=== PATIENT | male | born 1945 | race Caucasian/White ===

== ENCOUNTER → 2017-05-05 12:41 | Outpatient (POV) | payer MEDICARE, SELFPAY | PROVIDERS: Family Provider Family Medicine; PCP Family Medicine; Visit Provider Dermatology | DX: Z00.00 Encounter for general adult medical examination without abnormal findings (principal) ==

== ENCOUNTER 2019-09-01 09:48 | Observation (INO) | payer MEDICARE, SELFPAY ==
[2019-09-01 10:00] VITALS: BP 167/80; PULSE 63; RESP 18; TEMP 37.1; O2SAT 96; BMI 31.5
--- NOTE | 2019-09-01 10:06 | CT_ITS ---
PROCEDURE: CT ABDOMEN PELVIS WO CON CLINICAL INDICATION: RLQ PAIN Right lower quadrant pain COMPARISON: No exams were available for comparison TECHNIQUE: Axial images obtained with sagittal and coronal reformats. All CT scans at the facility use one or more dose reduction, viz: automated exposure control, ma/kV adjustment per patient size (including targeted exams where dose is matched to indication, i.e. head), or iterative reconstruction technique. FINDINGS: LOWER THORAX: No acute finding. Coronary artery calcifications are present ABDOMEN & PELVIS: The liver, spleen, gallbladder, adrenal glands, and pancreas have an unremarkable unenhanced appearance. There is mild right hydronephrosis and proximal hydroureter secondary to a 4 mm stone in the proximal to mid 3rd of the right ureter. The stone is at the L4 level. There is mild stranding of the right perinephric renal fat. In addition, there is a 3 mm stone in the mid polar region of the right kidney and a 3 mm stone in the upper pole of the left kidney with bilateral renal cysts noted. No evidence of appendicitis, intestinal obstruction, free air, or diverticulitis. There are few scattered colonic diverticula. There is a tiny umbilical hernia which contains fat. There is mild thickening of the nondistended urinary bladder. There are bilateral hydroceles present of the scrotum with some minimal calcification along the inferior aspect of the right testicle nonspecific. No acute bony findings. IMPRESSION: 1. 4 mm mid to proximal right ureteral stone with mild right hydronephrosis with bilateral nephrolithiasis and mild stranding of the right perinephric renal fat 2. No evidence of appendicitis. 3. Small bilateral hydroceles 4. Other nonacute findings as described above. Dictated by: Demetris Perez MD 09/01/2019 11:10 Electronically signed by Demetris Perez MD in [place] 09/01/2019 11:10
--- NOTE | 2019-09-01 10:07 | HMH.EDABDPAI ---
ED Disposition Clinical Impression: Abdominal pain, Pancreatitis, Calculus of kidney Disposition: Admitted as Observation Condition on Discharge: Good Instructions: DI for Acute Abdomen Referrals: Gavin Charles MD [Primary Care Provider] - - Critical Care Critical Care Time: No Attestation: On 09/01/19, the high probability of a clinically significant, sudden or life threatening deterioration of the following system(s) required my full and direct attention, intervention and personal management. The time I documented below is in addition to time spent performing reported procedures but includes the following listed in this critical care notation. Medical Decision Making - Medical Records Medical records reviewed: Yes: I reviewed the patient's medical records. - Toi Inquiry Pt receiving controlled substance: No Vital Signs: 09/01/19 10:00 Temperature 98.7 F Temperature Source Oral Pulse Rate [Right Radial] 63 Respiratory Rate 18 Blood Pressure [Right Arm] 167/80 H Blood Pressure Mean [Right Arm] 109 Blood Pressure Source [Right Arm] Automatic Cuff Blood Pressure Position [Right Arm] Sitting 02 Sat by Pulse Oximetry 96 Oxygen Delivery Method Room Air - Lab Data Lab results reviewed: Yes: I reviewed the patient's lab results. Lab Results 09/01/19 10:00: WBC 8.0, RBC 4.76, Hgb 13.8 L, Hct 42.2, MCV 88.7, MCH 29.0, MCHC 32.7, RDW 14.5, Plt Count 301, MPV 8.8, Neut % (Auto) 68.6, Lymph % (Auto) 20.9, [place] % (Auto) 4.9, Eos % (Auto) 5.0, Baso % (Auto) 0.5, Neut # (Auto) 5.5, Lymph # (Auto) 1.7, [place] # (Auto) 0.4, Eos # (Auto) 0.4, Baso # (Auto) 0.0 09/01/19 10:00: Sodium 140, Potassium 4.2, Chloride 103, Carbon Dioxide 25, Anion Gap 16.2 H, BUN 25 H, Creatinine 1.50 H, Estimated Creat Clear 61, Estimated GFR 46 L, Est GFR ( Amer) 55 L, Glucose 216 H, Calcium 9.7, Total Bilirubin 0.5, AST 26, ALT 28, Alkaline Phosphatase 44, Total Protein 8.2, Albumin 4.5, Globulin 3.7 H, Albumin/Globulin Ratio 1.2, Amylase 128 H, Lipase 2569 H 09/01/19 10:07: Urine Color Yellow, Urine Appearance Clear, Urine pH 6.0, Ur Specific [place] 1.025, Urine Protein 2+, Urine Glucose (UA) Negative, Urine Ketones Negative, Urine Blood 2+, Urine Nitrate Negative, Urine Bilirubin Negative, Urine Urobilinogen 0.2, Ur Leukocyte Esterase Negative, Urine RBC 10-20, Urine WBC Occasional, Ur Squamous Epith Cells 3-5, Urine Bacteria Trace Result diagrams: 09/01/19 10:00 09/01/19 10:00 Orders (Tests/Meds): ED MEDICATIONS Generic Name Dose Route Start Last Admin Trade Name Freq PRN Reason Stop Dose Admin Sodium Chloride 1,000 mls @ 999 mls/hr 09/01/19 10:54 09/01/19 11:00 Sod Chlor 0.9% 1000ml Bag IV 09/01/19 11:54 999 mls/hr .Q1H1M ONE Administration Discontinued Medications Generic Name Dose Route Start Last Admin Trade Name Freq PRN Reason Stop Dose Admin Ketorolac Tromethamine 30 mg 09/01/19 10:06 09/01/19 10:08 Toradol 30mg/Ml Vial IV 09/01/19 10:07 30 mg ONCE ONE Administration Ondansetron HCl 4 mg 09/01/19 10:06 09/01/19 10:08 Zofran 4mg/2ml Vial IV 09/01/19 10:07 4 mg ONCE ONE Administration - CT Data CT Scan: Abdomen, Pelvis Time Received: 11:19 Preliminary Findings: Abnormal (1. 4 mm mid to proximal right ureteral stone with mild right hydronephrosis with bilateral nephrolithiasis and mild stranding of the right perinephric renal fat ) Medical Decision Narrative: Spoke to Dr. Starr of admission for this patient for acute pancreatitis and calculus of right kidney 4 mm stone in the UVJ. Abdominal Pain HPI - General Chief Complaint: Abdominal Pain Stated Complaint: Abdominal Pain,nausea Time Seen by Provider: 09/01/19 10:08 Mode of Arrival: Ambulatory Limitations: No Limitations Description of Symptoms (Recalled from ER Triage Doc. by RN): PT C/O RLQ PAIN THAT BEGAN THIS MORNING W/ PAIN INDUCED NAUSEA. PT ADVISES THAT HE THOUGHT IT WAS D/T THE NEED TO HAVE A BM. PT STA
[2019-09-01 10:13] LABS: Microscopic, Urine URINE MICROSCOPIC (MICROSCOPIC)
[2019-09-01 10:17] LABS: Basophils % 0.5 % (0.1-2.0); Eosinophils # 0.4 K/mm3 (0.0-0.4); Hematocrit 42.2 % (42.0-52.0); Hemoglobin 13.8 g/dL (14.1-18.0); Lymphocytes # 1.7 K/mm3 (0.7-4.5); Lymphocytes % 20.9 % (10-50); Mean Corpuscular HGB Conc 32.7 g/dL (31.8-35.4); Mean Corpuscular Volume 88.7 fl (80-94); Mean Platelet Volume 8.8 fl (7.4-10.4); Monocytes # 0.4 K/mm3 (0.1-1.0); Monocytes % 4.9 % (1.7-9.3); Neutrophils # 5.5 K/mm3 (1.8-7.8); Neutrophils % 68.6 % (37.0-80.0); Platelet Count 301 K/mm3 (142-424); Red Blood Count 4.76 M/mm3 (4.60-6.20); Red Cell Distribution Width 14.5 % (11.5-17.5)
[2019-09-01 10:18] LABS: Chloride 103 mmol/L (98-107)
[2019-09-01 10:19] LABS: Potassium 4.2 mmoL/L (3.5-5.1); Sodium 140 mmol/L (136-145)
[2019-09-01 10:21] LABS: Alanine Aminotransferase 28 U/L (12-78); Alkaline Phosphatase 44 U/L (38-126); Amylase 128 U/L (30-110); Anion Gap 16.2 mEq/L (5-15); Aspartate Amino Transferase 26 U/L (17-59); Bilirubin,Total 0.5 mg/dl (0.2-1.3); Blood Urea Nitrogen 25 mg/dl (9-20); Carbon Dioxide 25 mmol/L (22.0-30.0); Creatinine Clearance Estimated 61 mL/min (50-200); Estimated Glomerular Filt Rate 46 ml/min (>60); GFR (African American) 55 ML/MIN (>60)
[2019-09-01 10:22] LABS: Albumin Level 4.5 g/dl (3.5-5.0); Albumin/Globulin Ratio 1.2 (1.1-1.8); Calcium 9.7 mg/dl (8.4-10.2); Globulin 3.7 g/dL (1.3-3.2); Glucose 216 mg/dl (74-100); Total Protein,Serum 8.2 g/dl (6.3-8.2)
[2019-09-01 10:26] LABS: Appearance,Urine CLEAR (Clear); Bilirubin,Urine Negative (Negative); Blood, Urine 2+ (Negative); Color,Urine YELLOW (Yellow); Glucose,Urine (UA) Negative (Negative); Ketones,Urine Negative (Negative); Leukocyte Esterase,Urine Negative (Negative); Nitrate,Urine Negative (Negative); Protein,Urine 2+ (Negative); Specific Gravity, Urine 1.025 (1.005-1.030); Urobilinogen,Urine 0.2 EU/dl (0.2)
--- NOTE | 2019-09-01 10:31 | PC.NURSE ---
PT HAS RETURNED FROM RAD AT THIS TIME.
[2019-09-01 10:40] LABS: Lipase 2569 U/L (23-300)
--- NOTE | 2019-09-01 10:53 | PC.NURSE ---
PAGING DR CABRERA AT THIS TIME. 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
[2019-09-01 10:57] LABS: Bacteria,Urine Trace /lpf; WBC,Urine Occasional #/hpf (0-3)
--- NOTE | 2019-09-01 11:22 | PC.NURSE ---
SPEAKING WITH DR CABRERA AT THIS TIME.
--- NOTE | 2019-09-01 11:30 | PC.NURSE ---
CALLED CHARGE NURSE FOR BED ASSIGNMENT. PATIENT WILL BE ADMITTED TO ROOM 209. ER STAFF NOTIFIED
[2019-09-01 11:47] VITALS: BMI 27.6
--- NOTE | 2019-09-01 11:52 | PC.NURSE ---
Per Maggy Garner RN orders received from Dr. Goodwin for FSBS ACHS w/ low intensity sliding scale. Orders read back and verified.
[2019-09-01 12:00] VITALS: BP 170/90; PULSE 83; RESP 20; TEMP 36.7; O2SAT 98
[2019-09-01 12:18] VITALS: BP 154/85; PULSE 80; RESP 20; TEMP 36.8; O2SAT 98
--- NOTE | 2019-09-01 12:56 | HMH.HP ---
*Admission Date: 09/01/19 *Chief complaint: Abdominal pain *History of present illness: Mr. Weber is a 73-year-old white male who developed sudden onset of right lower quadrant pain earlier this morning. He initially thought it was related to constipation but after using a suppository and having a satisfactory bowel movement, the pain persisted and gradually worsened until he presented to the emergency room. He had no complaints of nausea, vomiting, or fever. He was worked up in the emergency room and found to have a normal white count. Metabolic profile was fairly unremarkable except for some chronic renal insufficiency. His amylase was mildly elevated at 128 but the lipase was significantly elevated at 2500. Urinalysis showed microscopic hematuria. He was initially felt to have pancreatitis but CT scan of the abdomen was carried out with findings of a 4 mm right distal ureteral stone with mild hydronephrosis. This finding is most consistent with his presentation. The pancreas appeared unremarkable on the CT scan. He does have a past history of kidney stones all of which he has passed spontaneously. [facility] History Medical History: Reports:: Diabetes Mellitus Type 2, Hyperlipidemia, Hypertension, Kidney Stones, Renal Insufficiency Denies:: Atherosclerotic Heart Disease, Congestive Heart Failure, Chronic Obstructive Pulmonary Disease (COPD), Diabetes Mellitus Type 1, Gall Bladder Disease *Have you ever received a pneumonia vaccine?: Yes *Have you received a flu vaccine this season?: Yes Other Medical History: Reports: Hypothyroidism, Other (Hyperuricemia, hyperlipidemia, BPH) Other Surgeries: Yes: Other (Dental implants) - *Social History Educational Level: Completed College Smoking Status: Former smoker Alcohol Intake: never *Occupational Status:: retired Housing: house Household Members: spouse *Travel in the last 8 weeks: None Family Hx:: No significant family history Review of Systems - Constitutional Denies body ache(s), Denies chills, Denies night sweats - Eyes Denies change in vision - ENT Denies difficulty swallowing - *Cardiovascular Denies chest pain with activity, Denies shortness of breath, Denies rapid, pounding, or irregular heartbeat - *Respiratory Denies chest congestion, Denies cough, Denies shortness of breath - *Gastrointestinal Reports change in bowel habits, Denies black, tarry stools, Denies nausea - *Genitourinary Reports urinary hesitancy (Takes Flomax), Denies difficulty urinating, Denies painful urination, Denies blood in urine - *Musculoskeletal Denies joint pain, Denies muscle weakness - Integumentary/Breasts Denies yellowing of the skin, Denies unusual bruising - *Neurologic Denies confusion, Denies dizziness - Psychiatric Denies anxiety, Denies depression - Endocrine Denies flushing - Hematologic/Lymphatic Denies easy bruising Meds Home Medications Medication Instructions Recorded Confirmed Type Amlodipine Besylate [Amlodipine 10 mg PO DAILY 09/01/19 09/01/19 History 10mg Tab] Fenofibrate 160 mg PO DAILY 09/01/19 09/01/19 History Levothyroxine Sodium 125 mcg PO DAILY 09/01/19 09/01/19 History [Levothyroxine 125mcg (0.125mg) Tab] Losartan Potassium [Cozaar 100mg 100 mg PO DAILY 09/01/19 09/01/19 History Tablets] Metformin HCl [Metformin 1000mg 1,000 mg PO BID 09/01/19 09/01/19 History Tablets] Tamsulosin HCl 0.4 mg PO BID 09/01/19 09/01/19 History allopurinoL [Allopurinol 100mg 100 mg PO DAILY 09/01/19 09/01/19 History tablet] carvediloL [Carvedilol 25mg Tab] 25 mg PO BID 09/01/19 09/01/19 History hydroCHLOROthiazide [HCTZ 25mg 12.5 mg PO DAILY 09/01/19 09/01/19 History tab] Allergies Allergy/AdvReac Type Severity Reaction Status Date / Time No Known Allergies Allergy Unverified 09/01/19 11:57 Exam Vital signs and Labs for Last 24 Hours: Temp Pulse Resp BP Pulse Ox 98.2 F 80 20 154/85 H 96 08/31
[2019-09-01 13:10] LABS: POC Glucose,Bedside 194 (70-110)
--- NOTE | 2019-09-01 14:03 | P.CONPHA_ITS ---
[facility] Pharm[facility] VTE Monitoring - Patient Demographics Admission date: 09/01/19 Report Date: 09/01/19 Time: 14:03 Allergies/Adverse Reactions: Patient Allergies No Known Allergies Allergy (Unverified 09/01/19 11:57) Height: 1.78 m Weight: 99.79 kg Patient Problems: Current Active Problems Abdominal pain (Acute) Pancreatitis (Acute) Calculus of kidney (Acute) Right lower quadrant abdominal pain (Acute) Right ureteral calculus (Acute) Hypertension (Acute) Hyperlipidemia (Acute) Hypothyroidism (Acute) BPH (benign prostatic hyperplasia) (Acute) Type 2 diabetes mellitus (Acute) - VTE Risk Labs: VTE Related Lab Results Hgb 13.8 g/dL (14.1-18.0) L 09/01/19 10:00 Hct 42.2 % (42.0-52.0) 09/01/19 10:00 Plt Count 301 K/mm3 (142-424) 09/01/19 10:00 BUN 25 mg/dl (9-20) H 09/01/19 10:00 Creatinine 1.50 mg/dl (0.66-1.25) H 09/01/19 10:00 Estimated Creat Clear 61 mL/min (50-200) 09/01/19 10:00 Was VTE Risk Assessment Performed: Yes VTE Risk Level: Very Low Risk - Prophylaxis VTE Prophylaxis Ordered?: Yes Types of VTE Prophylaxis: TEDS Knee High Location of Applied Device: Bilateral Lower Extremeties
[2019-09-01 16:00] VITALS: BP 163/94; PULSE 56; RESP 18; TEMP 36.4; O2SAT 96
[2019-09-01 16:45] LABS: POC Glucose,Bedside 132 (70-110)
--- NOTE | 2019-09-01 19:26 | PC.NURSE ---
Dr. Vargas contacted. Aware of consult.
[2019-09-01 20:00] VITALS: BP 146/86; PULSE 54; RESP 18; TEMP 36.5; O2SAT 95
[2019-09-01 20:36] LABS: POC Glucose,Bedside 99 (70-110)
[2019-09-02 04:00] VITALS: BP 169/93; PULSE 63; RESP 17; TEMP 36.9; O2SAT 97
--- NOTE | 2019-09-02 04:55 | PC.NURSE ---
Addendum entered by Magno Edgar RN 09/02/19 07:14: No stone passed this shift. Original Note: Pt slept in long intervals this shift. Pt did have c/o moderate abdominal pain and was medicated per BARBARA w/ relief. Carvedilol held per MD orders for HR <60. No c/o dizziness, N/V/D, or SOA. Pt is tolerating diet restriction of ice chips w/o issues. Refused TEDS. Urine continues to be strained.
[2019-09-02 05:11] VITALS: BMI 30.3
--- NOTE | 2019-09-02 05:42 | PC.NURSE ---
pt weight this am is 212.1lb on bed scale #3202, all extra pillows and blankets were removed, nurse at bedside while reweighing pt. previous shift recorded weight of 192.3lb on bed scale 3208. RN aware of weight change.
[2019-09-02 05:48] LABS: POC Glucose,Bedside 130 (70-110)
[2019-09-02 07:23] LABS: Basophils % 0.5 % (0.1-2.0); Eosinophils # 0.4 K/mm3 (0.0-0.4); Eosinophils % 3.9 % (0.1-12.0); Hematocrit 35.7 % (42.0-52.0); Lymphocytes # 1.6 K/mm3 (0.7-4.5); Lymphocytes % 17.9 % (10-50); Mean Corpuscular HGB Conc 33.5 g/dL (31.8-35.4); Mean Corpuscular Hemoglobin 29.6 pg (27.0-31.2); Mean Corpuscular Volume 88.3 fl (80-94); Mean Platelet Volume 8.9 fl (7.4-10.4); Monocytes # 0.5 K/mm3 (0.1-1.0); Monocytes % 5.6 % (1.7-9.3); Neutrophils # 6.4 K/mm3 (1.8-7.8); Neutrophils % 72.1 % (37.0-80.0); Platelet Count 247 K/mm3 (142-424); Red Blood Count 4.05 M/mm3 (4.60-6.20); Red Cell Distribution Width 14.6 % (11.5-17.5); White Blood Count 8.9 K/mm3 (4.8-10.8)
[2019-09-02 07:31] LABS: Alanine Aminotransferase 20 U/L (12-78); Albumin Level 3.8 g/dl (3.5-5.0); Albumin/Globulin Ratio 1.2 (1.1-1.8); Alkaline Phosphatase 40 U/L (38-126); Amylase 61 U/L (30-110); Anion Gap 10.9 mEq/L (5-15); Aspartate Amino Transferase 29 U/L (17-59); Bilirubin,Total 0.4 mg/dl (0.2-1.3); Blood Urea Nitrogen 21 mg/dl (9-20); Calcium 8.8 mg/dl (8.4-10.2); Carbon Dioxide 27 mmol/L (22.0-30.0); Chloride 104 mmol/L (98-107); Chol/HDL Ratio 4.4 (1-3.5); Cholesterol 144 mg/dl (140-200); Creatinine Clearance Estimated 63 mL/min (50-200); Estimated Glomerular Filt Rate 50 ml/min (>60); GFR (African American) 60 ML/MIN (>60); Globulin 3.1 g/dL (1.3-3.2); Glucose 144 mg/dl (74-100); HDL Cholesterol 33 mg/dl (40-60); Lipase 328 U/L (23-300); Potassium 3.9 mmoL/L (3.5-5.1); Sodium 138 mmol/L (136-145); Total Protein,Serum 6.9 g/dl (6.3-8.2); Triglycerides 210 mg/dl (30-150); VLDL Cholesterol 42 mg/dL (0-40)
[2019-09-02 07:42] LABS: Direct LDL Cholesterol 87.55 mg/dL (100-129)
[2019-09-02 08:00] VITALS: BP 156/72; PULSE 56; RESP 17; TEMP 36.7; O2SAT 96
--- NOTE | 2019-09-02 09:09 | HMH.ACPN2 ---
Internal Medicine - PN: Wilmer *Date: 09/02/19 *Time: 09:09 Interval history: He has required a couple of doses of pain medicine since yesterday but rested fairly well last night. He has not passed any stones. Overall his pain is improved. He denies nausea and feels a little hungry. Exam Vital signs and Labs for Last 24 Hours: Temp Pulse Resp BP Pulse Ox 98.1 F 56 L 17 156/72 H 96 09/02/19 08:00 09/02/19 08:00 09/02/19 08:00 09/02/19 08:00 09/02/19 08:00 Laboratory Results - last 24 hr 09/01/19 10:00: WBC 8.0, RBC 4.76, Hgb 13.8 L, Hct 42.2, MCV 88.7, MCH 29.0, MCHC 32.7, RDW 14.5, Plt Count 301, MPV 8.8, Neut % (Auto) 68.6, Lymph % (Auto) 20.9, Saline % (Auto) 4.9, Eos % (Auto) 5.0, Baso % (Auto) 0.5, Neut # (Auto) 5.5, Lymph # (Auto) 1.7, Saline # (Auto) 0.4, Eos # (Auto) 0.4, Baso # (Auto) 0.0 09/01/19 10:00: Sodium 140, Potassium 4.2, Chloride 103, Carbon Dioxide 25, Anion Gap 16.2 H, BUN 25 H, Creatinine 1.50 H, Estimated Creat Clear 61, Estimated GFR 46 L, Est GFR ( Amer) 55 L, Glucose 216 H, Calcium 9.7, Total Bilirubin 0.5, AST 26, ALT 28, Alkaline Phosphatase 44, Total Protein 8.2, Albumin 4.5, Globulin 3.7 H, Albumin/Globulin Ratio 1.2, Amylase 128 H, Lipase 2569 H 09/01/19 10:07: Urine Color Yellow, Urine Appearance Clear, Urine pH 6.0, Ur Specific [place] 1.025, Urine Protein 2+, Urine Glucose (UA) Negative, Urine Ketones Negative, Urine Blood 2+, Urine Nitrate Negative, Urine Bilirubin Negative, Urine Urobilinogen 0.2, Ur Leukocyte Esterase Negative, Urine RBC 10-20, Urine WBC Occasional, Ur Squamous Epith Cells 3-5, Urine Bacteria Trace 09/01/19 13:03: POC Glucose 194 H 09/01/19 16:37: POC Glucose 132 H 09/01/19 20:18: POC Glucose 99 09/02/19 05:40: POC Glucose 130 H 09/02/19 06:45: WBC 8.9, RBC 4.05 L, Hgb 12.0 L D, Hct 35.7 L, MCV 88.3, MCH 29.6, MCHC 33.5, RDW 14.6, Plt Count 247, MPV 8.9, Neut % (Auto) 72.1, Lymph % (Auto) 17.9, [place] % (Auto) 5.6, Eos % (Auto) 3.9, Baso % (Auto) 0.5, Neut # (Auto) 6.4, Lymph # (Auto) 1.6, Saline # (Auto) 0.5, Eos # (Auto) 0.4, Baso # (Auto) 0.0 09/02/19 06:45: Sodium 138, Potassium 3.9, Chloride 104, Carbon Dioxide 27, Anion Gap 10.9, BUN 21 H, Creatinine 1.40 H, Estimated Creat Clear 63, Estimated GFR 50 L, Est GFR ( Amer) 60, Glucose 144 H D, Calcium 8.8, Total Bilirubin 0.4, AST 29, ALT 20 D, Alkaline Phosphatase 40, Total Protein 6.9, Albumin 3.8 D, Globulin 3.1, Albumin/Globulin Ratio 1.2, Triglycerides 210 H, Cholesterol 144, LDL Cholesterol Direct 87.55 L, VLDL Cholesterol 42 H, HDL Cholesterol 33 L, Cholesterol/HDL Ratio 4.4 H, Amylase 61 D, Lipase 328 H I & O for Last 24 hours: Intake & Output 08/30/19 08/31/19 09/01/19 09/02/19 11:59 11:59 11:59 11:59 Intake Total 3861 / 3861 Output Total 500 / 500 Balance 3361 / 3361 Weight 192 lb 6 oz 212 lb 1 oz Narrative: Sitting up in bed alert and in no distress. Color is normal. Lungs are clear. Heart is regular. Abdomen is soft and nondistended with only minimal right lower quadrant tenderness. No CVA tenderness. Assessment and Plan (1) Right lower quadrant abdominal pain Current visit: Yes Status: Acute Category: Medical Code(s): R10.31 - Right lower quadrant pain (2) Right ureteral calculus Current visit: Yes Status: Acute Category: Medical Code(s): N20.1 - Calculus of ureter (3) Pancreatitis Current visit: Yes Status: Acute Category: Medical Code(s): K85.90 - Acute pancreatitis without necrosis or infection, unspecified (4) Hypertension Current visit: Yes Status: Acute Category: Medical Code(s): I10 - Essential (primary) hypertension (5) Hyperlipidemia Current visit: Yes Status: Acute Category: Medical Code(s): E78.5 - Hyperlipidemia, unspecified (6) Hypothyroidism Current visit: Yes Status: Acute Category: Medical Code(s): E03.9 - Hypothyroidism, unspecified (7) BPH (benign prostatic hyperplasia) Current visit: Yes Sta
[2019-09-02 11:23] LABS: POC Glucose,Bedside 158 (70-110)
[2019-09-02 16:00] VITALS: BP 158/87; PULSE 58; RESP 16; TEMP 36.6; O2SAT 96
[2019-09-02 16:23] LABS: POC Glucose,Bedside 164 (70-110)
--- NOTE | 2019-09-02 16:31 | PC.NURSE ---
PT IS RESTING IN BED. NO COMPLAINTS OF DISCOMFORT. ALERT AND ORIENTED X4. PT HAS TOLERATED FULL LIQUID DIET. NS INFUSING @125MLS/HR. AMBULATED AROUND THE ROOM. VSS. BETA VEGA HELD THIS SHIFT ( HR ONLY 56 ). CONTINUING TO STRAIN URINE. LUNG SOUNDS CLEAR. BOWEL SOUNDS NORMAL. PT STATES HIS LAST BOWEL MOVEMENT WAS YESTERDAY MORNING. SHOWER AND LINEN CHANGE THIS SHIFT. WILL CONTINUE TO MONITOR.
[2019-09-02 20:00] VITALS: BP 177/90; PULSE 51; RESP 16; TEMP 36.8; O2SAT 97
[2019-09-02 21:38] LABS: POC Glucose,Bedside 110 (70-110)
[2019-09-03 04:00] VITALS: BP 171/93; PULSE 53; RESP 16; TEMP 36.7; O2SAT 97
--- NOTE | 2019-09-03 05:07 | PC.NURSE ---
No acute changes noted. Pt has rested well this shift. C/O some abdominal discomfort at beginning of shift. No additional complaints noted. VSS. Medication administered per jun. Pt is NPO for AM US. Call light within reach. Will continue to monitor.
[2019-09-03 05:50] VITALS: BMI 23.3
[2019-09-03 06:27] LABS: Chloride 109 mmol/L (98-107); Potassium 3.6 mmoL/L (3.5-5.1); Sodium 139 mmol/L (136-145)
[2019-09-03 06:30] LABS: Anion Gap 7.6 mEq/L (5-15); Carbon Dioxide 26 mmol/L (22.0-30.0); Lipase 68 U/L (23-300)
[2019-09-03 06:31] LABS: Calcium 8.6 mg/dl (8.4-10.2); Glucose 142 mg/dl (74-100)
[2019-09-03 06:35] LABS: Blood Urea Nitrogen 13 mg/dl (9-20); Creatinine Clearance Estimated 52 mL/min (50-200); Estimated Glomerular Filt Rate 54 ml/min (>60); GFR (African American) 65 ML/MIN (>60)
[2019-09-03 07:57] LABS: POC Glucose,Bedside 135 (70-110)
[2019-09-03 08:00] VITALS: BP 176/80; PULSE 59; RESP 20; TEMP 36.7; O2SAT 95
--- NOTE | 2019-09-03 08:00 | US_ITS ---
PROCEDURE: US GALLBLADDER CLINICAL INDICATION: pancreatitis Pain, history of pancreatitis COMPARISON: CT ABDOMEN PELVIS WO CON from 09/01/2019 FINDINGS: Pancreas: Pancreas is not well delineated due to overlying bowel gas. Liver: There is generalized increase in echogenicity of the liver consistent with hepatic steatosis.. There is appropriate direction of blood flow within a and mildly prominent portal vein measuring up to 16 mm.. Right kidney: Unremarkable appearing. No hydronephrosis. Gallbladder: No stones are evident. There is no gallbladder wall thickening. Common duct is normal in diameter. IMPRESSION: 1. Unremarkable gallbladder ultrasound. 2. Fatty liver. Mildly prominent portal vein. Dictated by: Demetris Perez MD 09/03/2019 11:50 Electronically signed by Demetris Perez MD in [place] 09/03/2019 11:50
[2019-09-03 08:10] VITALS: PULSE 59; O2SAT 95
--- NOTE | 2019-09-03 09:01 | HMH.ACPN2 ---
Internal Medicine - PN: Subj *Date: 09/03/19 *Time: 09:01 Interval history: Patient has no pain today, awaiting RUQ U/S. Exam Vital signs and Labs for Last 24 Hours: Temp Pulse Resp BP Pulse Ox 98.0 F 59 L 20 176/80 H 95 09/03/19 08:00 09/03/19 08:10 09/03/19 08:00 09/03/19 08:00 09/03/19 08:10 Laboratory Results - last 24 hr 09/02/19 11:07: POC Glucose 158 H 09/02/19 16:10: POC Glucose 164 H 09/02/19 21:12: POC Glucose 110 09/03/19 05:40: Sodium 139, Potassium 3.6, Chloride 109 H, Carbon Dioxide 26, Anion Gap 7.6, BUN 13 D, Creatinine 1.30 H, Estimated Creat Clear 52, Estimated GFR 54 L, Est GFR ( Amer) 65, Glucose 142 H, Calcium 8.6, Lipase 68 09/03/19 06:09: POC Glucose 135 H I & O for Last 24 hours: Intake & Output 08/31/19 09/01/19 09/02/19 09/03/19 23:59 23:59 23:59 23:59 Intake Total 2175 / 2175 3942 / 3942 0 / 0 Output Total 500 / 500 150 / 150 Balance 1675 / 1675 3942 / 3792 -150 / -150 Weight 192 lb 6 oz 212 lb 1 oz 163 lb 3.014 oz - Constitutional no acute distress - *Routine HEENT Exam Head: Present: normocephalic Eye: Present: EOMI ENT: Present: mucous membranes moist - *Routine Neck Exam Present: supple. Absent: lymphadenopathy - *Routine Respiratory Exam Present: CTA bilaterally - *Routine Cardiovascular Exam Present: RRR - *Routine Abdominal Exam Present: soft, normoactive bowel sounds. Absent: tenderness - *Routine Extremities Exam Absent: cyanosis, clubbing, edema - *Routine Skin Exam Present: warm. Absent: rash - *Routine Neurological Exam Present: alert, oriented X3 Assessment and Plan (1) Right lower quadrant abdominal pain Current visit: Yes Status: Acute Category: Medical Code(s): R10.31 - Right lower quadrant pain (2) Right ureteral calculus Current visit: Yes Status: Acute Category: Medical Code(s): N20.1 - Calculus of ureter (3) Pancreatitis Current visit: Yes Status: Acute Category: Medical Code(s): K85.90 - Acute pancreatitis without necrosis or infection, unspecified (4) Hypertension Current visit: Yes Status: Acute Category: Medical Code(s): I10 - Essential (primary) hypertension (5) Hyperlipidemia Current visit: Yes Status: Acute Category: Medical Code(s): E78.5 - Hyperlipidemia, unspecified (6) Hypothyroidism Current visit: Yes Status: Acute Category: Medical Code(s): E03.9 - Hypothyroidism, unspecified (7) BPH (benign prostatic hyperplasia) Current visit: Yes Status: Acute Category: Medical Code(s): N40.0 - Benign prostatic hyperplasia without lower urinary tract symptoms (8) Type 2 diabetes mellitus Current visit: Yes Status: Acute Category: Medical Code(s): E11.9 - Type 2 diabetes mellitus without complications - Assessment and plan all Dx Assessment and Plan for all problems:: Patient has improved, saline lock IVF today, check RUQ U/S.
--- NOTE | 2019-09-03 11:22 | PC.NURSE ---
1122 asked for clarification from on diet order for pt. also stated during am rounds that pt is to be saline locked following completion of bag that was infusing during rounds. Dr Charles was also notified (via nurse in office) that Dr Vargas consulted on pt and states pt is ok for d/c. he will follow up with pt on tuesday. states for pt to continue to strain urine and push fluids. no surgery necessary. awaiting call back with new orders
--- NOTE | 2019-09-03 11:43 | PC.NURSE ---
returned call at this time. pt to have low fat low cholesterol diet
--- NOTE | 2019-09-03 12:19 | HMH.CONS ---
*Admission Date: 09/01/19 *Reason for consult:: Right proximal ureteral stone *History of present illness: 73-year-old white male admitted Saturday morning with Groin pain. CT scan revealed a 4 mm right proximal ureteral stone with some moderate hydronephrosis. White count was normal at 8000 in creatinine was 1.5. His amylase was elevated at 128 and his lipase was very elevated at 2569. There is also concern that he may have some pancreatitis. Abdominal ultrasound was performed this morning and is pending. Patient denies any significant renal colic or groin pain since his admission. He appears very comfortable in his room this morning. CT scan and labs were reviewed. [facility] History Medical History: Reports:: Diabetes Mellitus Type 2, Hyperlipidemia, Hypertension, Kidney Stones, Renal Insufficiency Denies:: Atherosclerotic Heart Disease, Congestive Heart Failure, Chronic Obstructive Pulmonary Disease (COPD), Diabetes Mellitus Type 1, Gall Bladder Disease *Have you ever received a pneumonia vaccine?: Yes *Have you received a flu vaccine this season?: Yes Other Medical History: Reports: Hypothyroidism, Other (Hyperuricemia, hyperlipidemia, BPH) Other Surgeries: Yes: Other (Dental implants) - *Social History Educational Level: Completed College Smoking Status: Former smoker Alcohol Intake: never *Occupational Status:: retired Housing: house Household Members: spouse *Travel in the last 8 weeks: None Family Hx:: No significant family history Review of Systems - *Neurologic Denies confusion, Denies dizziness Meds Home Medications Medication Instructions Recorded Confirmed Type Amlodipine Besylate [Amlodipine 10 mg PO DAILY 09/01/19 09/01/19 History 10mg Tab] Aspirin 81 mg PO DAILY 09/01/19 09/01/19 History Atorvastatin Calcium [Atorvastatin 40 mg PO HS 09/01/19 09/01/19 History 40mg Tab] Fenofibrate 160 mg PO DAILY 09/01/19 09/01/19 History Levothyroxine Sodium 125 mcg PO DAILY 09/01/19 09/01/19 History [Levothyroxine 125mcg (0.125mg) Tab] Losartan Potassium [Cozaar 100mg 100 mg PO DAILY 09/01/19 09/01/19 History Tablets] Metformin HCl [Metformin 1000mg 1,000 mg PO BID 09/01/19 09/01/19 History Tablets] Tamsulosin HCl 0.8 mg PO DAILY 09/01/19 09/01/19 History allopurinoL [Allopurinol 100mg 200 mg PO DAILY 09/01/19 09/01/19 History tablet] carvediloL [Carvedilol 25mg Tab] 25 mg PO BID 09/01/19 09/01/19 History hydroCHLOROthiazide [HCTZ 25mg 12.5 mg PO DAILY 09/01/19 09/01/19 History tab] Allergies Allergy/AdvReac Type Severity Reaction Status Date / Time No Known Allergies Allergy Unverified 09/01/19 11:57 Exam Vital signs and Labs for Last 24 Hours: Temp Pulse Resp BP Pulse Ox 98.0 F 59 L 20 176/80 H 95 09/03/19 08:00 09/03/19 08:10 09/03/19 08:00 09/03/19 08:00 09/03/19 08:10 Laboratory Results - last 24 hr 09/02/19 16:10: POC Glucose 164 H 09/02/19 21:12: POC Glucose 110 09/03/19 05:40: Sodium 139, Potassium 3.6, Chloride 109 H, Carbon Dioxide 26, Anion Gap 7.6, BUN 13 D, Creatinine 1.30 H, Estimated Creat Clear 52, Estimated GFR 54 L, Est GFR ( Amer) 65, Glucose 142 H, Calcium 8.6, Lipase 68 09/03/19 06:09: POC Glucose 135 H I & O for Last 24 hours: Intake & Output 08/31/19 09/01/19 09/02/19 09/03/19 23:59 23:59 23:59 23:59 Intake Total 2175 / 2175 3942 / 3942 0 / 0 Output Total 500 / 500 150 / 150 Balance 1675 / 1675 3942 / 3792 -150 / -150 Weight 87.26 kg 96.19 kg 74.021 kg Narrative: Well-nourished white male in no apparent distress Pupils equal round reactive to light Head is normocephalic Neck is symmetric Normal respiratory effort Abdomen normal to visual inspection Alert and oriented x3 Patient able to stand and bear weight without difficulty. Internal Medicine - CN: Reslt - Labs CBC & Chem 7: 09/02/19 06:45 09/03/19 05:40 Labs: BMP 09/03/19 05:40 Sodium 139 Potassium 3.6 Chlor
[2019-09-03 14:06] VITALS: BMI 23.3
[2019-09-03 14:47] LABS: POC Glucose,Bedside 138 (70-110)
--- NOTE | 2019-09-03 15:27 | PC.NURSE ---
pt home meds were locked in drawer. pharmacy technology instructor Melia gave meds to pt prior to nurse doing dc. pt has meds at this time
--- NOTE | 2019-09-03 16:09 | HMH.PHAINT ---
DISCHARGE COUNSELING COMPLETED.
--- NOTE | 2019-09-04 22:32 | HMH.DCSUM ---
General - General Admission date:: 09/01/19 Discharge date: 09/03/19 HPI HPI: Mr. Weber is a 73-year-old white male who developed sudden onset of right lower quadrant pain earlier this morning. He initially thought it was related to constipation but after using a suppository and having a satisfactory bowel movement, the pain persisted and gradually worsened until he presented to the emergency room. He had no complaints of nausea, vomiting, or fever. He was worked up in the emergency room and found to have a normal white count. Metabolic profile was fairly unremarkable except for some chronic renal insufficiency. His amylase was mildly elevated at 128 but the lipase was significantly elevated at 2500. Urinalysis showed microscopic hematuria. He was initially felt to have pancreatitis but CT scan of the abdomen was carried out with findings of a 4 mm right distal ureteral stone with mild hydronephrosis. This finding was most consistent with his presentation. The pancreas appeared unremarkable on the CT scan. He does have a past history of kidney stones all of which he has passed spontaneously. Hospital Course Hospital Course: The patient was admitted for IV fluids and pain management. There was an incidental finding of pancreatitis, although the pancreas appeared normal on CT scan. The patient did not have a history of hyperlipidemia or gallbladder disease. He did not drink alcohol. He did take hydrochlorothiazide which has been implicated as a cause of pancreatitis, therefore this was held. He was kept n.p.o. except for his maintenance medication. His diabetes was managed with sliding scale insulin. His Flomax dose was increased to twice daily and urology was consulted. His pain improved but he did not pass the stone. His amylase markedly improved and his diet was advanced. He had a lipid profile checked and it was satisfactory. A gallbladder ultrasound was ordered. It showed fatty liver but was otherwise unremarkable. His pain resolved. He was seen in consultation by Dr. Vargas who encouraged him to drink plenty of fluids and continue to strain his urine. He felt the patient could be discharged and follow-up with him on an outpatient basis with a KUB. The patient was discharged home and will follow up with both Dr. Charles and Dr. Vargas. Objective Vital signs: Temp Pulse Resp BP Pulse Ox 98.0 F 59 L 20 176/80 H 95 09/03/19 08:00 09/03/19 08:10 09/03/19 08:00 09/03/19 08:00 09/03/19 08:10 Narrative: He is sitting up in bed alert and oriented. He is more comfortable after receiving pain medication in the emergency room. Color is normal. HEENT shows the cranium to be atraumatic and normocephalic. Sclera conjunctive are clear. Nares patent. Oropharynx is unremarkable. Neck is supple with no masses or thyromegaly. Lungs are clear to auscultation. Heart is regular with no murmurs or ectopy. Abdomen is soft and nondistended with mild right lower quadrant tenderness. No rebound or guarding. Extremities show no edema. DS: Diagnosis - Discharge Diagnosis (1) Right lower quadrant abdominal pain Status: Acute (2) Right ureteral calculus Status: Acute (3) Pancreatitis Status: Acute (4) Hypertension Status: Acute (5) Hyperlipidemia Status: Acute (6) Hypothyroidism Status: Acute (7) BPH (benign prostatic hyperplasia) Status: Acute (8) Type 2 diabetes mellitus Status: Acute Discharge Plan - Patient Discharge Instructions ACTIVITY: Continue current activity DIET: continue same diet Patient Instructions: Eating a Diet Low in Saturated Fat, Trans Fat, and Cholesterol, Acute Pancreatitis, Kidney Stones -- Adult, Fat-Restricted Diet - Follow up Plan Follow up with: Gavin Charles MD [Primary Care Provider] - 09/07/19 9:30 am Kenan Vargas MD [Staff Physician] - 09/07/19 10:30 am (please arrive 15 minutes early for kub(x-ray) prior to appointment
== END 2019-09-03 15:31 | disposition home or self-care (01) ==
LOC: ER 11:24 → 2ND 12:43
PROVIDERS: Admitting Provider Family Medicine; Emergency Provider Family Medicine; PCP Family Medicine; Visit Provider Family Medicine
DX: R10.31 Right lower quadrant pain (principal); N20.1 Calculus of ureter; K85.80 Other acute pancreatitis without necrosis or infection; E11.9 Type 2 diabetes mellitus without complications; Z79.84 Long term (current) use of oral hypoglycemic drugs; Z79.899 Other long term (current) drug therapy; I10 Essential (primary) hypertension; E78.5 Hyperlipidemia, unspecified; E03.9 Hypothyroidism, unspecified; R31.29 Other microscopic hematuria; N40.0 Benign prostatic hyperplasia without lower urinary tract symptoms; Z87.891 Personal history of nicotine dependence
CPT/HCPCS: 36415; 74176; 76705; 80048; 80053; 80061; 81001; 82150; 82962; 83690; 85025; 96365; 96375; 99284; G0378; J2405

== ENCOUNTER 2019-09-05 04:49 | Emergency (ER) | payer MEDICARE, SELFPAY ==
[2019-09-05 04:59] LABS: Microscopic, Urine URINE MICROSCOPIC (MICROSCOPIC)
[2019-09-05 05:00] VITALS: BP 152/99; PULSE 57; RESP 16; TEMP 36.6; O2SAT 99; BMI 30.4
[2019-09-05 05:02] LABS: Appearance,Urine CLEAR (Clear); Bilirubin,Urine Negative (Negative); Blood, Urine 1+ (Negative); Color,Urine YELLOW (Yellow); Glucose,Urine (UA) Negative (Negative); Ketones,Urine Negative (Negative); Leukocyte Esterase,Urine Negative (Negative); Nitrate,Urine Negative (Negative); PH,Urine 6.5 (5.0-8.5); Protein,Urine 2+ (Negative); Urobilinogen,Urine 0.2 EU/dl (0.2)
--- NOTE | 2019-09-05 05:07 | CT_ITS ---
PROCEDURE: CT ABDOMEN PELVIS WO CON CLINICAL INDICATION: flank pain Right flank pain COMPARISON: CT ABDOMEN PELVIS WO CON from 09/01/2019 TECHNIQUE: Axial images obtained with sagittal and coronal reformats. All CT scans at the facility use one or more dose reduction, viz: automated exposure control, ma/kV adjustment per patient size (including targeted exams where dose is matched to indication, i.e. head), or iterative reconstruction technique. FINDINGS: LOWER THORAX: There are coronary artery calcifications and there is mild thickening of the pericardium. There is mild thickening of the distal esophagus is well. ABDOMEN & PELVIS: The liver, gallbladder, spleen, adrenal glands, and pancreas have an unremarkable unenhanced appearance. There is persistent right hydronephrosis and proximal hydroureter secondary to a 5 mm stone which has moved to the distal 1/3 of the right ureter. The stone is now at the pelvic inlet at the S2 level. Previously this stone was at the L4 level. The stone has moved approximately 9-10 cm distally compared to the previous exam. The hydronephrosis and hydroureter on the right may be slightly worse. There is persistent stranding of the right perinephric renal fat which is slightly worse. There is a 1.9 cm hypodensity in the lower pole of the right kidney which could be due to a renal cyst. There is a nonobstructing 3 mm stone in the upper pole of the left kidney with possible small left renal cyst. No evidence of appendicitis. No intestinal obstruction or free air. No pelvic mass or abnormal fluid collection. The bowel gas pattern is nonspecific. There are degenerative changes in the lumbar spine and hips. IMPRESSION: 1. Persistent right ureteral calculus measuring approximately 5 mm which is now in the region of the pelvic inlet and has moved distally approximately 9-10 cm compared to the previous exam with persistent right hydroureteronephrosis which may be slightly worse and persistent stranding of the right perinephric renal fat which may be slightly worse. 2. Other nonacute findings including left nephrolithiasis, bilateral renal cysts, and coronary artery calcifications. There is mild thickening of the esophagus distally which could be due to soft guidance and there is mild thickening of the pericardium which could be due to small effusion. Dictated by: Demetris Perez MD 09/05/2019 06:47 Electronically signed by Demetris Perez MD in [place] 09/05/2019 06:47
[2019-09-05 05:15] LABS: Basophils # 0.1 K/mm3 (0-0.2); Basophils % 0.5 % (0.1-2.0); Eosinophils # 0.4 K/mm3 (0.0-0.4); Eosinophils % 3.5 % (0.1-12.0); Hematocrit 38.3 % (42.0-52.0); Hemoglobin 12.8 g/dL (14.1-18.0); Lymphocytes # 1.3 K/mm3 (0.7-4.5); Lymphocytes % 10.7 % (10-50); Mean Corpuscular HGB Conc 33.5 g/dL (31.8-35.4); Mean Corpuscular Hemoglobin 29.7 pg (27.0-31.2); Mean Corpuscular Volume 88.6 fl (80-94); Mean Platelet Volume 8.7 fl (7.4-10.4); Monocytes # 0.5 K/mm3 (0.1-1.0); Monocytes % 4.4 % (1.7-9.3); Neutrophils # 9.7 K/mm3 (1.8-7.8); Neutrophils % 80.9 % (37.0-80.0); Platelet Count 271 K/mm3 (142-424); Red Blood Count 4.33 M/mm3 (4.60-6.20); Red Cell Distribution Width 14.7 % (11.5-17.5)
[2019-09-05 05:23] LABS: Bacteria,Urine Trace /lpf; WBC,Urine Occasional #/hpf (0-3)
[2019-09-05 05:29] LABS: Alanine Aminotransferase 27 U/L (12-78); Albumin Level 4.6 g/dl (3.5-5.0); Albumin/Globulin Ratio 1.4 (1.1-1.8); Alkaline Phosphatase 46 U/L (38-126); Anion Gap 10.6 mEq/L (5-15); Aspartate Amino Transferase 31 U/L (17-59); Bilirubin,Total 0.3 mg/dl (0.2-1.3); Blood Urea Nitrogen 25 mg/dl (9-20); Calcium 9.4 mg/dl (8.4-10.2); Carbon Dioxide 24 mmol/L (22.0-30.0); Chloride 105 mmol/L (98-107); Creatinine Clearance Estimated 44 mL/min (50-200); Estimated Glomerular Filt Rate 33 ml/min (>60); GFR (African American) 40 ML/MIN (>60); Globulin 3.3 g/dL (1.3-3.2); Glucose 180 mg/dl (74-100); Potassium 3.6 mmoL/L (3.5-5.1); Sodium 136 mmol/L (136-145); Total Protein,Serum 7.9 g/dl (6.3-8.2)
[2019-09-05 06:20] VITALS: BP 149/96; PULSE 61; RESP 16; O2SAT 98
--- NOTE | 2019-09-05 07:13 | HMH.EDGENADL ---
ED Disposition Clinical Impression: Renal colic on right side, Renal insufficiency Disposition: Home, Self-Care Condition on Discharge: Good Instructions: DI for Kidney Stones Additional Instructions: fluids and keep appt with urology Prescriptions: Hydrocod/Acet 5/325 mg [[place] 5/325mg tablet] 1 tab PO Q6HP PRN #8 tab PRN Reason: Moderate To Severe Pain Prescription Printed Referrals: Gavin Charles MD [Primary Care Provider] - Kenan Vargas MD [Staff Physician] - - Critical Care Critical Care Time: No Attestation: On 09/05/19, the high probability of a clinically significant, sudden or life threatening deterioration of the following system(s) required my full and direct attention, intervention and personal management. The time I documented below is in addition to time spent performing reported procedures but includes the following listed in this critical care notation. Medical Decision Making - Medical Records Medical records reviewed: Yes: I reviewed the patient's medical records. - Toi Inquiry Pt receiving controlled substance: No Vital Signs: 09/05/19 05:00 09/05/19 06:20 Temperature 97.8 F Temperature Source Oral Pulse Rate [Right] 57 L 61 Respiratory Rate 16 16 Blood Pressure [Right Arm] 152/99 H 149/96 H Blood Pressure Mean [Right Arm] 116 113 Blood Pressure Source [Right Arm] Automatic Cuff Blood Pressure Position [Right Arm] Sitting Sitting 02 Sat by Pulse Oximetry 99 98 Oxygen Delivery Method Room Air Room Air - Lab Data Lab results reviewed: Yes: I reviewed the patient's lab results. Lab Results 09/05/19 04:55: Urine Color Yellow, Urine Appearance Clear, Urine pH 6.5, Ur Specific [place] 1.020, Urine Protein 2+, Urine Glucose (UA) Negative, Urine Ketones Negative, Urine Blood 1+, Urine Nitrate Negative, Urine Bilirubin Negative, Urine Urobilinogen 0.2, Ur Leukocyte Esterase Negative, Urine RBC 3-5, Urine WBC Occasional, Urine Bacteria Trace 09/05/19 05:08: WBC 12.0 H D, RBC 4.33 L, Hgb 12.8 L, Hct 38.3 L, MCV 88.6, MCH 29.7, MCHC 33.5, RDW 14.7, Plt Count 271, MPV 8.7, Neut % (Auto) 80.9 H, Lymph % (Auto) 10.7, [place] % (Auto) 4.4, Eos % (Auto) 3.5, Baso % (Auto) 0.5, Neut # (Auto) 9.7 H, Lymph # (Auto) 1.3, Shannon # (Auto) 0.5, Eos # (Auto) 0.4, Baso # (Auto) 0.1 09/05/19 05:08: Sodium 136, Potassium 3.6, Chloride 105, Carbon Dioxide 24, Anion Gap 10.6, BUN 25 H D, Creatinine 2.00 H D, Estimated Creat Clear 44, Estimated GFR 33 L, Est GFR ( Amer) 40 L D, Glucose 180 H, Calcium 9.4, Total Bilirubin 0.3, AST 31, ALT 27 D, Alkaline Phosphatase 46, Total Protein 7.9, Albumin 4.6, Globulin 3.3 H, Albumin/Globulin Ratio 1.4 Result diagrams: 09/05/19 05:08 09/05/19 05:08 Orders (Tests/Meds): ED MEDICATIONS Generic Name Dose Route Start Last Admin Trade Name Freq PRN Reason Stop Dose Admin Sodium Chloride 1,000 mls @ 999 mls/hr 09/05/19 05:15 09/05/19 05:29 Sod Chlor 0.9% 1000ml Bag IV 09/05/19 06:15 999 mls/hr .Q1H1M CHERYL Administration Discontinued Medications Generic Name Dose Route Start Last Admin Trade Name Freq PRN Reason Stop Dose Admin Ketorolac Tromethamine 30 mg 09/05/19 05:07 09/05/19 05:29 Toradol 30mg/Ml Vial IV 09/05/19 05:08 30 mg ONCE ONE Administration Ondansetron HCl 4 mg 09/05/19 05:07 09/05/19 05:29 Zofran 4mg/2ml Vial IV 09/05/19 05:08 4 mg ONCE ONE Administration - CT Data CT Scan: Abdomen, Pelvis Time Received: 07:[address] Reviewed: Yes: I have viewed the radiologist's interpretation Preliminary Findings: Abnormal (renal stone) - Physician Consults Physician Consulted: dwight Reason -: Pt condition - Reevaluation(s) Time: 07:31 Reevaluation #1: improved Medical Decision Narrative: rt flank pain with hx of kidney stone General Adult HPI - General Chief complaint: PAIN Stated complaint: Possible Kidney Stone Time Seen by Provider: 09/05/19 05:30 Mode of Arrival: Ambulatory
[2019-09-05 07:44] VITALS: BP 162/93; PULSE 63; RESP 16; TEMP 36.6; O2SAT 97
== END 2019-09-05 07:46 | disposition home or self-care (01) ==
PROVIDERS: Emergency Provider Emergency Medicine; PCP Family Medicine
DX: N23 Unspecified renal colic (principal); N28.9 Disorder of kidney and ureter, unspecified; E03.9 Hypothyroidism, unspecified; E11.9 Type 2 diabetes mellitus without complications; E78.5 Hyperlipidemia, unspecified; I10 Essential (primary) hypertension; Z87.891 Personal history of nicotine dependence; Z79.899 Other long term (current) drug therapy; Z87.442 Personal history of urinary calculi
CPT/HCPCS: 74176; 80053; 81001; 85025; 96365; 96367; 96375; 99283; J2405

== ENCOUNTER 2019-09-07 12:24 | Day surgery (SDC) | payer MEDICARE, SELFPAY ==
[2019-09-06 12:17] VITALS: BMI 30.4
[2019-09-07] VITALS (12 sets, daily range): BP systolic 139–184; BP diastolic 68–96; PULSE 47–60; RESP 16–18; TEMP 36.1–43; O2SAT 93–97
[2019-09-07 14:25] LABS: POC Glucose,Bedside 125 (70-110)
--- NOTE | 2019-09-07 15:03 | HMH.ANESCL ---
[facility] Anesthesia Checklist - Patient Identification Patient Identification: Arm Band, Verbal (Name & ) - Structural Data Admitted From: Home Planned Operative Procedure/s: cystoscopy, right ureteroscopy, holmium laser Consent for Planned Operative Procedure(s) Verified: Yes Verified Documents: Surgical Consent, History and Physical - NPO Status Verified Time NPO: 20:00 - Chart Verification Results Verified: CBC, BMP - Additional verifications Fingerstick Blood Glucose: 125 Anesthesia Reactions: No Hx Blood Transfusions: No Blood Transfusion Reaction: No - Airway Assessment C-Spine Mobility Assessed: Yes TMJ Mobility Assessed: Yes Dentition: Poor Dentition (missing teeth) - Neurological Assessment Level of Consciousness: Awake, Alert, Appropriate, Follows Commands Hx Seizures: No Numbness or tingling in extremities: No - Anesthesia Plan Anesthesia Risk discussed: Yes Anesthesia Plan: Verified ASA Class: III Anesthesia Type: General (LMA) [facility] History I have reviewed the patient's past medical history: Yes Medical History: Reports:: BPH, Diabetes Mellitus Type 2, Hyperlipidemia, Hypertension, Kidney Stones, Renal Insufficiency Denies:: Atherosclerotic Heart Disease, Cancer, Congestive Heart Failure, Chronic Obstructive Pulmonary Disease (COPD), Diabetes Mellitus Type 1, Gall Bladder Disease, Internal Pacemaker, MRSA, Seizures *Have you ever received a pneumonia vaccine?: Yes *Have you received a flu vaccine this season?: Yes Other Medical History: Reports: Hypothyroidism, Other. Denies: Blood Transfusion Reaction Comment:: Gout Anesthesia experience/problems:: none Other Surgeries: Yes: Other. No: Pacemaker Amputation: No Fractures: No Comment: TURP - *Social History Educational Level: Completed College Smoking Status: Former smoker Alcohol Intake: current Alcohol Intake Frequency:: a few times a month Substance Use Type: denies use *Occupational Status:: retired Housing: house Household Members: spouse *Travel in the last 8 weeks: None Family Hx:: No significant family history
--- NOTE | 2019-09-07 15:45 | FL_ITS ---
PROCEDURE: FL URETHROCYSTOGRAM RETRO CLINICAL INDICATION: RT STONE EXTRACTION COMPARISON: No exams were available for comparison FINDINGS: Fluoroscopy time: 58 seconds Right ureteral stent is present. The distal aspect is curled in the region of the urinary bladder. IMPRESSION: Right ureteral stent placement under fluoro Dictated by: Demetris Perez MD 09/07/2019 17:38 Electronically signed by Demetris Perez MD in [place] 09/07/2019 17:38
--- NOTE | 2019-09-07 16:23 | HMH.ANESI ---
[facility] Anesthesia Record Part I Intake, IV Amount: 1,000 Estimated blood loss (mL): 0 Urine output (mL): 0 Blood Pressure: 139/68 SaO2: 93 Pulse Rate: 48 Respiratory Rate: 16 Temperature: 98.2 F Patient is:: Drowsy, Stable Stable to PACU at:: 16:15
[2019-09-07 16:32] LABS: POC Glucose,Bedside 108 (70-110)
--- NOTE | 2019-09-07 16:40 | HMH.OPNOTE ---
Date of procedure: 09/07/19 Pre-op Diagnosis:: 5 mm right ureteral stone Post-op Diagnosis:: 5 mm right ureteral stone, right ureteral stenosis, pendulous urethral stricture Procedure performed:: Right ureteroscopy, dilation of the right ureter, laser lithotripsy of ureteral stone, stone extraction, right ureteral stent placement, dilation of pendulous urethral stricture. Surgeon:: Kenan Vargas MD NUCLEAR MEDICINE TECH:: Quincy Melendez Anesthesia: GETA Estimated blood loss (mL): 5 Clinical Note:: 73-year-old white male with 5 mm right ureteral stone is because of persistent pain. His creatinine is now elevated and he wishes to proceed with stone extraction. Operative findings:: Patient with a appetite pendulous urethral stricture as well as right ureteral narrowing and dilation of the ureter caused impaction of the ureteral stone against the ureteral wall. Operative note:: Patient taken to the operating room after informed consent was obtained. He was placed on the operating table in the supine position. General anesthesia administered preoperative antibiotics given and sequential compression devices were placed. He was then placed into the dorsal lithotomy position and prepped and draped in the standard surgical fashion. A 21 [place] cystoscope then passed into the urethra but there was a a tight stricture noted in the pendulous urethra. A guidewire was passed through the stricture and we then dilated the stricture with the ureteral navigator sheath as we could not locate any urethral dilators. We then replaced the cystoscope and I was then able to navigate the scope by the stricture and into the bladder. Bladder was examined in a systematic fashion. There is no evidence of mucosal abnormalities stones diverticula or trabeculation. The ureteral orifices in their normal anatomic position. A guidewire was passed into the right ureteral orifice and it passed by the stone without difficulty. I then removed the cystoscope and passed our semirigid ureteroscope into the bladder and into the right ureter but about 2 cm above the ureteral orifice there was a narrow area that I could not navigate. I removed the ureteroscope and repassed the navigator ureteral sheath over the guidewire and into the right ureter. Then passed the ureteroscope through the sheath but the sheath was longer than the ureteroscope so the ureteroscope was removed and the ureteral sheath was removed and the ureteroscope then repassed into the right ureter and up to the level of the stone. The stone was noted to be impacted against the right lateral wall. I tempted to free it up from its position with a stone basket but it was stuck in there pretty good. I usedthe laser fiber and broke it up a bit to see if it would free it up and the 200 nm laser fiber was passed through the scope and the visible stone was fragmented. This resulted in pushing the stone deeper and so went ahead and broke up the stone in completion and the stone basket was used to remove it from the ureteral defect. All stone was removed. The pieces of stone were passed off for analysis. The ureteroscope removed and the cystoscope was replaced and a #6 x 26 [place] stent was passed over the guidewire and under fluoroscopy the guidewire and string removed. A good curl was noted proximally and distally. The cystoscope then removed and there was noted to be a little bleeding per urethra so I decided to place a Gautam catheter to tamponade the bleeding. A 16 [place] Gautam catheter passed without difficulty and anchored. Patient tolerated procedure well without complication. Condition: stable Disposition: PACU Specimens:: Ureteral stone Complications:: None
--- NOTE | 2019-09-07 17:00 | PC.NURSE ---
1629-fsbs checked with results of 108 1642-detailed report called to ROBBIE Waite 1645-pt transported to post op via stretcher with paola rails up and left in care of ROBBIE Waite with bed locked in lowest position, vss, pt stable
--- NOTE | 2019-09-07 17:41 | HMH.ANESII ---
[facility] Anesthesia Record Part II Discharge Time: 16:45 Destination: Surgical Day Care (OP Surgery) PACU nurse assessment reviewed?: Yes Patient Condition:: Good Anesthesia Complications:: None Swallowing reflex intact?: Yes Cyanosis?: No Blood Pressure: 155/75 Pulse Rate: 47 Temperature: 97.7 F Mental Status: Alert & Oriented Pain level:: 0 Nausea and/or vomitting:: None Intake, IV Amount: 0
[2019-09-21 17:26] LABS: Specimen Type URETER
[2019-09-21 17:27] LABS: Composition SEE BELOW:
[2019-09-21 17:28] LABS: Photo TO FOLLOW
== END 2019-09-07 17:31 | disposition home or self-care (01) ==
LOC: OR 12:26
PROVIDERS: PCP Family Medicine; Visit Provider Urology
PROC: (CPT 52352; principal; 2019-09-07 14:00)
DX: N20.1 Calculus of ureter (principal); Z79.84 Long term (current) use of oral hypoglycemic drugs; I10 Essential (primary) hypertension; E03.9 Hypothyroidism, unspecified; N35.919 Unspecified urethral stricture, male, unspecified site; Z87.442 Personal history of urinary calculi; E11.9 Type 2 diabetes mellitus without complications
CPT/HCPCS: 52356; 74450; 82370; 82962; 96374; C2617; J2405

== ENCOUNTER → 2019-09-13 10:14 | Outpatient (CLI) | payer MEDICARE, SELFPAY ==
--- NOTE | 2019-09-13 10:25 | XR_ITS ---
PROCEDURE: XR KUB CLINICAL INDICATION: ureteral stone COMPARISON: CT ABDOMEN PELVIS WO CON from 09/05/2019 FINDINGS: There is a right ureteral stent in place. No obvious ureteral calculus. IMPRESSION: Right ureteral stent present in good position. Dictated by: Demetris Perez MD 09/13/2019 11:28 Electronically signed by Demetris Perez MD in [place] 09/13/2019 11:28
== END ==
PROVIDERS: PCP Family Medicine; Visit Provider Urology
DX: N20.1 Calculus of ureter (principal)
CPT/HCPCS: 74018

== ENCOUNTER → 2019-09-18 10:00 | Outpatient (CLI) | payer MEDICARE, SELFPAY ==
[2019-09-19 16:10] LABS: Covid-19 Nasal PCR Sendout Lex NOT DETECTED
== END ==
PROVIDERS: Visit Provider Urology
DX: Z03.818 Encounter for observation for suspected exposure to other biological agents ruled out (principal); N20.0 Calculus of kidney
CPT/HCPCS: U0004

== ENCOUNTER 2019-09-20 08:43 | Day surgery (SDC) | payer MEDICARE, SELFPAY ==
--- NOTE | 2019-09-17 09:00 | SUR.PREOP ---
09/17/2019 @ 0900--PHONE CALL MADE TO PATIENT. PATIENT UNDERSTANDS THAT LAB WORK AND COVID TESTING NEEDS TO BE COMPLETED @ 945 ON 09/18/2019. PATIENT UNDERSTANDS IF LAB WORK AND COVID-19 TESTS ARE NOT COMPLETED BY 12PM ON THAT DATE, THE SURGERY SCHEDULED WILL BE CANCELLED AND RESCHEDULED FOR ANOTHER TIME.
[2019-09-19 08:40] VITALS: BMI 30.1
[2019-09-20 08:59] VITALS: BP 173/73; PULSE 60; RESP 16; TEMP 36.6; O2SAT 98
[2019-09-20 09:15] LABS: POC Glucose,Bedside 221 (70-110)
[2019-09-20 10:30] VITALS: BP 173/73; PULSE 60; RESP 16; TEMP 36.6; O2SAT 98
--- NOTE | 2019-09-20 12:46 | HMH.OPNOTE ---
Date of procedure: 09/20/19 Pre-op Diagnosis:: Patient with right ureteral stent status post recent stone extraction. Post-op Diagnosis:: Same Procedure performed:: Flexible cystoscopy with stent removal Surgeon:: Kenan Vargas MD Anesthesia: local Estimated blood loss (mL): 0 Clinical Note:: 73-year-old white male status post recent right ureteroscopy and stent placement presents for stent removal. Operative findings:: Previous urethral stricture resolved. Stent removed without complication. Operative note:: Patient taken to the treatment room after informed consent was obtained. On the stretcher he was prepped and draped in the standard surgical fashion and 2% lidocaine placed into the urethra and clamped for 5 minutes. The flexible cystoscope introduced into the urethral meatus and passed into the bladder without difficulty. The previously noted tight urethral stricture was wide open. Stent was noted from the right ureteral orifice. Flexible graspers passed through the scope and the stent grasped without difficulty. Stent then removed and patient tolerated procedure well. He is to return on an as-needed basis. Condition: stable Disposition: same day Specimens:: Right ureteral stent Complications:: None
== END 2019-09-20 10:40 | disposition home or self-care (01) ==
LOC: OUTP 08:45
PROVIDERS: PCP Family Medicine; Visit Provider Urology
PROC: (CPT 52310; principal; 2019-09-20 09:45)
DX: N20.0 Calculus of kidney (principal); E11.9 Type 2 diabetes mellitus without complications; E78.5 Hyperlipidemia, unspecified; N28.9 Disorder of kidney and ureter, unspecified; N40.0 Benign prostatic hyperplasia without lower urinary tract symptoms; E03.9 Hypothyroidism, unspecified; I10 Essential (primary) hypertension; Z79.82 Long term (current) use of aspirin; Z79.84 Long term (current) use of oral hypoglycemic drugs; Z79.899 Other long term (current) drug therapy
CPT/HCPCS: 52310; 82962

== ENCOUNTER → 2019-10-29 11:23 | Outpatient (CLI) | payer MEDICARE, SELFPAY ==
[2019-10-29 12:57] LABS: Blood Urea Nitrogen 24 mg/dl (9-20); Estimated Glomerular Filt Rate 46 ml/min (>60); GFR (African American) 55 ML/MIN (>60)
== END ==
PROVIDERS: Visit Provider Family Medicine
DX: Z01.818 Encounter for other preprocedural examination (principal)
CPT/HCPCS: 36415; 82565; 84520

== ENCOUNTER → 2019-11-02 09:25 | Outpatient (CLI) | payer MEDICARE, SELFPAY ==
--- NOTE | 2019-11-02 09:31 | CT_ITS ---
PROCEDURE: CT ABDOMEN PELVIS W CON CLINICAL INDICATION: RECURRENT PANCEATITIS Abdominal discomfort COMPARISON: CT ABDOMEN PELVIS WO CON from 09/05/2019 TECHNIQUE: IV Contrast: 75ML OPTIRAY 350 Oral Contrast 450ml Redicat Axial images obtained with sagittal and coronal reformats. All CT scans at the facility use one or more dose reduction, viz: automated exposure control, ma/kV adjustment per patient size (including targeted exams where dose is matched to indication, i.e. head), or iterative reconstruction technique. FINDINGS: LOWER THORAX: No acute finding ABDOMEN & PELVIS: Mild nonspecific thickening of the distal esophagus is noted. The liver, gallbladder, spleen, adrenal glands, pancreas, have an unremarkable appearance. Nonobstructing 4 mm stone is present in the upper pole of the left kidney. There are right renal cyst. There is an isodense nodule along the lower pole of the left kidney which is indeterminate possibly due to a cyst. Renal ultrasound may confirm cystic nature of these nodules.. No evidence of pancreatitis. No peripancreatic fluid collections are evident. There is mild nonspecific stranding of the perinephric fat on the right The no evidence of appendicitis. No intestinal obstruction or free air. Scattered colonic diverticula without diverticulitis. There are small bilateral inguinal hernias containing fat. There are degenerative changes of the spine and hips IMPRESSION: 1. No acute finding. No evidence of pancreatitis. 2. Left nephrolithiasis. 3. Bilateral renal cysts with indeterminate hypodensity lower pole left kidney. Renal ultrasound may confirm cystic or solid nature Dictated by: Demetris Perez MD 11/03/2019 10:11 Electronically signed by Demetris Perez MD in [place] 11/03/2019 10:11
== END ==
PROVIDERS: PCP Family Medicine; Visit Provider Family Medicine
DX: K85.90 Acute pancreatitis without necrosis or infection, unspecified (principal)
CPT/HCPCS: 74177; Q9967

== ENCOUNTER → 2019-12-04 10:49 | Outpatient (CLI) | payer MEDICARE, SELFPAY ==
--- NOTE | 2019-12-04 10:52 | US_ITS ---
PROCEDURE: US KIDNEY CLINICAL INDICATION: RENAL CYST Hypertension. COMPARISON: CT CT ABDOMEN PELVIS W CON from 11/02/2019 FINDINGS: The right kidney is 11 x 6 x 6 cm. There is a 2.3 cm cyst along the lower pole of the right kidney. There is some mild cortical thinning on the right. The left kidney is 12 x 6 cm. There is a 2 cm cyst along the lower pole and a 12 mm cyst in the mid to lower pole region. No hydronephrosis. There is an additional 1.4 cm and 1.1 cm cyst in the mid lower aspect of the left kidney. Mild cortical thinning noted IMPRESSION: No hydronephrosis. Bilateral renal cysts. Dictated b Demetris Perez MD 12/04/2019 16:37 Demetris Perez MD in [place] 12/04/2019 16:37
== END ==
PROVIDERS: PCP Family Medicine; Visit Provider Family Medicine
DX: N28.1 Cyst of kidney, acquired (principal)
CPT/HCPCS: 76770

== ENCOUNTER → 2019-12-20 08:55 | Outpatient (CLI) | payer MEDICARE, SELFPAY ==
[2019-12-20 10:03] LABS: Coronavirus 19 IgG Antibody Negative (Negative); Coronavirus 19 IgM Antibody Negative (Negative)
== END ==
PROVIDERS: Visit Provider Internal Medicine Gastroenterology
DX: Z03.818 Encounter for observation for suspected exposure to other biological agents ruled out (principal)
CPT/HCPCS: 36415; 86328

== ENCOUNTER 2019-12-21 07:25 | Day surgery (SDC) | payer MEDICARE, SELFPAY ==
[2019-12-17 11:48] VITALS: BMI 30.4
[2019-12-21] VITALS (7 sets, daily range): BP systolic 96–166; BP diastolic 53–92; PULSE 44–63; RESP 16–18; TEMP 36.1–36.4; O2SAT 95–98
[2019-12-21 07:57] LABS: POC Glucose,Bedside 199 (70-110)
--- NOTE | 2019-12-21 08:38 | HMH.PROC ---
[facility] Procedure Note Procedure Note:: Colonoscopy Procedure Report: Colonoscopy with cold snare polypectomy Endoscopist: Ayan Bennett II, MD Referring physician: Gavin Charles MD Date of Procedure: December 21, 2019 Equipment: Olympus 180 variable stiffness pediatric colonoscope Sedation: MAC sedation Indication: Mr. Weber is a 74-year-old gentleman who is here for screening colonoscopy. His last colonoscopy in 1992 was normal. He has had some intermittent bowel irregularity with occasional constipation and occasional bowel frequency. The caliber of his stools is variable and sometimes he has the feeling of incomplete bowel evacuation. He reports no abdominal pain, weight loss, rectal bleeding or family history of colon cancer. He did have some right lower quadrant abdominal pain fairly recently and had a CAT scan in August showing kidney stones/ureteral stone. His CAT scan on November 02, 2019 did show some colonic diverticulosis but no pancreatitis. His amylase was minimally elevated at that time and he had normal liver chemistries. An ultrasound of the abdomen was unremarkable except for a fatty liver. Procedure: Prior to the procedure, a history and physical exam was performed, and patient's medications and allergies were reviewed. The risks, benefits and alternatives of the sedation and procedure were discussed with the patient. All questions were answered and informed consent was obtained. The patient was brought to the procedure room. Patient identification and proposed procedure were verified by the physician and the nurse. The patient was placed in a left lateral decubitus position and the scope was passed under direct vision. Throughout the procedure, the patient's blood pressure, pulse, and oxygen saturations were monitored continuously. The colonoscopy was accomplished without difficulty. The patient tolerated the procedure well. Findings: On digital rectal examination there was normal rectal tone. There were no external hemorrhoids. The colonoscope was introduced through the anal canal to the rectum and advanced to the cecum. The ileocecal valve and appendiceal orifice were identified. The scope was advanced a short distance into the ileum which appeared grossly normal. The scope was then withdrawn into the colon. There were 6 colon polyps (ascending x2 (4 and 4 mm), transverse x1 (2 mm) and ascending x3 (3, 5 and 8 mm)) which were all removed via cold snare polypectomy. There were a few scattered diverticuli throughout the descending and sigmoid colon (LEFT colon). The rectum itself was normal. Upon retroflexion within the rectum there were grade 1-2 internal hemorrhoids. There was also angiodysplasias/telangiectasias in the distal rectum consistent with radiation proctitis. The preparation was excellent throughout with Yoder Preparation Score of 9. The cecal time was 12 minutes. Impression: 1. Colonic polyps x6 2. Left-sided diverticulosis 3. Mild radiation proctitis 4. Grade 1-2 internal hemorrhoids Plan: I will follow up the polyp pathology and recommend repeat colonoscopy again in 3-5 years based upon the polyp histology. I would encourage bulk fiber supplementation on a long-term daily maintenance basis.
--- NOTE | 2019-12-21 08:41 | P.PN_ITS ---
[facility] Anesthesia Checklist - Patient Identification Patient Identification: Arm Band - Structural Data Admitted From: Home Planned Operative Procedure/s: colonoscopy Consent for Planned Operative Procedure(s) Verified: Yes Verified Documents: Surgical Consent, History and Physical - NPO Status Verified Time NPO: 00:00 - Additional verifications Anesthesia Reactions: No Hx Blood Transfusions: No Blood Transfusion Reaction: No - Airway Assessment C-Spine Mobility Assessed: Yes (mp2) TMJ Mobility Assessed: Yes Dentition: Good Dentition - Neurological Assessment Level of Consciousness: Awake, Alert - Anesthesia Plan Anesthesia Risk discussed: Yes Anesthesia Plan: Verified ASA Class: III Anesthesia Type: MAC [facility] History I have reviewed the patient's past medical history: Yes Medical History: Reports:: BPH, Diabetes Mellitus Type 2, Hyperlipidemia, Hypertension, Kidney Stones, Renal Insufficiency Denies:: Atherosclerotic Heart Disease, Cancer, Congestive Heart Failure, Chronic Obstructive Pulmonary Disease (COPD), Diabetes Mellitus Type 1, Gall Bladder Disease, Internal Pacemaker, MRSA, Seizures *Have you ever received a pneumonia vaccine?: Yes *Have you received a flu vaccine this season?: Yes Other Medical History: Reports: Hypothyroidism, Other. Denies: Blood Transfusion Reaction Anesthesia experience/problems:: nac Other Surgeries: Yes: Other. No: Pacemaker Amputation: No Fractures: No - *Social History Last grade of school completed: Advanced degree Smoking Status: Never smoker Alcohol Intake: never Alcohol Intake Frequency:: holidays/special occasions only Substance Use Type: denies use *Occupational Status:: retired Housing: house Household Members: spouse *Travel in the last 8 weeks: None Family Hx:: Unable to obtain
== END 2019-12-21 10:07 | disposition home or self-care (01) ==
LOC: OUTP 07:26
PROVIDERS: PCP Family Medicine; Visit Provider Internal Medicine Gastroenterology
PROC: 0DJD8ZZ Inspection of Lower Intestinal Tract, Via Natural or Artificial Opening Endoscopic (ICD-10-PCS; CPT 45378; principal; 2019-12-21 09:00)
DX: Z12.11 Encounter for screening for malignant neoplasm of colon (principal); K63.5 Polyp of colon; K57.30 Diverticulosis of large intestine without perforation or abscess without bleeding; K64.0 First degree hemorrhoids; K62.7 Radiation proctitis; E11.9 Type 2 diabetes mellitus without complications; E78.5 Hyperlipidemia, unspecified; I10 Essential (primary) hypertension; N28.9 Disorder of kidney and ureter, unspecified; Z87.442 Personal history of urinary calculi; E03.9 Hypothyroidism, unspecified; Z79.899 Other long term (current) drug therapy
CPT/HCPCS: 45385; 82962; 88305

== ENCOUNTER → 2020-08-26 14:19 | Outpatient (POV) | payer MEDICARE, SELFPAY | PROVIDERS: Visit Provider Dermatology | DX: Z00.00 Encounter for general adult medical examination without abnormal findings (principal) ==

== ENCOUNTER 2021-10-28 09:47 | Emergency (ER) | payer MEDICARE, SELFPAY ==
[2021-10-28 09:50] VITALS: BP 165/97; PULSE 87; RESP 18; TEMP 36.3; O2SAT 98; BMI 28.9
--- NOTE | 2021-10-28 10:09 | HMH.EDUTC ---
[facility] Disposition Clinical Impression: Rash Disposition: Home, Self-Care Condition on Discharge: Good Instructions: DI for Rash, Prednisone Additional Instructions: Continue using prescribed cream as you was directed Take steriod as prescribed Return if needed Follow up with Dermatology as scheduled Straight to ER if any life threatening symptoms Prescriptions: predniSONE [Prednisone 20mg Tab] 20 mg PO BID 5 Days #10 tab Transmission Status: Pending to [id number] Referrals: Gavin Charles MD [Primary Care Provider] - As needed Time of Disposition: 10:25 Medical Decision Making - Toi Inquiry Pt receiving controlled substance: No Toi was queried for this patient: No Vital Signs: 10/28/21 09:50 Temperature 97.4 F L Temperature Source Temporal Artery Scan Pulse Rate [Left Brachial] 87 Respiratory Rate 18 Blood Pressure [Left Arm] 165/97 H Blood Pressure Mean [Left Arm] 119 Blood Pressure Source [Left Arm] Automatic Cuff Blood Pressure Position [Left Arm] Sitting 02 Sat by Pulse Oximetry 98 Oxygen Delivery Method Room Air Medical Decision Narrative: Patient states that he has taken prednisone in the past without complications or reactions [facility] HPI - General Stated complaint: rash Time Seen by Provider: 10/28/21 10:09 Mode of Arrival: Ambulatory Source of Information: Patient Limitations: No Limitations Description of Symptoms (Recalled from Triage Doc. by RN): PATIENT C/O RASH TO BILATERAL LEGS AND GROIN AREA X 1 WEEK HEENT Symptoms (Recalled from RN notes): No Resp Symptoms (Recalled from RN notes): No Skin Symptoms (Recalled from RN notes): Yes MS Symptoms (Recalled from RN notes): No Functional Status (Recalled from RN notes): WNL - History of Present Illness Provider Complaint: Patient state that he has had a rash in the past that they thought was fungal and his PCP give him some cream and oral steriods and it helped to clear it up States that he had a refill of the cream left and he got it filled 2 days ago but isnt helping much so he wanted to come in and get the steriods because they helped more with the itching than the cream States that he feels like it is starting to spread again - Related Data Home Medications Medication Instructions Recorded Confirmed Amlodipine Besylate [Amlodipine 10 mg PO DAILY 09/01/19 12/21/19 10mg Tab] Aspirin 81 mg PO DAILY 09/01/19 12/21/19 Atorvastatin Calcium [Lipitor 40mg 40 mg PO HS 09/01/19 12/21/19 Tab] Fenofibrate 160 mg PO DAILY 09/01/19 12/21/19 Levothyroxine Sodium 125 mcg PO DAILY 09/01/19 12/21/19 [Levothyroxine 125mcg (0.125mg) Tab] Losartan Potassium [Cozaar 100mg 100 mg PO DAILY 09/01/19 12/21/19 Tablets] Metformin HCl [Metformin 1000mg 1,000 mg PO BID 09/01/19 12/21/19 Tablets] Tamsulosin HCl 0.8 mg PO DAILY 09/01/19 12/21/19 allopurinoL [Allopurinol 100mg 200 mg PO DAILY 09/01/19 12/21/19 tablet] carvediloL [Carvedilol 25mg Tab] 25 mg PO BID 09/01/19 12/21/19 hydroCHLOROthiazide [HCTZ 25mg 12.5 mg PO DAILY 09/01/19 12/21/19 tab] Previous Rx's Medication Instructions Recorded predniSONE [Prednisone 20mg 20 mg PO BID 5 Days #10 tab 10/28/21 Tab] Allergies Allergy/AdvReac Type Severity Reaction Status Date / Time No Known Allergies Allergy Verified 12/21/19 07:44 - Worker's Comp Is this a Worker's Comp case?: No [facility] History - Hepatitis A Screen Attestation statement:: This patient has been screened for Hepatitis A risk factors. I have reviewed the patient's past medical history: Yes Medical History: Reports:: BPH, Diabetes Mellitus Type 2, Hyperlipidemia, Hypertension, Kidney Stones, Renal Insufficiency Denies:: Atherosclerotic Heart Disease, Cancer, Congestive Heart Failure, Chronic Obstructive Pulmonary Disease (COPD), Diabetes Mellitus Type 1, Gall Bladder Disease, Internal Pacemaker, MRSA, Seizures Other Medical History: Reports: Hypoth
[2021-10-28 10:27] VITALS: BP 165/97; PULSE 87; RESP 18; TEMP 36.3; O2SAT 98
== END 2021-10-28 10:30 | disposition home or self-care (01) ==
PROVIDERS: Emergency Provider Nurse Practitioner; PCP Family Medicine
DX: R21 Rash and other nonspecific skin eruption (principal)
CPT/HCPCS: 99212; G0463

== ENCOUNTER → 2021-11-03 08:15 | Outpatient (POV) | payer MEDICARE, SELFPAY | PROVIDERS: Visit Provider Dermatology | DX: Z00.00 Encounter for general adult medical examination without abnormal findings (principal) ==

== ENCOUNTER → 2021-12-24 10:24 | Outpatient (CLI) | payer MEDICARE, SELFPAY ==
--- NOTE | 2021-12-24 10:32 | ECG_ITS ---
APPROVED REPORT Exam: Resting ECG HR:93 bpm ECG Measurements Heart Rate 93 AXES QRSd 101 QRS 8 QT 343 T 128 QTc 394 Conclusion ATRIAL FIBRILLATION LOW QRS VOLTAGE IN PRECORDIAL LEADS with poor r wave progression - old finding ABNORMAL RHYTHM ECG UNCONFIRMED REPORT Electronically signed by : Aguila Cook MD 12/26/2021 08:08:40
== END ==
PROVIDERS: PCP Family Medicine; Visit Provider Family Medicine
DX: I49.9 Cardiac arrhythmia, unspecified (principal)
CPT/HCPCS: 93005

== ENCOUNTER 2021-12-26 19:28 | Emergency (ER) | payer MEDICARE, SELFPAY ==
[2021-12-26 19:43] VITALS: BP 0/0; PULSE 0; RESP 0; TEMP -17.7; TEMP 0
== END 2021-12-26 19:43 | disposition left against medical advice (07) ==
LOC: UTC 19:33
PROVIDERS: Emergency Provider Physician Assistant; PCP Family Medicine
DX: Z53.21 Procedure and treatment not carried out due to patient leaving prior to being seen by health care provider (principal)

== ENCOUNTER → 2022-01-12 11:31 | Outpatient (CLI) | payer MEDICARE, SELFPAY ==
--- NOTE | 2022-01-12 11:31 | NM_ITS ---
APPROVED REPORT Exam: Nuclear Stress Test Indication: Palpitations, Afib, HTN, DM, High cholesterol Patient Location: Outpatient Stress Tech: Cassandra Cao AL Tech:Elizabeth Norris, ARRT, RT (R)(N) Ht: 5 ft 10 in Wt: 190 lbs HR: 54 bpm BP: 126/79 mmHg BSA: 2.04 m2 TID: 1.17 BMI: 27.2 History: Palpitations, Afib, HTN, DM, High cholesterol Procedure: Patient received a 0.4 mg of intravenous Lexiscan, resting heart rate 54 bpm, resting blood pressure 126/79 mmHg, with Lexiscan maximum heart rate achived was 80 bpm which is Less than 85 % of the maximum predicted heart rate and blood pressure was 126/79 mmHg. With Lexiscan, patient denied any complaint of chest pain. Electrocardiogram Resting electrocardiogram shows A. fib, with Lexiscan there is less than 1.[address] segment depression noted from the baseline EKG. The EKG portion of the Lexiscan is nondiagnostic. Cardiac Stress and Resting SPECT Images: Cardiac Stress and Resting SPECT images were obtained using technetium 99m Myoview 31.9 mCi stress and 10.88 mCi at rest. Gated SPECT for analysis of segmental wall motion and calculation of the ejection fraction also done. Prone images were also obtained. Cardiac stress and rest SPECT may show uniform myocardial activity without segmental perfusion abnormality, computer derived ejection fraction is 55% with no regional wall motion abnormality, right ventricle is normal size and contractility. Conclusion: 1. The EKG portion of the Lexiscan is nondiagnostic. 2. No scintigraphic evidence of reversible ischemia seen, computer derived ejection fraction is 55% with no regional wall motion abnormality, right ventricle is normal size and contractility. 3. Normal Lexiscan Myoview study. Electronically signed by : Taurus Frausto MD 01/13/2022 05:55:59
--- NOTE | 2022-01-12 13:09 | HMH.ITSHM ---
Current Home Medications as stated by this patient Bay Weber or retail representative. []TAMSULOSIN RIVAROXABAN METFORMIN LOSARTAN LEVOTHYROXINE DILTIAZEM DAPAGLIFLOZIN VITAMIN D3 CARVEDILOL ATORVASTATIN ALLOPURINOL
--- NOTE | 2022-01-12 13:25 | CA_ITS ---
APPROVED REPORT EXAM: Comprehensive 2D, Doppler, and color-flow Echocardiogram Buyer Assistant: Whitney Oconnell RT(R) Ht: 5 ft 10 in Wt: 190lbs BSA: 2.04 BP: 141/97 mmHg Indications: new AFIB, CP, HTN, hyperlipidemia, ABN EKG 2D Dimensions LVOT 1.77 cm (M/F) 1.5-2.5 LVEF (Denson's) 50.30 % LV Volume 73.60 mL LA Volume 77.60 mL LA Volume Index 38.00 mL/m2 (M/F) 16-34 M-Mode Dimensions RVDd 2.07 cm (0.9-2.6) LA Diam 4.05 cm (1.9-4.0) LVDd 3.89 cm (3.5-5.7) Ao Diam 3.02 cm (2.0-3.7) LVDs 2.16 cm (3.5-5.7) IVSd 1.10 cm (0.6-1.1) PWd 1.18 cm (0.6-1.1) EF (Teich) 76.30% FS 44.50% EDV (Teich) 65.50 mL ESV (Teich) 15.50 mL Tricuspid Valve TR P. Velocity 262.00 cm/s RAP Estimate 10.00 mmHg RVSP 37.50 mmHg Left Ventricle Left atrium is mildly enlarged, left ventricle is normal size mild concentric left ventricular hypertrophy, estimated ejection fraction 55% with no regional wall motion abnormality, diastolic parameters are inconclusive. Right Ventricle Right atrium and right ventricle are normal size and contractility. Aortic Valve Aortic valve is minimally thickened and fibrosed there is no aortic stenosis or aortic insufficiency. Mitral Valve Mitral valve grossly normal, there is trace mitral regurgitation. Tricuspid Valve Tricuspid valve is grossly normal, there is trace tricuspid regurgitation, tricuspid regurgitation jet velocity is inadequate for calculation of the right ventricular systolic pressure. Pulmonic Valve Pulmonic valve is poorly visualized. Great Vessels Aortic root is normal size. Inferior vena cava is poorly visualized. Pericardium No significant pericardial effusion. Conclusion 1. Mildly enlarged left atrium, normal left ventricular size, mild concentric left ventricular hypertrophy, estimated ejection fraction 55% with no regional wall motion abnormality, diastolic parameters are inconclusive. 2. Trace mitral and tricuspid regurgitation. 3. No significant pericardial effusion. 4. Inferior vena cava is poorly visualized. Electronically signed by : Taurus Frausto MD 01/13/2022 05:28:08
--- NOTE | 2022-01-12 13:31 | CA_ITS ---
APPROVED REPORT Exam: Pharmacologic Technologist: Cassandra Mcpherson, Ht: 5 ft 10 in Wt: 194 lbs BSA: 2.06 m2 HR: 54 bpm BP: 126/79 mmHg Medical History Medications: Levothyroxine,,,,, Metformin,,,,, Vitamin D3,,,,, Losartan,,,,, Allopurinol,,,,, Atorvastatin,,,,, Carvedilol,,,,, Farxiga,,,,, XaRELTO,,,,, TAMSULOSIN,,,,, FeNOfibrate,,,,, DilTiazem,,,,, Stress Test Details Test: LEXISCAN Reason for pharmacologic stress test: physical limitation. HR Resting HR: 54 bpm Max Heart Rate (APMHR): 143.539391 bpm Max HR Achieved: 80 bpm Target HR (85% APMHR): 121.285238 bpm % of APMHR: 55.94 Recovery HR: 58 bpm BP Resting BP: 126/79 mmHg Max BP: 126/79 mmHg Recovery BP: 106.0/63.0 mmHg ECG Resting ECG: Afib with slow vent. response, poor R wave progression, low voltage QRS Clinical Exercise duration: 04:03 min Highest Stage Achieved: Exercise capacity: 1.0 METs Stress ECG Conclusion Symptoms: mild SOA, stomach discomfort. Malaise, mildly lightheaded. No CP. Arrhythmias/Ectopy: Afib throughout. ST-T Changes: No significant changes. Conclusion: Mild hypotension, otherwise unremarkable Lexiscan stress. Myoview images reported separately. Test Summary REST . . . . . . . Resting REST 03:31 . . 54 . 126/ 79 . . Stage 1 01:00 . . 76 . . . . Stage 2 01:00 . . 65 . 111/ 71 . . Stage 3 01:00 . . 63 . 105/ 68 . . Stage 4 01:00 . . 57 . 101/ 60 . . Stage 4 01:03 . . 48 . 101/ 60 . Stop exercise at 04:03 RECOVERY 01:00 . . 47 . 103/ 63 . . RECOVERY 02:00 . . 59 . 97/ 65 . . RECOVERY 03:00 . . 59 . 97/ 65 . . RECOVERY 04:00 . . 57 . 106/ 60 . . RECOVERY 05:00 . . 53 . 102/ 56 . . RECOVERY 06:00 . . 63 . 102/ 56 . . RECOVERY 07:00 . . 60 . 108/ 61 . . RECOVERY 08:00 . . 59 . 108/ 61 . . RECOVERY 09:00 . . 64 . 117/ 58 . . RECOVERY 10:00 . . 57 . 117/ 58 . . RECOVERY 11:00 . . 49 . 106/ 59 . . RECOVERY 12:00 . . 63 . 106/ 63 . . RECOVERY 12:35 . . 53 . 106/ 63 . . Electronically signed by : Taurus Frausto MD 01/13/2022 05:53:23
== END ==
PROVIDERS: PCP Family Medicine; Visit Provider Nurse Practitioner Family
DX: E78.5 Hyperlipidemia, unspecified (principal); I10 Essential (primary) hypertension; I48.91 Unspecified atrial fibrillation; N28.9 Disorder of kidney and ureter, unspecified; R07.9 Chest pain, unspecified
CPT/HCPCS: 78452; 93017; 93306; A9502; J2785

== ENCOUNTER → 2022-06-22 12:38 | Outpatient (CLI) | payer MEDICARE, SELFPAY ==
[2022-06-22 13:18] LABS: Basophils # 0.1 K/mm3 (0-0.2); Eosinophils # 0.3 K/mm3 (0.0-0.4); Eosinophils % 3.4 % (0.1-12.0); Hematocrit 41.2 % (42.0-52.0); Hemoglobin 13.3 g/dL (14.1-18.0); Lymphocytes # 1.5 K/mm3 (0.7-4.5); Lymphocytes % 14.5 % (10-50); Mean Corpuscular HGB Conc 32.3 g/dL (31.8-35.4); Mean Corpuscular Hemoglobin 28.9 pg (27.0-31.2); Mean Corpuscular Volume 89.2 fl (80-94); Mean Platelet Volume 8.8 fl (7.4-10.4); Monocytes # 0.6 K/mm3 (0.1-1.0); Monocytes % 5.9 % (1.7-9.3); Neutrophils # 7.6 K/mm3 (1.8-7.8); Neutrophils % 75.2 % (37.0-80.0); Platelet Count 329 K/mm3 (142-424); Red Blood Count 4.62 M/mm3 (4.60-6.20); Red Cell Distribution Width 15.7 % (11.5-17.5); White Blood Count 10.1 K/mm3 (4.8-10.8)
[2022-06-22 13:56] LABS: Chloride 107 mmol/L (98-107); Potassium 4.6 mmoL/L (3.5-5.1); Sodium 140 mmol/L (136-145)
[2022-06-22 13:59] LABS: Anion Gap 10.6 mEq/L (5-15); Blood Urea Nitrogen 38 mg/dl (9-20); Calcium 9.2 mg/dl (8.4-10.2); Carbon Dioxide 27 mmol/L (22.0-30.0); Estimated Glomerular Filt Rate 31 ml/min (>60); GFR (African American) 37 ML/MIN (>60); Glucose 94 mg/dl (74-100)
== END ==
PROVIDERS: PCP Family Medicine; Visit Provider Internal Medicine
DX: E78.5 Hyperlipidemia, unspecified (principal); I10 Essential (primary) hypertension; I48.91 Unspecified atrial fibrillation; R42 Dizziness and giddiness; R53.83 Other fatigue; R94.31 Abnormal electrocardiogram [ECG] [EKG]; Z87.891 Personal history of nicotine dependence
CPT/HCPCS: 36415; 80048; 85025

== ENCOUNTER → 2022-06-23 07:36 | Outpatient (CLI) | payer MEDICARE, SELFPAY ==
--- NOTE | 2022-06-23 07:37 | CA_ITS ---
FINAL REPORT TECHNIQUE: Grayscale, color Doppler and duplex Doppler ultrasound of the kidneys, aorta and renal arteries was performed. Multiple velocities were measured. CLINICAL HISTORY: HTN,DM,HX KIDNEY STONES,HLD FINDINGS: Aorta velocity: 65.8 cm/sec Right kidney: 11.7 cm. There is a 2 cm right renal cyst. There is no evidence of hydronephrosis. Right intrarenal RI: 0.55 Right renal artery velocity: 98 cm/sec. Right RAR (Renal artery-Aortic Ratio): 1.5 Left Kidney: 12.2 cm. There are 2 left renal cysts, each measuring 2.1 cm. There is no evidence of hydronephrosis. Left intrarenal RI: 0.62 Left renal artery velocity: 90 cm/sec. Left RAR (Renal Artery-Aortic Ratio): 1.4 IMPRESSION: No evidence of significant renal artery stenosis. Bilateral renal cysts. CT angiogram or postcontrast MR angiogram would be more sensitive for evaluation of possible renal artery stenosis. Reviewed, Interpreted and Dictated by Bay Enamorado III, MD Transcribed by Elizabeth Cabrera Authenticated and [facility]
== END ==
PROVIDERS: PCP Family Medicine; Visit Provider Internal Medicine
DX: E78.5 Hyperlipidemia, unspecified (principal); I10 Essential (primary) hypertension; I48.91 Unspecified atrial fibrillation; R94.31 Abnormal electrocardiogram [ECG] [EKG]; Z87.891 Personal history of nicotine dependence
CPT/HCPCS: 93976

== ENCOUNTER → 2022-07-06 09:03 | Outpatient (CLI) | payer MEDICARE, SELFPAY ==
[2022-07-06 10:06] LABS: Chloride 107 mmol/L (98-107); Sodium 140 mmol/L (136-145)
[2022-07-06 10:07] LABS: Potassium 4.7 mmoL/L (3.5-5.1)
[2022-07-06 10:09] LABS: Anion Gap 10.7 mEq/L (5-15); Blood Urea Nitrogen 33 mg/dl (9-20); Carbon Dioxide 27 mmol/L (22.0-30.0); Estimated Glomerular Filt Rate 39 ml/min (>60); GFR (African American) 48 ML/MIN (>60)
[2022-07-06 10:10] LABS: Calcium 8.6 mg/dl (8.4-10.2); Glucose 131 mg/dl (74-100)
== END ==
PROVIDERS: PCP Family Medicine; Visit Provider Internal Medicine
DX: E78.5 Hyperlipidemia, unspecified (principal); I10 Essential (primary) hypertension; I48.91 Unspecified atrial fibrillation; R53.83 Other fatigue; R94.31 Abnormal electrocardiogram [ECG] [EKG]; Z87.891 Personal history of nicotine dependence
CPT/HCPCS: 36415; 80048

== ENCOUNTER 2022-07-10 02:43 | Observation (INO) | payer MEDICARE, SELFPAY ==
[2022-07-10] VITALS (17 sets, daily range): BP systolic 117–177; BP diastolic 65–108; PULSE 70–110; RESP 16–19; TEMP 36.7–37.2; O2SAT 95–98; BMI 29.5
--- NOTE | 2022-07-10 03:10 | CT_ITS ---
PROCEDURE INFORMATION: Exam: CT Head Without Contrast Exam date and time: 07/10/2022 3:27 AM Age: 76 years old Clinical indication: Other: Confusion TECHNIQUE: Imaging protocol: Computed tomography of the head without contrast. Radiation optimization: All CT scans at this facility use at least one of these dose optimization techniques: automated exposure control; mA and/or kV adjustment per patient size (includes targeted exams where dose is matched to clinical indication); or iterative reconstruction. REPORTING DATA: Count of CT and Cardiac NM exams in prior 12 months: This patient has received [address] and 0 known cardiac nuclear medicine studies in the 12 months prior to the current study. COMPARISON: No relevant prior studies available. FINDINGS: Brain: Moderate atrophy. No intracranial hemorrhage. No mass. Few scattered foci of decreased attenuation within periventricular/subcortical white matter. No definite edema. Cerebral ventricles: No hydrocephalus. Paranasal sinuses: Scattered minimal mucosal thickening. Few retention cysts. Mastoid air cells: No significant effusion. Orbital cavities: Unremarkable as visualized. Bones/joints: No acute fracture. Soft tissues: Unremarkable. Vasculature: Mild atherosclerotic disease of intracranial arteries. IMPRESSION: Probable chronic microvascular ischemic changes. If symptoms persist, consider MRI.
--- NOTE | 2022-07-10 03:10 | CT_ITS ---
PROCEDURE INFORMATION: Exam: CT Abdomen And Pelvis Without Contrast Exam date and time: 07/10/2022 3:30 AM Age: 76 years old Clinical indication: Abdominal pain; Additional info: Confusion, abd pain, bloating TECHNIQUE: Imaging protocol: Computed tomography of the abdomen and pelvis without contrast. Radiation optimization: All CT scans at this facility use at least one of these dose optimization techniques: automated exposure control; mA and/or kV adjustment per patient size (includes targeted exams where dose is matched to clinical indication); or iterative reconstruction. REPORTING DATA: Count of CT and Cardiac NM exams in prior 12 months: This patient has received [address] and 0 known cardiac nuclear medicine studies in the 12 months prior to the current study. COMPARISON: CT ABDOMEN PELVIS W CON 11/02/2019 9:49 AM FINDINGS: Lungs: Bibasilar bronchial wall thickening. Pleural spaces: Trace bilateral pleural effusions. Heart: Normal heart size. Mild pericardial thickening. Liver: Normal configuration. Homogeneous parenchyma. Gallbladder and bile ducts: Calcified gallstones are noted. Equivocal gallbladder wall thickening. No biliary tree dilation. Pancreas: Normal. No ductal dilation. Spleen: Normal. No splenomegaly. Adrenal glands: Normal configuration. Kidneys and ureters: No evidence of renal obstruction. Intrarenal stones are noted bilaterally. Stomach and bowel: Unremarkable. No obstruction. No mural thickening. Appendix: Normal appendix is confirmed. Intraperitoneal space: No free air. No significant fluid collection. Vasculature: Mild arterial calcification. No portal venous gas. Lymph nodes: No enlarged lymph nodes. Urinary bladder: Unremarkable as visualized. Reproductive: Physiologic appearance for age. Bones/joints: No fracture or destructive lesion. Soft tissues: Unremarkable. IMPRESSION: Gallstones are noted. Equivocal gallbladder wall thickening. Ultrasound may be helpful for further evaluation. Otherwise, no acute abnormality in the abdomen or pelvis. There are intrarenal stones noted but no evidence of renal obstruction.
--- NOTE | 2022-07-10 03:12 | XR_ITS ---
PROCEDURE INFORMATION: Exam: XR Chest Exam date and time: 07/10/2022 3:13 AM Age: 76 years old Clinical indication: Shortness of breath; Additional info: SOB TECHNIQUE: Imaging protocol: Radiologic exam of the chest. Views: 2 views. COMPARISON: CT ABDOMEN PELVIS W CON 11/02/2019 9:49 AM FINDINGS: Lungs: Hyperinflated lungs. Reticular opacities are noted throughout both lungs. Pleural spaces: Trace bilateral pleural effusions. Mild pleural thickening. Heart/Mediastinum: Prominent left atrium with borderline cardiac enlargement. Bones/joints: Age appropriate. IMPRESSION: Exam demonstrates features of mild early heart failure superimposed upon hyperinflated lungs.
--- NOTE | 2022-07-10 03:14 | HMH.EDGENADL ---
Discharge Plan Disposition Patient Disposition: Admitted as Observation Condition: Fair Clinical Impressions Clinical Impression: Acute cholecystitis, Bilateral pleural effusion, Hypertensive urgency, Chronic atrial fibrillation, Mild congestive heart failure Discharge ED Provider: Ifrah Ovalles Adult HPI General Chief complaint: Abdominal Pain Stated complaint: Stomach pain with nausea Time Seen by Provider: 07/10/22 03:01 Mode of Arrival: Ambulatory Source of Information: Patient Limitations: No Limitations Description of Symptoms (Recalled from ER Triage Doc. by RN): pt arrives via private vehicle. C/o abdominal fullness. States its been going on for 4 days. Says he can feel something gurgling in his stomach. Reports that he has been having bowel movements daily but now they seem smaller than normal. Also complains of chills for the last two days History of Present Illness HPI narrative: Patient is 76yo white male who is here for multiple complaints. Patient's said that he has been having his abdominal bloating constipation last bowel bowel movement 2 days ago. His belly feels crampy and easy and he is nauseated. He is also been having some confusion sleeping a lot but no slurred speech, focal weakness. Patient said he is also had some chills tonight but it was not cold in the house. He has no urinary symptoms no rashes anywhere. He feels like his his heart is out of rhythm again he has a history of paroxysmal atrial fib. But he is not having chest pain he is short of breath and is anxious. He has no upper respiratory symptoms. His stated that he has had some of the symptoms for the past couple of days and before however since he said he was not feeling good at 3:00 in the morning he was not really feeling good and when he asked to come to the hospital. Onset (ago): day(s) Location: chest and abdomen Radiation: non-radiation Severity scale (1-10): 4 Quality: sharp Consistency: constant Relieving factors: none Exacerbating factors: none Associated symptoms: confusion, fever/chills, loss of appetite, malaise, nausea/vomiting, shortness of breath, weakness and other (Abdominal cramping constipation and last bowel movement 2 days ago.) Treatments prior to arrival: none Related Data Home Medications Medication Instructions Recorded Confirmed allopurinol 100 mg tablet 200 mg PO DAILY gout 09/01/19 07/10/22 atorvastatin 40 mg tablet 40 mg PO HS Cholesterol 05/02/20 03/11/23 fenofibrate 160 mg tablet 160 mg PO DAILY Cholesterol 09/01/19 07/10/22 levothyroxine 125 mcg tablet 125 mcg PO DAILY thyroid 09/01/19 07/10/22 metformin 1,000 mg tablet 1,000 mg PO BID Diabetes 09/01/19 07/10/22 cholecalciferol (vitamin D3) 1,250 1,250 mcg PO WEEKLY Supplement 01/06/22 07/10/22 mcg (50,000 unit) capsule dapagliflozin 10 mg tablet 10 mg PO DAILY Diabetes 01/06/22 07/10/22 (Farxiga) diltiazem HCl 240 mg 240 mg PO DAILY a fib 01/06/22 07/10/22 capsule,extended release 24 hr rivaroxaban 15 mg tablet (Xarelto) 15 mg PO DAILY Blood thinner 01/06/22 07/10/22 tamsulosin 0.4 mg capsule 0.4 mg PO DAILY BPH 01/06/22 07/10/22 irbesartan 300 mg tablet 300 mg PO DAILY High blood pressure 06/22/22 07/10/22 metoprolol tartrate 50 mg tablet 150 mg PO BID heart rate 07/10/22 07/10/22 minoxidil 2.5 mg tablet 5 mg PO DAILY High blood pressure 07/10/22 07/10/22 psyllium 1 packet PO TID constipation 07/10/22 07/10/22 Allergies Allergy/AdvReac Type Severity Reaction Status Date / Time No Known Allergies Allergy Verified 07/07/22 13:08 [facility] Disclaimer: The information contained in this section may have been updated after the patient was seen, as this information can be updated by other users. Medical History Abnormal electrocardiogram [ECG] [EKG] Atrial fibrillation Calculus of kidney Dizziness Fatigue Former smoker Hyperlipidemia Hypertension New onset a-fib Pa
[2022-07-10 03:16] LABS: Microscopic, Urine URINE MICROSCOPIC (MICROSCOPIC)
--- NOTE | 2022-07-10 03:16 | ECG_ITS ---
APPROVED REPORT Exam: Resting ECG HR:93 bpm ECG Measurements Heart Rate 93 AXES QRSd 91 QRS -1 QT 341 T 114 QTc 391 Conclusion ATRIAL FIBRILLATION LOW QRS VOLTAGE IN EXTREMITY LEADS [QRS DEFLECTION < 0.5 mV IN LIMB LEADS] ABNORMAL QRS-T ANGLE [QRS-T AXIS DIFFERENCE > 60] ABNORMAL ECG UNCONFIRMED REPORT Electronically signed by : Aguila Cook MD 07/10/2022 08:24:42
[2022-07-10 03:18] LABS: Appearance,Urine CLEAR (Clear); Bilirubin,Urine Negative (Negative); Blood, Urine Negative (Negative); Color,Urine YELLOW (Yellow); Glucose,Urine (UA) 3+ (Negative); Ketones,Urine Negative (Negative); Leukocyte Esterase,Urine Negative (Negative); Nitrate,Urine Negative (Negative); PH,Urine 5.5 (5.0-8.5); Protein,Urine 2+ (Negative); Urobilinogen,Urine 0.2 EU/dl (0.2)
[2022-07-10 03:21] LABS: Basophils # 0.1 K/mm3 (0-0.2); Basophils % 0.4 % (0.1-2.0); Eosinophils # 0.2 K/mm3 (0.0-0.4); Eosinophils % 1.9 % (0.1-12.0); Hematocrit 38.6 % (42.0-52.0); Hemoglobin 12.5 g/dL (14.1-18.0); Lymphocytes # 1.3 K/mm3 (0.7-4.5); Mean Corpuscular HGB Conc 32.3 g/dL (31.8-35.4); Mean Corpuscular Volume 89.9 fl (80-94); Mean Platelet Volume 8.9 fl (7.4-10.4); Monocytes # 0.6 K/mm3 (0.1-1.0); Monocytes % 5.8 % (1.7-9.3); Neutrophils # 8.8 K/mm3 (1.8-7.8); Platelet Count 300 K/mm3 (142-424); Red Blood Count 4.29 M/mm3 (4.60-6.20); Red Cell Distribution Width 15.9 % (11.5-17.5)
[2022-07-10 03:23] LABS: Chloride 108 mmol/L (98-107); Potassium 4.3 mmoL/L (3.5-5.1); Sodium 139 mmol/L (136-145)
[2022-07-10 03:26] LABS: Alanine Aminotransferase 26 U/L (12-78); Alkaline Phosphatase 35 U/L (38-126); Anion Gap 12.3 mEq/L (5-15); Aspartate Amino Transferase 24 U/L (17-59); Bilirubin,Total 0.7 mg/dl (0.2-1.3); Blood Urea Nitrogen 30 mg/dl (9-20); Calcium 8.8 mg/dl (8.4-10.2); Carbon Dioxide 23 mmol/L (22.0-30.0); Creatine Kinase 39 U/L (55-170); Creatinine Clearance Estimated 50 mL/min (50-200); Estimated Glomerular Filt Rate 42 ml/min (>60); GFR (African American) 51 ML/MIN (>60); Glucose 131 mg/dl (74-100); Lipase 158 U/L (23-300)
[2022-07-10 03:27] LABS: Bacteria,Urine Trace /lpf
[2022-07-10 03:27] LABS: Albumin/Globulin Ratio 1.3 (1.1-1.8)
[2022-07-10 03:28] LABS: Activated Partial Thrombo Time 52.8 seconds (22.8-30.6); INR 1.36 (0.9-1.1); Lactic Acid 0.8 mmol/L (0.7-2.1); Prothrombin Time 14.4 seconds (10.1-12.5)
[2022-07-10 03:31] LABS: Ammonia 11 umol/L (9-30)
[2022-07-10 03:36] LABS: CKMB Relative Index 1.5 U/L (0-4.0); Creatine Kinase MB 0.6 ng/ml (0.0-2.03)
[2022-07-10 03:39] LABS: Troponin I 0.01 ng/ml (0.00-0.034)
[2022-07-10 03:46] LABS: Procalcitonin 0.101 ng/mL (0.0-2.0)
--- NOTE | 2022-07-10 04:14 | PC.NURSE ---
paged Dr. Moreno at this time
--- NOTE | 2022-07-10 04:17 | PC.NURSE ---
paged Dr. Lloyd, on-call for Dr. Charles.
--- NOTE | 2022-07-10 04:17 | PC.NURSE ---
HELEN ESPINAL speaking with Dr. Moreno
[2022-07-10 04:38] LABS: NT Pro Brain Natriuretic Pep. 6570 pg/mL (0-450)
--- NOTE | 2022-07-10 04:39 | CT_ITS ---
PROCEDURE INFORMATION: Exam: CT Chest Without Contrast; Diagnostic Exam date and time: 07/10/2022 4:46 AM Age: 76 years old Clinical indication: Abnormal findings; Abnormal radiologic exam of lung or chest; Additional info: Pleural effusion TECHNIQUE: Imaging protocol: Diagnostic computed tomography of the chest without contrast. Radiation optimization: All CT scans at this facility use at least one of these dose optimization techniques: automated exposure control; mA and/or kV adjustment per patient size (includes targeted exams where dose is matched to clinical indication); or iterative reconstruction. REPORTING DATA: Count of CT and Cardiac NM exams in prior 12 months: This patient has received 2 known CTs and 0 known cardiac nuclear medicine studies in the 12 months prior to the current study. COMPARISON: CR XR CHEST 2V 07/10/2022 3:13 AM FINDINGS: Lungs: Unremarkable. No consolidation. No masses. Pleural spaces: Mild bilateral pleural effusions. Heart: There is calcification of the aortic valve annulus. There is calcification of the mitral valve annulus. Small pericardial effusion Coronary arteries: Coronary artery calcifications may indicate coronary artery disease. Lymph nodes: Pathologic node in the post caval/pretracheal region 2.7 x 2 cm. Pathologic node in the preaortic region 17 x 15 mm. Pathologic node adjacent to the ascending aorta 18 x 14 mm . Vasculature: Unremarkable. No aortic aneurysm. Bones/joints: Unremarkable. No acute fracture. Soft tissues: Unremarkable. IMPRESSION: 1. Pathologic node in the post caval/pretracheal region 2.7 x 2 cm. Pathologic node in the preaortic region 17 x 15 mm. Pathologic node adjacent to the ascending aorta 18 x 14 mm . 2. Mild bilateral pleural effusions.
[2022-07-10 05:01] LABS: Coronavirus 19, PCR Not Detected (NotDetected); Influenza A, PCR Not Detected (NotDetected); Influenza B, PCR Not Detected (NotDetected)
--- NOTE | 2022-07-10 05:13 | PC.NURSE ---
at 0505 received phone report Junior RN/ED NURSE. PATIENT BEING ADMITTED WITH CHOLECYSTITIS/ABD CRAMPING-BLOATING. HAS HAD FOR A FEW DAYS BUT GOT WORSE YESTERDAY.
--- NOTE | 2022-07-10 05:29 | PC.NURSE ---
ARRIVED TO THE FLOOR AT 0530 VIA W/C.
[2022-07-10 06:23] LABS: POC Glucose,Bedside 140 (70-110)
--- NOTE | 2022-07-10 08:06 | PC.NURSE ---
i put 2lnc on pt due to him complaining he felt short of air. His oxygen was 97% on RA. he reports feeling more comfortable with it on @ this time
--- NOTE | 2022-07-10 08:08 | EXP.HP ---
History of Present Illness *Admission Date: 07/10/22 *Reason for visit:: abdominal pain *History of present illness: Mr. Weber is a 76 year old patient of [facility] who presented to [facility] ER overnight complaining of abdominal pain.; He was awoken from sleep around 3 am with generalized abdominal pain and was unable to get any relief from the pain. He reported a couple day history of not feeling well. These symptoms consisted of abdominal gurgling , discomfort and some constipation. He had subjective fever overnight, no chills. [facility] Disclaimer: The information contained in this section may have been updated after the patient was seen, as this information can be updated by other users. Medical History (Updated 07/10/22 @ 08:17 by Gavin Charles MD) Atrial fibrillation BPH (benign prostatic hyperplasia) Calculus of kidney Fatigue Former smoker Hyperlipidemia Hypertension Hypothyroidism Normal colonoscopy Pancreatitis Right ureteral calculus Stage 3b chronic kidney disease (CKD) Type 2 diabetes mellitus Surgical History (Updated 07/10/22 @ 08:17 by Gavin Charles MD) S/P ureteral stent placement Family History Heart disease Father Hypertension Mother Social History Smoking Status: Former smoker alcohol intake: never substance use type: denies use current occupational status: retired and other Travel in the last 8 weeks: None adopted: No caregiver/support person: Yes (SPOUSE) foster care: No household members: spouse housing: house lives independently: Yes marital status: education level: college service: Yes fci: No current occupational exposures/hazards: No (RETIRED) caffeine: Yes Review of Systems Constitutional Constitutional: Denies chills and Reports fever(s) Eyes Eyes: Denies blurry vision ENT Ears, Nose, Mouth, and Throat: Denies dysphagia *Cardiovascular Cardiovascular: Denies chest pain *Respiratory Respiratory: Denies cough *Gastrointestinal Gastrointestinal: Denies dysphagia *Genitourinary Genitourinary: Denies difficulty urinating *Musculoskeletal Musculoskeletal: Denies arthralgias Integumentary/Breasts Skin/Breast: Denies rash *Neurologic Neurologic: Denies localized weakness Meds Home Medications and Allergies Home Medications Medication Instructions Recorded Confirmed Type allopurinol 100 mg tablet 200 mg PO DAILY gout 09/01/19 07/10/22 History atorvastatin 40 mg tablet 40 mg PO HS Cholesterol 09/01/19 07/10/22 History fenofibrate 160 mg tablet 160 mg PO DAILY Cholesterol 09/01/19 07/10/22 History levothyroxine 125 mcg tablet 125 mcg PO DAILY thyroid 09/01/19 07/10/22 History metformin 1,000 mg tablet 1,000 mg PO BID Diabetes 09/01/19 07/10/22 History cholecalciferol (vitamin D3) 1,250 1,250 mcg PO WEEKLY Supplement 01/06/22 07/10/22 History mcg (50,000 unit) capsule dapagliflozin 10 mg tablet 10 mg PO DAILY Diabetes 01/06/22 07/10/22 History (Farxiga) diltiazem HCl 240 mg 240 mg PO DAILY a fib 01/06/22 07/10/22 History capsule,extended release 24 hr rivaroxaban 15 mg tablet (Xarelto) 15 mg PO DAILY Blood thinner 01/06/22 07/10/22 History tamsulosin 0.4 mg capsule 0.4 mg PO DAILY BPH 01/06/22 07/10/22 History irbesartan 300 mg tablet 300 mg PO DAILY High blood pressure 06/22/22 07/10/22 History metoprolol tartrate 50 mg tablet 150 mg PO BID heart rate 07/10/22 07/10/22 History minoxidil 2.5 mg tablet 5 mg PO DAILY High blood pressure 07/10/22 07/10/22 History psyllium 1 packet PO TID constipation 07/10/22 07/10/22 History New Prescriptions to Start Prescriptions: Allergies Allergy/AdvReac Type Severity Reaction Status Date / Time No Known Allergies Allergy Verified 07/07/22 13:08 Exam Data for Last 24 hours Vital signs and Labs for Last 24 Hours: Temp Pulse Resp
--- NOTE | 2022-07-10 08:35 | HMH.ITSTN ---
I advised nurse that this does not meet the policy to call in an photo lab technician. I advised if surgeon is called in to operate today and he wants it then if the surgeon orders then I can call them in. Nurse will advised Dewayne the that is the hospital floor dr today and call and advise as needed. CT scan was just done at 3:30am and report is in there are gallstones and wall thickening
--- NOTE | 2022-07-10 09:28 | PC.NURSE ---
pt will not take any po medications until he is evaluated by the surgeon
--- NOTE | 2022-07-10 09:32 | HMH.PHAINT1 ---
Pharmacy Intervention Comments: MEDICATION RECONCILIATION COMPLETED ON PATIENT USING EXTERNAL FILL HISTORY FROM PHARMACY AND LIST FROM CARDIOLOGY OFFICE. -CORA RAMOS, PAWELD
--- NOTE | 2022-07-10 10:03 | EXP.SURG.CON ---
History of Present Illness *Admission Date: 07/10/22 *Reason for visit:: Acute cholecystitis *History of present illness: Patient is a 76-year-old male with history of chronic kidney disease, chronic atrial fibrillation, mild congestive heart failure, hypertension, type 2 diabetes. He is on Xarelto. Patient states that recently he has undergone multiple manipulations of blood pressure medications which he attributes to many of his recent plethora of symptoms. He presented to the emergency department early this morning with a multitude of complaints including weakness, chills, elevated blood pressure, abdominal discomfort, confusion, diminished appetite, nausea. He describes symptoms of abdominal fullness and bloating and the sensation of gurgling in his stomach. He underwent thorough evaluation in the emergency department. Is found to have a mild leukocytosis of 11,000. He had elevated blood pressure at 1 point of 210/70 and was administered hydralazine. Patient had an elevated BNP and a chest x-ray showed findings of vascular congestion and therefore he was ordered IV furosemide. CT scan of the abdomen revealed gallstones without radiographic cholecystitis. He was admitted for inpatient management. Surgical consultation was obtained for acute cholecystitis. [facility] Disclaimer: The information contained in this section may have been updated after the patient was seen, as this information can be updated by other users. Medical History (Updated 07/10/22 @ 10:27 by Bay Gallo MD) Atrial fibrillation BPH (benign prostatic hyperplasia) Calculus of kidney Fatigue Former smoker Hyperlipidemia Hypertension Hypothyroidism Normal colonoscopy Pancreatitis Right ureteral calculus Stage 3b chronic kidney disease (CKD) Type 2 diabetes mellitus Surgical History (Updated 07/10/22 @ 08:17 by Gavin Charles MD) S/P ureteral stent placement Family History Heart disease Father Hypertension Mother Social History Smoking Status: Former smoker alcohol intake: never substance use type: denies use current occupational status: retired and other Travel in the last 8 weeks: None adopted: No caregiver/support person: Yes (SPOUSE) foster care: No household members: spouse housing: house lives independently: Yes marital status: education level: college service: Yes usp: No current occupational exposures/hazards: No (RETIRED) caffeine: Yes Review of Systems Constitutional Constitutional: Reports headache(s) and Reports weakness ENT Ears, Nose, Mouth, and Throat: Reports headache(s) *Neurologic Neurologic: Reports confusion, Denies localized weakness, Reports headache(s) and Reports weakness Psychiatric Psychiatric: Reports confusion Meds Home Medications and Allergies Home Medications Medication Instructions Recorded Confirmed Type allopurinol 100 mg tablet 200 mg PO DAILY gout 09/01/19 07/10/22 History atorvastatin 40 mg tablet 40 mg PO HS Cholesterol 09/01/19 07/10/22 History fenofibrate 160 mg tablet 160 mg PO DAILY Cholesterol 09/01/19 07/10/22 History levothyroxine 125 mcg tablet 125 mcg PO DAILY thyroid 09/01/19 07/10/22 History metformin 1,000 mg tablet 1,000 mg PO BID Diabetes 09/01/19 07/10/22 History cholecalciferol (vitamin D3) 1,250 1,250 mcg PO WEEKLY Supplement 01/06/22 07/10/22 History mcg (50,000 unit) capsule dapagliflozin 10 mg tablet 10 mg PO DAILY Diabetes 01/06/22 07/10/22 History (Farxiga) diltiazem HCl 240 mg 240 mg PO DAILY HEART RATE 01/06/22 07/10/22 History capsule,extended release 24 hr rivaroxaban 15 mg tablet (Xarelto) 15 mg PO QPMWITHMEAL Blood thinner 01/06/22 07/10/22 History tamsulosin 0.4 mg capsule 0.4 mg PO DAILY PROSTATE 01/06/22 07/10/22 History irbesartan 300 mg tablet 300 mg PO DAILY Hypertension 06/22/22
--- NOTE | 2022-07-10 11:59 | PC.NURSE ---
spoke with Surgeon regarding pt diet. Pt can have clear liquids until gallbladder ultrasound which will likely be tuesday.
[2022-07-10 12:03] LABS: POC Glucose,Bedside 111 (70-110)
[2022-07-10 17:32] LABS: POC Glucose,Bedside 102 (70-110)
[2022-07-10 22:27] LABS: POC Glucose,Bedside 104 (70-110)
[2022-07-11] VITALS (8 sets, daily range): BP systolic 131–163; BP diastolic 74–99; PULSE 64–90; RESP 16–18; TEMP 36.6; O2SAT 95–98; BMI 29.6
--- NOTE | 2022-07-11 06:09 | PC.NURSE ---
HAS HAD A QUIET NIGHT. NO C/O PAIN OR SOA. AFIB ON TELE. AT BEDSIDE.
[2022-07-11 06:16] LABS: POC Glucose,Bedside 144 (70-110)
[2022-07-11 06:44] LABS: Basophils % 0.5 % (0.1-2.0); Eosinophils # 0.3 K/mm3 (0.0-0.4); Eosinophils % 3.9 % (0.1-12.0); Hematocrit 36.3 % (42.0-52.0); Hemoglobin 11.8 g/dL (14.1-18.0); Lymphocytes # 1.2 K/mm3 (0.7-4.5); Lymphocytes % 14.1 % (10-50); Mean Corpuscular HGB Conc 32.4 g/dL (31.8-35.4); Mean Corpuscular Hemoglobin 28.8 pg (27.0-31.2); Mean Corpuscular Volume 88.8 fl (80-94); Mean Platelet Volume 8.7 fl (7.4-10.4); Monocytes # 0.5 K/mm3 (0.1-1.0); Monocytes % 5.6 % (1.7-9.3); Neutrophils # 6.2 K/mm3 (1.8-7.8); Neutrophils % 75.9 % (37.0-80.0); Platelet Count 289 K/mm3 (142-424); Red Blood Count 4.09 M/mm3 (4.60-6.20); Red Cell Distribution Width 15.9 % (11.5-17.5); White Blood Count 8.2 K/mm3 (4.8-10.8)
[2022-07-11 06:55] LABS: Alanine Aminotransferase 20 U/L (12-78); Albumin Level 3.3 g/dl (3.5-5.0); Albumin/Globulin Ratio 1.3 (1.1-1.8); Alkaline Phosphatase 31 U/L (38-126); Anion Gap 9.7 mEq/L (5-15); Aspartate Amino Transferase 22 U/L (17-59); Bilirubin,Total 0.8 mg/dl (0.2-1.3); Blood Urea Nitrogen 28 mg/dl (9-20); Carbon Dioxide 26 mmol/L (22.0-30.0); Chloride 105 mmol/L (98-107); Creatinine Clearance Estimated 42 mL/min (50-200); Estimated Glomerular Filt Rate 35 ml/min (>60); GFR (African American) 42 ML/MIN (>60); Globulin 2.6 g/dL (1.3-3.2); Glucose 105 mg/dl (74-100); Potassium 3.7 mmoL/L (3.5-5.1); Sodium 137 mmol/L (136-145); Total Protein,Serum 5.9 g/dl (6.3-8.2)
--- NOTE | 2022-07-11 10:44 | EXP.ACUTE.PN ---
Subjective *Date: 07/11/22 *Time: 10:44 Interval history: Patient feels better today, less abdominal discomfort. Tolerating clear liquid diet. Evidently his RUQ U/S was canceled due to a new hospital policy that states on surgeons may order ultrasounds on nights and weekends. Medical Exam Vital signs and Labs for Last 24 Hours: Vital Signs Temp Pulse Pulse Resp BP Pulse Ox 07/11/22 08:00 78 07/11/22 07:34 97.9 F 85 17 144/86 H 98 07/11/22 04:00 97.9 F 67 16 135/74 98 07/10/22 20:00 97 07/10/22 20:00 88 07/10/22 23:51 98.8 F 75 16 120/75 97 07/10/22 19:54 98.5 F 92 H 18 139/65 96 07/10/22 16:00 70 07/10/22 15:50 98.5 F 78 18 117/79 97 07/10/22 13:30 88 145/83 H 07/10/22 12:00 98.5 F 91 H 18 165/99 H 98 Intake and Output 07/10/22 07/11/22 07/11/22 22:59 07:59 15:59 Intake Total Output Total 0 / 0 Balance 0 / 980 Intake: Intake, Oral Amount Output: Output, Urine Amount 0 / 0 Other: Number of Unmeasured Voids 1 Weight Patient Weight 07/12/22 00:59 Weight 200 lb 1.6 oz Laboratory Results - last 24 hr 07/10/22 11:53: POC Glucose 111 H 07/10/22 17:25: POC Glucose 102 07/10/22 20:54: POC Glucose 104 07/11/22 06:03: POC Glucose 144 H 07/11/22 06:19: WBC 8.2 D, RBC 4.09 L, Hgb 11.8 L, Hct 36.3 L, MCV 88.8, MCH 28.8, MCHC 32.4, RDW 15.9, Plt Count 289, MPV 8.7, Neut % (Auto) 75.9, Lymph % (Auto) 14.1, [place] % (Auto) 5.6, Eos % (Auto) 3.9, Baso % (Auto) 0.5, Neut # (Auto) 6.2, Lymph # (Auto) 1.2, [place] # (Auto) 0.5, Eos # (Auto) 0.3, Baso # (Auto) 0.0 07/11/22 06:19: Sodium 137, Potassium 3.7, Chloride 105, Carbon Dioxide 26, Anion Gap 9.7, BUN 28 H, Creatinine 1.90 H, Estimated Creat Clear 42, Estimated GFR 35 L, Est GFR ( Amer) 42 L, Glucose 105 H, Calcium 8.0 L, Total Bilirubin 0.8, AST 22, ALT 20, Alkaline Phosphatase 31 L, Total Protein 5.9 L, Albumin 3.3 L D, Globulin 2.6, Albumin/Globulin Ratio 1.3 I & O for Labs for Last 24 Hours: Intake & Output 07/08/22 07/09/22 07/10/22 07/12/22 23:59 23:59 23:59 00:59 Intake Total 720 / 960 980 / 980 Output Total 0 / 0 0 / 0 Balance 720 / 960 980 / 980 Weight 199 lb 8 oz 200 lb 1.6 oz Constitutional: Present no acute distress Respiratory: Present normal respiratory effort Cardiac: Present Reg Rate and Rhythm GI: Present tenderness (much less RUQ tenderness today) and normal bowel sounds Extremities: Present normal inspection and full ROM Skin: Present intact; Absent erythema Neuro: Present Grossly Intact and moves all extremities Assessment and Plan *Assessment and plan (1) Abdominal pain: Status: Acute Category: Medical Code(s): R10.9 - Unspecified abdominal pain (2) Cholelithiasis: Status: Acute Category: Medical Code(s): K80.20 - Calculus of gallbladder without cholecystitis without obstruction (3) Hypertensive urgency: Status: Acute Category: Medical Code(s): I16.0 - Hypertensive urgency (4) Chronic atrial fibrillation: Status: Acute Category: Medical Code(s): I48.20 - Chronic atrial fibrillation, unspecified (5) Elevated brain natriuretic peptide (BNP) level: Status: Acute Category: Medical Code(s): R79.89 - Other specified abnormal findings of blood chemistry (6) Hypothyroidism: Status: Acute Category: Medical Code(s): E03.9 - Hypothyroidism, unspecified (7) BPH (benign prostatic hyperplasia): Status: Acute Category: Medical Code(s): N40.0 - Benign prostatic hyperplasia without lower urinary tract symptoms (8) Hypertension: Status: Acute Qualifiers: Hypertension type: unspecified Qualified Code(s): I10 - Essential (primary) hypertension Category: Medical Code(s): I10 - Essential (primary) hypertension (9) Hyperlipidemia: Status: Acute Quali
[2022-07-11 11:52] LABS: POC Glucose,Bedside 100 (70-110)
--- NOTE | 2022-07-11 11:56 | EXP.SURG.PN ---
Subjective Narrative: This is patient's second hospital day. Patient states that he feels better. He is essentially at his baseline. He denies abdominal pain. Exam Data for Last 24 hours Vital signs and Labs for Last 24 Hours: Temp Pulse Resp BP Pulse Ox 97.9 F 66 17 131/87 97 07/11/22 11:03 07/11/22 11:03 07/11/22 11:03 07/11/22 11:03 07/11/22 11:03 Laboratory Results - last 24 hr 07/10/22 11:53: POC Glucose 111 H 07/10/22 17:25: POC Glucose 102 07/10/22 20:54: POC Glucose 104 07/11/22 06:03: POC Glucose 144 H 07/11/22 06:19: WBC 8.2 D, RBC 4.09 L, Hgb 11.8 L, Hct 36.3 L, MCV 88.8, MCH 28.8, MCHC 32.4, RDW 15.9, Plt Count 289, MPV 8.7, Neut % (Auto) 75.9, Lymph % (Auto) 14.1, [place] % (Auto) 5.6, Eos % (Auto) 3.9, Baso % (Auto) 0.5, Neut # (Auto) 6.2, Lymph # (Auto) 1.2, [place] # (Auto) 0.5, Eos # (Auto) 0.3, Baso # (Auto) 0.0 07/11/22 06:19: Sodium 137, Potassium 3.7, Chloride 105, Carbon Dioxide 26, Anion Gap 9.7, BUN 28 H, Creatinine 1.90 H, Estimated Creat Clear 42, Estimated GFR 35 L, Est GFR ( Amer) 42 L, Glucose 105 H, Calcium 8.0 L, Total Bilirubin 0.8, AST 22, ALT 20, Alkaline Phosphatase 31 L, Total Protein 5.9 L, Albumin 3.3 L D, Globulin 2.6, Albumin/Globulin Ratio 1.3 07/11/22 11:40: POC Glucose 100 I & O for Last 24 hours: Intake & Output 07/08/22 07/09/22 07/10/22 07/11/22 11:59 11:59 11:59 12:59 Intake Total 1700 / 1700 Output Total 0 / 0 0 / 0 Balance 0 / 0 1700 / 1700 Weight 199 lb 8 oz 200 lb 1.6 oz *Routine Abdominal Exam Abdominal: Present soft; Absent tenderness Progress Note: A&P Assessment and plan (1) Abdominal pain: Status: Acute (2) Cholelithiasis: Status: Acute Assessment and plan: CT scan imaging reveals uncomplicated gallstones. Currently asymptomatic. Patient has not undergone ultrasound as of yet as it was not deemed emergent. He did have Xarelto yesterday evening as there was no indication for emergent surgery. Patient to undergo gallbladder ultrasound tomorrow morning. (3) Hypertensive urgency: Status: Acute (4) Chronic atrial fibrillation: Status: Acute (5) Elevated brain natriuretic peptide (BNP) level: Status: Acute (6) Hypothyroidism: Status: Acute (7) BPH (benign prostatic hyperplasia): Status: Acute (8) Hypertension: Status: Acute (9) Hyperlipidemia: Status: Acute (10) Type 2 diabetes mellitus: Status: Acute (11) Atrial fibrillation: Status: Acute (12) Stage 3b chronic kidney disease (CKD): Status: Acute
[2022-07-11 17:23] LABS: POC Glucose,Bedside 95 (70-110)
[2022-07-11 21:06] LABS: POC Glucose,Bedside 108 (70-110)
[2022-07-12] VITALS (25 sets, daily range): BP systolic 101–167; BP diastolic 66–107; PULSE 59–89; RESP 11–20; TEMP 36.1–43; O2SAT 93–99; BMI 29.2; BMI 29.0
--- NOTE | 2022-07-12 06:07 | EXP.SURG.PN ---
Subjective Narrative: Patient is without significant complaints. He does describe some occasional periumbilical discomfort. Exam Data for Last 24 hours Vital signs and Labs for Last 24 Hours: Temp Pulse Resp BP Pulse Ox 98.2 F 72 16 139/89 98 07/12/22 04:00 07/12/22 04:00 07/12/22 04:00 07/12/22 04:00 07/12/22 04:00 Laboratory Results - last 24 hr 07/11/22 06:03: POC Glucose 144 H 07/11/22 06:19: WBC 8.2 D, RBC 4.09 L, Hgb 11.8 L, Hct 36.3 L, MCV 88.8, MCH 28.8, MCHC 32.4, RDW 15.9, Plt Count 289, MPV 8.7, Neut % (Auto) 75.9, Lymph % (Auto) 14.1, Burnett % (Auto) 5.6, Eos % (Auto) 3.9, Baso % (Auto) 0.5, Neut # (Auto) 6.2, Lymph # (Auto) 1.2, Burnett # (Auto) 0.5, Eos # (Auto) 0.3, Baso # (Auto) 0.0 07/11/22 06:19: Sodium 137, Potassium 3.7, Chloride 105, Carbon Dioxide 26, Anion Gap 9.7, BUN 28 H, Creatinine 1.90 H, Estimated Creat Clear 42, Estimated GFR 35 L, Est GFR ( Amer) 42 L, Glucose 105 H, Calcium 8.0 L, Total Bilirubin 0.8, AST 22, ALT 20, Alkaline Phosphatase 31 L, Total Protein 5.9 L, Albumin 3.3 L D, Globulin 2.6, Albumin/Globulin Ratio 1.3 07/11/22 11:40: POC Glucose 100 07/11/22 17:11: POC Glucose 95 07/11/22 20:55: POC Glucose 108 I & O for Last 24 hours: Intake & Output 07/09/22 07/10/22 07/11/22 07/12/22 10:59 10:59 11:59 11:59 Intake Total 1360 / 1360 Output Total 0 / 0 Balance 1360 / 1360 Weight 197 lb 6.4 oz Microbiology Reports for the Last 24 Hours: Microbiology 07/10/22 04:45 Blood Blood Culture - Preliminary NO GROWTH AFTER 48 HOURS 07/10/22 04:45 Blood Blood Culture - Preliminary NO GROWTH AFTER 48 HOURS *Routine Abdominal Exam Abdominal: Present soft; Absent tenderness Progress Note: A&P Assessment and plan (1) Abdominal pain: Status: Acute (2) Cholelithiasis: Status: Acute Assessment and plan: Patient undergo ultrasound today to better characterize the nature of the gallstones. Clinically stable regarding potential for cholecystitis. Given his history he obviously will need cardiology input prior to proceeding with surgery. Consultation will be ordered. Possible cholecystectomy later pending ultrasound and cardiology input. (3) Hypertensive urgency: Status: Acute (4) Chronic atrial fibrillation: Status: Acute (5) Elevated brain natriuretic peptide (BNP) level: Status: Acute (6) Hypothyroidism: Status: Acute (7) BPH (benign prostatic hyperplasia): Status: Acute (8) Hypertension: Status: Acute (9) Hyperlipidemia: Status: Acute (10) Type 2 diabetes mellitus: Status: Acute (11) Atrial fibrillation: Status: Acute (12) Stage 3b chronic kidney disease (CKD): Status: Acute
[2022-07-12 07:08] LABS: POC Glucose,Bedside 101 (70-110)
--- NOTE | 2022-07-12 08:51 | EXP.PN ---
Subjective *Date: 07/12/22 *Time: 08:57 Interval history: Patient has taken a full liquid diet without any problems. He did sleep last night. He denies abdominal pain, nausea and vomiting.. He has been up to the bathroom without difficulty. Exam Data for Last 24 hours Vital signs and Labs for Last 24 Hours: Temp Pulse Resp BP Pulse Ox 98.2 F 72 16 139/89 98 07/12/22 04:00 07/12/22 04:00 07/12/22 04:00 07/12/22 04:00 07/12/22 04:00 Laboratory Results - last 24 hr 07/11/22 11:40: POC Glucose 100 07/11/22 17:11: POC Glucose 95 07/11/22 20:55: POC Glucose 108 07/12/22 06:58: POC Glucose 101 I & O for Last 24 hours: Intake & Output 07/09/22 07/10/22 07/11/22 07/12/22 10:59 10:59 11:59 11:59 Intake Total 1360 / 1360 Output Total 0 / 0 Balance 1360 / 1360 Weight 197 lb 6.4 oz Microbiology Reports for the Last 24 Hours: Microbiology 07/10/22 04:45 Blood Blood Culture - Preliminary NO GROWTH AFTER 48 HOURS 07/10/22 04:45 Blood Blood Culture - Preliminary NO GROWTH AFTER 48 HOURS Constitutional Constitutional: no acute distress *Routine Respiratory Exam Respiratory: Present rhonchi (Few scattered rhonchi posteriorly) *Routine Cardiovascular Exam Cardiovascular: Present irregularly irregular (Monitor showing atrial fibrillation with controlled ventricular rate in the 70s) *Routine Abdominal Exam Abdominal: Present soft and normoactive bowel sounds; Absent tenderness or guarding *Routine Extremities Exam Extremities: Absent edema or calf tenderness Assessment and Plan *Assessment and plan (1) Abdominal pain: Status: Acute Category: Medical Code(s): R10.9 - Unspecified abdominal pain (2) Cholelithiasis: Status: Acute Category: Medical Code(s): K80.20 - Calculus of gallbladder without cholecystitis without obstruction (3) Hypertensive urgency: Status: Acute Category: Medical Code(s): I16.0 - Hypertensive urgency (4) Chronic atrial fibrillation: Status: Acute Category: Medical Code(s): I48.20 - Chronic atrial fibrillation, unspecified (5) Elevated brain natriuretic peptide (BNP) level: Status: Acute Category: Medical Code(s): R79.89 - Other specified abnormal findings of blood chemistry (6) Hypothyroidism: Status: Acute Category: Medical Code(s): E03.9 - Hypothyroidism, unspecified (7) BPH (benign prostatic hyperplasia): Status: Acute Category: Medical Code(s): N40.0 - Benign prostatic hyperplasia without lower urinary tract symptoms (8) Hypertension: Status: Acute Qualifiers: Hypertension type: unspecified Qualified Code(s): I10 - Essential (primary) hypertension Category: Medical Code(s): I10 - Essential (primary) hypertension (9) Hyperlipidemia: Status: Acute Qualifiers: Hyperlipidemia type: unspecified Qualified Code(s): E78.5 - Hyperlipidemia, unspecified Category: Medical Code(s): E78.5 - Hyperlipidemia, unspecified (10) Type 2 diabetes mellitus: Status: Acute Qualifiers: Diabetes mellitus complication status: with other specified complication Diabetes mellitus intermediate designer insulin use: unspecified assisted insulin use status Qualified Code(s): E11.69 - Type 2 diabetes mellitus with other specified complication Category: Medical Code(s): E11.9 - Type 2 diabetes mellitus without complications (11) Atrial fibrillation: Status: Acute Category: Medical Code(s): I48.91 - Unspecified atrial fibrillation (12) Stage 3b chronic kidney disease (CKD): Status: Acute Category: Medical Code(s): N18.32 - Chronic kidney disease, stage 3b Plan Should have a right upper quadrant ultrasound today. Seems to have improved. Dr. Charles entry
--- NOTE | 2022-07-12 09:22 | US_ITS ---
FINAL REPORT CLINICAL HISTORY: gallstones and gallbladder wall thickening FINDINGS: Sonographic images of the right upper quadrant were obtained. The pancreas is partially obscured.The liver has an unremarkable appearance. The portal vein is patent with normal directional flow. There is nonspecific gallbladder wall thickening up to 5 mm. There are questionable small gallstones versus polyps. There is no evidence of biliary ductal dilatation.The common duct measures 4mm. The right kidney measures 11.0 cm in length. There are several right renal cysts measuring up to 0.6 cm. IMPRESSION: Nonspecific gallbladder wall thickening with questionable small stones versus polyps. Follow-up ultrasound may be helpful. Right renal cysts. Reviewed, Interpreted and Dictated by Bay Enamorado III, MD Transcribed by Elizabeth Cabrera Authenticated and . [facility]
[2022-07-12 09:47] LABS: Campylobacter Not Detected (NotDetected); Clostridium Difficile A/B, PCR Not Detected (NotDetected); Enteroaggregative E coli Not Detected (NotDetected); Enteropathogenic E coli Not Detected (NotDetected); Enterotoxigenic E coli Not Detected (NotDetected); Plesimonas Shigalloides, PCR Not Detected (NotDetected); Salmonella, PCR Not Detected (NotDetected); Shiga-like toxin E coli Not Detected (NotDetected); Vibrio Cholerae Not Detected (NotDetected); Vibrio, PCR Not Detected (NotDetected); Yersinia Entercolitica, PCR Not Detected (NotDetected)
[2022-07-12 09:48] LABS: Adenovirus F 40/41, stool Not Detected (NotDetected); Astrovirus Not Detected (NotDetected); Cryptosporidium Not Detected (NotDetected); Cyclospora Cayetanesis Not Detected (NotDetected); Entamoeba histolytica Not Detected (NotDetected); Giardia lamblia Not Detected (NotDetected); Norovirus Not Detected (NotDetected); Rotavirus A Not Detected (NotDetected); Sapovirus Not Detected (NotDetected); Shigella Enterovasive E coli Not Detected (NotDetected)
--- NOTE | 2022-07-12 10:35 | EXP.CARD.CON ---
History of Present Illness History of Present Illness Consult date: 07/12/22 Requesting physician: Bay Gallo Consult reason: pre-op evaluation Chief complaint: Pre-op evaluation, HTN, cholecystitis Additional Medical History:: 1. History of paroxysmal atrial fibrillation, rate controlled A. Xarelto therapy 2. Hypertension A. Echocardiogram, 01/12/2022, mild LAE, normal LV size, mild concentric LVH, EF 55% with no regional WMA. Diastolic parameters inconclusive. Trace MR and TR. B. Renal artery duplex, 06/23/2022, no evidence of significant renal artery stenosis. Bilateral renal cysts noted 3. Hyperlipidemia 4. Diabetes mellitus type 2 5. Coronary artery calcification noted on abdominal/pelvis CT, 09/05/2019 A Lexiscan Myoview, 01/13/2022, no ischemia with EF 55%. 6. Bilateral renal cyst with nephrolithiasis, abdominal/pelvis CT, 08/2019 7. Cholelithiasis, abdominal/pelvis CT, 07/10/[address] of the chest, 07/10/2022, pathologic nodes in the posterior caval/pretracheal region (2.7 x 2 cm) in the preaortic region (17 x 15 mm) also noted adjacent to the ascending aorta (18 x 14 mm) 9. Probable chronic microvascular ischemic changes, head CT, 07/10/2022 10. CKD, stage III with creatinine 1.9 and GFR 35, 07/11/2022 History of present illness: 76-year-old white male admitted for abdominal pain with surgical work-up for acute cholecystitis. Currently tolerating liquid diet. Gallbladder ultrasound pending this morning with final decision regarding surgical intervention thereafter Patient has recently had multiple medication changes recently in regards to his blood pressure with improved control. He denies any chest pain, pressure or tightness. Recent stress test in December of last year showed no ischemia with normal EF. Patient is not complaining of any chest pain therefore he would be a low and acceptable risk from a cardiac standpoint to proceed with surgery if needed [facility] Disclaimer: The information contained in this section may have been updated after the patient was seen, as this information can be updated by other users. Medical History (Updated 07/11/22 @ 10:48 by Gavin Charles MD) Atrial fibrillation BPH (benign prostatic hyperplasia) Calculus of kidney Fatigue Former smoker Hyperlipidemia Hypertension Hypothyroidism Normal colonoscopy Pancreatitis Right ureteral calculus Stage 3b chronic kidney disease (CKD) Type 2 diabetes mellitus Surgical History (Updated 07/10/22 @ 08:17 by Gavin Charles MD) S/P ureteral stent placement Family History Heart disease Father Hypertension Mother Social History Smoking Status: Former smoker alcohol intake: never substance use type: denies use current occupational status: retired and other Travel in the last 8 weeks: None adopted: No caregiver/support person: Yes (SPOUSE) foster care: No household members: spouse housing: house lives independently: Yes marital status: education level: college service: Yes snf: No current occupational exposures/hazards: No (RETIRED) caffeine: Yes Review of Systems Review of Systems Review of systems:: pertinent systems reviewed and negative unless documented below Constitutional Constitutional: Reports headache(s) and Reports weakness ENT Ears, Nose, Mouth, and Throat: Reports headache(s) *Cardiovascular Cardiovascular: Denies chest pain and Denies dyspnea *Respiratory Respiratory: Denies dyspnea *Gastrointestinal Gastrointestinal: Reports abdominal pain *Neurologic Neurologic: Reports confusion, Denies localized weakness, Reports headache(s) and Reports weakness Psychiatric Psychiatric: Reports confusion Exam Data for Last 24 hours Vital signs and Labs for Last 24 Hours: Temp Pulse Resp BP Pulse Ox 98.2 F 66 20 149/107 H 98 07/12
--- NOTE | 2022-07-12 11:50 | P.PN_ITS ---
[facility] Disclaimer: The information contained in this section may have been updated after the patient was seen, as this information can be updated by other users. Medical History (Updated 07/11/22 @ 10:48 by Gavin Charles MD) Atrial fibrillation BPH (benign prostatic hyperplasia) Calculus of kidney Fatigue Former smoker Hyperlipidemia Hypertension Hypothyroidism Normal colonoscopy Pancreatitis Right ureteral calculus Stage 3b chronic kidney disease (CKD) Type 2 diabetes mellitus Surgical History (Updated 07/10/22 @ 08:17 by Gavin Charles MD) S/P ureteral stent placement Family History Heart disease Father Hypertension Mother Social History Smoking Status: Former smoker alcohol intake: never substance use type: denies use current occupational status: retired and other Travel in the last 8 weeks: None adopted: No caregiver/support person: Yes (SPOUSE) foster care: No household members: spouse housing: house lives independently: Yes marital status: education level: college service: Yes [employer]: No current occupational exposures/hazards: No (RETIRED) caffeine: Yes [facility] Anesthesia Checklist Patient Identification Patient Identification: Arm Band Structural Data Admitted From: Inpatient Planned Operative Procedure/s: Laparoscopic Cholecystectomy Consent for Planned Operative Procedure(s) Verified: Yes Verified Documents: Surgical Consent, History and Physical and Cardiac Clearance NPO Status Verified Time NPO: 00:00 Additional verifications Anesthesia Reactions: No Hx Blood Transfusions: No Blood Transfusion Reaction: No Airway Assessment C-Spine Mobility Assessed: Yes Dentition: Good Dentition Neurological Assessment Level of Consciousness: Awake and Alert Anesthesia Plan Anesthesia Risk discussed: Yes Anesthesia Plan: Verified ASA Class: III Anesthesia Type: General
--- NOTE | 2022-07-12 13:10 | EXP.OP.NOTE ---
Date of procedure: 07/12/22 Pre-op Diagnosis:: Cholecystitis Post-op Diagnosis:: Same Procedure performed:: Laparoscopic cholecystectomy Surgeon:: Bay Gallo MD ASSOCIATE PROGRAMMER ANALYST:: Leslie Waters Anesthesia: GETA Estimated blood loss (mL): 10 Operative findings:: Mildly thickened gallbladder Operative note:: Consent was obtained patient was taken to the operating room. He was positioned in supine position. General anesthesia was induced via endotracheal tube. Abdomen was prepped and draped in the standard surgical fashion. Subumbilical skin incision was made and while performing abdominal wall lift Veress needle was inserted. CO2 pneumoperitoneum was achieved to 15 mmHg. 11 mm optical trocar was inserted at the umbilicus. He was positioned in reverse Trendelenburg and left side down. A couple of 5 mm trocars were inserted in the right upper abdomen. 10 mm trocar was inserted in the epigastrium. Gallbladder was grasped retracted anteriorly and superiorly over the dome of the liver. There was some mild thickening of the gallbladder. Gallbladder was somewhat collapsed. Infundibulum of the gallbladder was grasped retracted anterior laterally. Blunt dissection was carried out the neck of the gallbladder. Dissection was carried out clearly identifying the cystic duct and cystic artery. With traction on the gallbladder there was some unavoidable spillage of bile from the gallbladder body which was suctioned free immediately. Endoloop was placed on this portion of the gallbladder. The cystic duct and cystic artery were clearly identified and isolated in the critical view of safety. The cystic duct was multiply clipped and sharply divided. Cystic artery was carefully coagulated with DIGNA ultrasonic robotic angella and divided. Gallbladder was dissected free from the liver in a retrograde fashion using DIGNA ultrasonic harmonic angella. Gallbladder was placed within an Endo Catch retrieval device and removed from the peritoneal cavity via the umbilical trocar site. Limited spot use of electrocautery was used on the gallbladder fossa to assure hemostasis. Gallbladder fossa and perihepatic space were irrigated and aspirated until clear. Trocars were removed as CO2 pneumoperitoneum was evacuated. Fascia at the umbilicus was closed with a couple of 0 Vicryl sutures. 0 Vicryl suture was placed in the anterior fascia at the epigastrium. Local anesthetic was infiltrated. Skin incisions were closed with 4-0 Monocryl in a subcuticular fashion. Dermabond and dressings were applied. Condition: stable Disposition: PACU Complications:: None immediately apparent
--- NOTE | 2022-07-12 13:21 | P.PNANES_ITS ---
[facility] Anesthesia Record Part I Anesthesia Record I Intake, IV Amount: 500 Estimated blood loss (mL): 10 Urine output (mL): 0 Blood Pressure: 110/72 SaO2: 93 Pulse Rate: 72 Respiratory Rate: 11 Temperature: 97.8 F Patient is:: Drowsy and Oral/Nasal airway Stable to PACU at:: 13:18
--- NOTE | 2022-07-12 14:15 | P.PNANES_ITS ---
[facility] Anesthesia Record Part II Anesthesia Record Part II Discharge Time: 13:48 Destination: Surgical Day Care (OP Surgery) PACU nurse assessment reviewed?: Yes Patient Condition:: Good Anesthesia Complications:: None Swallowing reflex intact?: Yes Cyanosis?: No Blood Pressure: 120/78 Pulse Rate: 67 Temperature: 97.8 F Mental Status: Alert & Oriented Pain level:: 0 Nausea and/or vomitting:: None Intake, IV Amount: 0
[2022-07-12 14:16] LABS: POC Glucose,Bedside 109 (70-110)
--- NOTE | 2022-07-12 16:10 | PC.NURSE ---
VSS. O2 at 1L via nasal cannula applied per patient request. O2 sats WDL on room air. Education provided regarding O2 supplementation
--- NOTE | 2022-07-12 16:32 | PC.NURSE ---
Pt alert and oriented. Laparoscopic cholecystectomy completed today. Lap sites x 4 with dermabond, telfa and tegaderm. Scant serosanguineous drainage on right lateral dressing. [place] for pain. Tolerating oral intake. SCD's on until xarelto restarted. On 1L O2 per patient request for comfort. Family at bedside throughout day.
[2022-07-12 17:05] LABS: POC Glucose,Bedside 155 (70-110)
[2022-07-13] VITALS: BP 116/69; PULSE 70; PULSE 75; RESP 16; TEMP 36.8; O2SAT 98
[2022-07-13 04:00] VITALS: BP 119/75; PULSE 63; PULSE 70; RESP 16; TEMP 36.7; O2SAT 97; BMI 29.5
--- NOTE | 2022-07-13 07:27 | EXP.SURG.PN ---
Subjective Narrative: Patient states that he feels well. No complaints. Tolerating diet. Exam Data for Last 24 hours Vital signs and Labs for Last 24 Hours: Temp Pulse Resp BP Pulse Ox 98.0 F 63 16 119/75 97 07/13/22 04:00 07/13/22 04:00 07/13/22 04:00 07/13/22 04:00 07/13/22 04:00 Laboratory Results - last 24 hr 07/12/22 09:40: Stl Aeromonas (PCR) Not detected, Stl C. cayetanensis PCR Not detected, Stool Rotavirus (PCR) Not detected, Stl Adenov F 40/41 PCR Not detected, Stool Astrovirus (PCR) Not detected, Stool Campylobacter PCR Not detected, Stl C.difficile Tox PCR Not detected, Stool Cryptosporidium PCR Not detected, Stl E.coli Shiga Tox PCR Not detected, Stool E coli O157 PCR Not detected, Stl Enterotoxigenic E PCR Not detected, Stool EPEC (PCR) Not detected, Stool EAEC (PCR) Not detected, Stl E. histolytica PCR Not detected, Stool Giardia Lamblia PCR Not detected, Stool Salmonella PCR Not detected, Stool Sapovirus (PCR) Not detected, Stl P. shigelloides PCR Not detected, Stl Shigella/EIEC PCR Not detected, St Y.enterocolitica PCR Not detected, Stool Vibrio (PCR) Not detected, Stl Vibrio cholerae PCR Not detected, Stl Norovirus GI/GII PCR Not detected 07/12/22 14:03: POC Glucose 109 07/12/22 16:53: POC Glucose 155 H I & O for Last 24 hours: Intake & Output 07/10/22 07/11/22 07/12/22 07/13/22 10:59 11:59 11:59 11:59 Intake Total 1360 / 1360 1929 1930 Output Total 0 / 0 0 / 0 Balance 1360 / 1360 193 / 193 Weight 198 lb 6 oz 199 lb 4.8 oz Microbiology Reports for the Last 24 Hours: Microbiology 07/10/22 04:45 Blood Blood Culture - Preliminary NO GROWTH AFTER 48 HOURS 07/10/22 04:45 Blood Blood Culture - Preliminary NO GROWTH AFTER 48 HOURS *Routine Abdominal Exam Abdominal: Present soft Comments: Dressings intact. Progress Note: A&P Assessment and plan (1) Cholelithiasis: Status: Acute Assessment and plan: Done well after uneventful cholecystectomy. From surgical standpoint okay for discharge regarding cholecystectomy. May restart Xarelto. May need appropriate followup regarding CT chest findings. (2) Abdominal pain: Status: Acute (3) Stage 3b chronic kidney disease (CKD): Status: Acute (4) Chronic atrial fibrillation: Status: Acute (5) Hypertension: Status: Acute (6) Hyperlipidemia: Status: Acute (7) Type 2 diabetes mellitus: Status: Acute
[2022-07-13 07:33] VITALS: BP 163/88; PULSE 82; RESP 19; TEMP 36.7; O2SAT 97
--- NOTE | 2022-07-13 08:02 | EXP.PN ---
Subjective *Date: 07/13/22 *Time: 08:48 Interval history: Patient states he is doing well this morning. He slept. He loved his breakfast. He has had no nausea or vomiting. He is ambulated to the bathroom without difficulty. He is passing flatus. He states his abdomen is sore. Uneventful cholecystectomy yesterday. #1 postop day Exam Data for Last 24 hours Vital signs and Labs for Last 24 Hours: Temp Pulse Resp BP Pulse Ox 98.1 F 82 19 163/88 H 97 07/13/22 07:33 07/13/22 07:33 07/13/22 07:33 07/13/22 07:33 07/13/22 07:33 Laboratory Results - last 24 hr 07/12/22 09:40: Stl Aeromonas (PCR) Not detected, Stl C. cayetanensis PCR Not detected, Stool Rotavirus (PCR) Not detected, Stl Adenov F 40/41 PCR Not detected, Stool Astrovirus (PCR) Not detected, Stool Campylobacter PCR Not detected, Stl C.difficile Tox PCR Not detected, Stool Cryptosporidium PCR Not detected, Stl E.coli Shiga Tox PCR Not detected, Stool E coli O157 PCR Not detected, Stl Enterotoxigenic E PCR Not detected, Stool EPEC (PCR) Not detected, Stool EAEC (PCR) Not detected, Stl E. histolytica PCR Not detected, Stool Giardia Lamblia PCR Not detected, Stool Salmonella PCR Not detected, Stool Sapovirus (PCR) Not detected, Stl P. shigelloides PCR Not detected, Stl Shigella/EIEC PCR Not detected, St Y.enterocolitica PCR Not detected, Stool Vibrio (PCR) Not detected, Stl Vibrio cholerae PCR Not detected, Stl Norovirus GI/GII PCR Not detected 07/12/22 14:03: POC Glucose 109 07/12/22 16:53: POC Glucose 155 H I & O for Last 24 hours: Intake & Output 07/10/22 07/11/22 07/12/22 07/13/22 10:59 11:59 11:59 11:59 Intake Total 1360 / 1360 1929 Output Total 0 / 0 0 / 0 Balance 1360 / 1360 1929 Weight 198 lb 6 oz 199 lb 4.8 oz Microbiology Reports for the Last 24 Hours: Microbiology 07/10/22 04:45 Blood Blood Culture - Preliminary NO GROWTH AFTER 48 HOURS 07/10/22 04:45 Blood Blood Culture - Preliminary NO GROWTH AFTER 48 HOURS Constitutional Constitutional: no acute distress Comments: Sitting upright in the bed and feels comfortable. *Routine Respiratory Exam Respiratory: Present CTA bilaterally (Anteriorly and posteriorly with good air movement) *Routine Cardiovascular Exam Cardiovascular: Present irregularly irregular Comments: Monitor showing atrial fib *Routine Abdominal Exam Abdominal: Present soft and normoactive bowel sounds Comments: 3 small dressings clean and dry *Routine Extremities Exam Extremities: Absent edema or calf tenderness *Routine Neurological Exam Neurological: Present alert and oriented X3 Assessment and Plan *Assessment and plan (1) Abnormal chest CT: Status: Acute Category: Medical Code(s): R93.89 - Abnormal findings on diagnostic imaging of other specified body structures (2) Cholelithiasis: Status: Acute Category: Medical Code(s): K80.20 - Calculus of gallbladder without cholecystitis without obstruction (3) Abdominal pain: Status: Acute Category: Medical Code(s): R10.9 - Unspecified abdominal pain (4) Stage 3b chronic kidney disease (CKD): Status: Acute Category: Medical Code(s): N18.32 - Chronic kidney disease, stage 3b (5) Chronic atrial fibrillation: Status: Acute Category: Medical Code(s): I48.20 - Chronic atrial fibrillation, unspecified (6) Hypertension: Status: Acute Qualifiers: Hypertension type: unspecified Qualified Code(s): I10 - Essential (primary) hypertension Category: Medical Code(s): I10 - Essential (primary) hypertension (7) Hyperlipidemia: Status: Acute Qualifiers: Hyperlipidemia type: unspecified Qualified Code(s): E78.5 - Hyperlipidemia, unspecified Category: Medical Code(s): E78.5 - Hyperlipidemia, unspecified (8) Type 2 diabetes ramo
--- NOTE | 2022-07-13 09:31 | HMH.PHAINT1 ---
Pharmacy Intervention Comments: Discharge medications discussed with patient. Patient verbalized understanding and had no questions at this time.
--- NOTE | 2022-07-14 14:06 | CARE MANAGER ---
Spoke with patient's spouse, who stated that Mr. Weber is doing well. He has picked up and started medication prescribed at discharge. She was aware of f/u appt.
--- NOTE | 2022-07-18 23:20 | EXP.DC.SUM ---
General Admission date:: 07/10/22 Discharge date: 07/13/22 HPI HPI HPI: Mr. Weber is a 76 year old patient of [facility] who presented to [facility] ER overnight complaining of abdominal pain.;? He was awoken from sleep around 3 am with generalized abdominal pain and was unable to get any relief from the pain.? He reported a couple day history of not feeling well.? These symptoms consisted of abdominal gurgling , discomfort and some constipation.? He had subjective fever overnight, no chills. Hospital Course Hospital Course Hospital Course: The patient was admitted and a right upper quadrant ultrasound was ordered. General surgery was consulted as well. His Xarelto was held and he was given a dose of Lasix. He was seen in consultation by Dr. Gallo. The patient did have gallstones, however Dr. Gallo did not feel the history and findings were consistent with acute cholecystitis and wanted to get an ultrasound first. The patient was started on clear liquids. His right upper quadrant ultrasound was canceled due to a new hospital policy that stated on-call surgeons may order ultrasounds on nights and weekends. His diet was advanced to full liquid. The patient was seen in consultation by cardiology and they felt the patient was a low and acceptable risk to proceed with surgery if recommended. They felt he should resume his Xarelto after surgery within 24 to 48 hours. The patient finally had his ultrasound and this showed nonspecific gallbladder wall thickening with questionable small stones versus polyps. He was taken to the OR by Dr. Gallo on 07/12/2022 and had a laparoscopic cholecystectomy. By 07/13/2022, he was feeling well and was tolerating a diet. Dr. Gallo felt he could be discharged home. His chest CT did show a pathologic node in the post caval/pretracheal region as well as 1 in the preaortic region and one adjacent to the ascending aorta. These abnormalities will be followed up on an outpatient basis. The patient was stable to be discharged home. Exam Data for Last 24 hours Vital signs and Labs for Last 24 Hours: Temp Pulse Resp BP Pulse Ox 98.1 F 82 19 163/88 H 97 07/13/22 07:33 07/13/22 07:33 07/13/22 07:33 07/13/22 07:33 07/13/22 07:33 Narrative: Constitutional Constitutional: no acute distress *Routine HEENT Exam Head: Present normocephalic Eye: Present EOMI and PERRL ENT: Present mucous membranes moist *Routine Neck Exam Neck: Present supple; Absent lymphadenopathy *Routine Respiratory Exam Respiratory: Present CTA bilaterally *Routine Cardiovascular Exam Cardiovascular: Present irregularly irregular *Routine Abdominal Exam Abdominal: Present soft, normoactive bowel sounds and tenderness (RUQ) *Routine Rectal Exam Rectal:: deferred *Routine Genitalia Exam Genitalia:: deferred *Routine Extremities Exam Extremities: Absent cyanosis, clubbing or edema *Routine Skin Exam Skin: Present warm; Absent rash *Routine Neurological Exam Neurological: Present alert and oriented X3 DS: Diagnosis Discharge Diagnosis (1) Abnormal chest CT: Status: Acute (2) Cholelithiasis: Status: Acute (3) Abdominal pain: Status: Acute (4) Stage 3b chronic kidney disease (CKD): Status: Acute (5) Chronic atrial fibrillation: Status: Acute (6) Hypertension: Status: Acute (7) Hyperlipidemia: Status: Acute (8) Type 2 diabetes mellitus: Status: Acute Meds Home Medications and Allergies Home Medications Medication Instructions Recorded Confirmed Type allopurinol 100 mg tablet 200 mg PO DAILY gout 09/01/19 07/10/22 History atorvastatin 40 mg tablet 40 mg PO HS Cholesterol 09/01/19 07/10/22 History fenofibrate 160 mg tablet 160 mg PO DAILY Cholesterol 09/01/19 07/10/22 History levothyroxine 125 mcg tablet 125 mcg PO DAILY thyroid 09/01/19 07/10/22 History metformin 1,000 mg tablet 1,000 mg PO BID Diabetes 09/01/19 07/10/22 History cholecalciferol (vit
== END 2022-07-13 09:49 | disposition home or self-care (01) ==
LOC: ER 04:27 → 2ND 05:29
PROVIDERS: Surgery; Admitting Provider Family Medicine; Emergency Provider Emergency Medicine; PCP Family Medicine; Visit Provider Family Medicine
PROC: 0FT44ZZ Resection of Gallbladder, Percutaneous Endoscopic Approach (ICD-10-PCS; CPT 47562; principal; 2022-07-12 13:00)
DX: K81.0 Acute cholecystitis (principal); I16.0 Hypertensive urgency; I48.20 Chronic atrial fibrillation, unspecified; E03.9 Hypothyroidism, unspecified; N40.0 Benign prostatic hyperplasia without lower urinary tract symptoms; E78.5 Hyperlipidemia, unspecified; N18.32 Chronic kidney disease, stage 3b; E11.22 Type 2 diabetes mellitus with diabetic chronic kidney disease; I13.0 Hypertensive heart and chronic kidney disease with heart failure and stage 1 through stage 4 chronic kidney disease, or unspecified chronic kidney disease; Z87.891 Personal history of nicotine dependence; Z79.84 Long term (current) use of oral hypoglycemic drugs; Z79.01 Long term (current) use of anticoagulants; Z79.899 Other long term (current) drug therapy; Z20.822 Contact with and (suspected) exposure to COVID-19
CPT/HCPCS: 47562; G0378; 36415; 70450; 71046; 71250; 74176; 76705; 80053; 81001; 82140; 82550; 82553; 82962; 83605; 83690; 83880; 84145; 84484; 85025; 85610; 85730; 87040; 87507; 88304; 93005; 99285; C9803; J2405; J2543; U0003; U0005

== ENCOUNTER 2022-07-23 14:05 | Emergency (ER) | payer MEDICARE, SELFPAY ==
[2022-07-23] VITALS (8 sets, daily range): BP systolic 120–178; BP diastolic 86–114; PULSE 64–88; RESP 12–20; TEMP 36.4–36.7; O2SAT 97–99; BMI 31.0
--- NOTE | 2022-07-23 14:17 | HMH.EDGENADL ---
Discharge Plan Disposition Patient Disposition: Home, Self-Care Prescriptions Prescriptions: No Action diltiazem HCl 240 mg capsule,extended release 24hr 240 mg PO DAILY Label Comments: TAKE 1 CAPSULE BY MOUTH ONCE DAILY Farxiga 10 mg tablet 10 mg PO DAILY Label Comments: TAKE 1 TABLET BY MOUTH ONCE DAILY cholecalciferol (vitamin D3) 1,250 mcg (50,000 unit) capsule 1,250 mcg PO WEEKLY Xarelto 15 mg tablet 15 mg PO QPMWITHMEAL Label Comments: TAKE 1 TABLET BY MOUTH IN THE EVENING irbesartan 300 mg tablet 300 mg PO DAILY Label Comments: TAKE 1 TABLET BY MOUTH ONCE DAILY FOR 90 DAYS metoprolol tartrate 50 mg tablet 150 mg PO BID Label Comments: TAKE 3 TABLETS BY MOUTH TWICE DAILY FOR 90 DAYS minoxidil 2.5 mg tablet 5 mg PO DAILY psyllium Packet 1 packet PO TID Rx Instructions: mix into at least 8 oz of water or juice before administering hydrocodone-acetaminophen 5-325 mg Tablet 1 - 2 tab PO Q6H PRN (Reason: Pain) Qty: 21 0RF levothyroxine 125 MCG tablet 125 mcg PO DAILY fenofibrate 160 MG tablet 160 mg PO DAILY allopurinol 100 MG tablet 200 mg PO DAILY metformin 1,000 MG tablet 1,000 mg PO BID atorvastatin 40 MG tablet 40 mg PO HS tamsulosin 0.4 mg capsule 0.4 mg PO DAILY Referrals Follow up/Referrals: Gavin Charles MD [Primary Care Provider] - See instructions Ezra Lyon MD [Staff Physician] - See instructions (Further evaluation for heart failure.) Activity Restrictions/Add. Instructions Additional Instructions/Restrictions: Your chronic shortness of breath with mild lower extremity edema elevated BNP and pleural effusions on your CT scan are highly suggestive of a diagnosis of heart failure. There is no evidence of any pulmonary embolism which is a blood clot on your CT scan today. Given that you are in no distress feel well requiring no oxygen we chose to not put to the hospital currently. I spoke to Dr. Lyon about this prior to your CAT scan results and he was okay with you following up if you are stable next Tuesday. Please call make an appointment at your next available convenience and follow-up with him in clinic to have a more comprehensive evaluation of a probable diagnosis of heart failure. Clinical Impressions Clinical Impression: Dyspnea, Elevated brain natriuretic peptide (BNP) level, Pleural effusion Discharge ED Provider: Ash Pinto General Adult HPI General Chief complaint: Shortness of Breath/Dyspnea Stated complaint: post op 07/12, high BP, soa Time Seen by Provider: 07/23/22 14:17 History of Present Illness HPI narrative: Patient is a 76-year-old male who is 10 days status postcholecystectomy here with dyspnea and hypoxemia. I spoke with Dr. Lyon who in consultation with Dr. Gallo sent the patient to the emergency department to be evaluated for pulmonary embolism. Patient's been dyspneic actually prior to this surgery states he is not much different since the surgery. He has a sleep study that is upcoming they are concerned about sleep apnea. He has been wearing a home pulse oximeter which shows hypoxia during sleep which has gotten down to 81% and other times in the mid 80s but he is normal during the day. He currently has mild symptoms does state that he has been dyspneic but cannot directly attribute this to recent postoperative changes. Denies any significant abdominal pain no fevers or chills. His who is with him does state he has had increasing lower extremity edema no history of heart failure. Related Data Home Medications Medication Instructions Recorded Confirmed allopurinol 100 mg tablet 200 mg PO DAILY gout 09/01/19 07/10/22 atorvastatin 40 mg tablet 40 mg PO HS Cholesterol 09/01/19 07/10/22 fenofibrate 160 mg tablet 160 mg PO DAILY Cholesterol 09/01/19 07/10/22 levothyroxine 125 mcg tablet 125 mcg PO DAILY thyroid 05
--- NOTE | 2022-07-23 14:50 | CT_ITS ---
FINAL REPORT TECHNIQUE: Thin section axial CT images were performed from the lung apices to the upper abdomen after the administration of IV contrast. 3-D and MIP reconstructions performed. This study was performed with techniques to keep radiation doses as low as reasonably achievable (ALARA). Individualized dose reduction techniques using automated exposure control or adjustment of mA and/or kV according to the patient''s size were employed. CLINICAL HISTORY: dyspnea, following surgery COMPARISON: 07/10/2022 FINDINGS: There is no evidence for pulmonary embolism. The thoracic aorta is patent without evidence of dissection. The mediastinal vasculature is adequately opacified. Multiple mediastinal lymph nodes are identified. Right paratracheal lymph node measures up to 2.2 cm. AP window lymph node measures up to 1.7 cm. Subcarinal lymph node measures 2.0 cm. There is trace pericardial effusion. There is a right pleural effusion layering up to 4.5 cm in depth, larger than previous. Small left pleural effusion is identified. There is mild consolidation at the right base. Limited images of the upper abdomen demonstrates a trace amount of ascites. IMPRESSION: No evidence of pulmonary embolism. Moderate mediastinal adenopathy, similar to previous with increased size and moderate right effusion and small left effusion. Reviewed, Interpreted and Dictated by Craig Falk MD Transcribed by Ana Maria Samuel Authenticated and [facility] [place] [place]
[2022-07-23 15:07] LABS: Alanine Aminotransferase 27 U/L (12-78); Albumin Level 4.1 g/dl (3.5-5.0); Albumin/Globulin Ratio 1.5 (1.1-1.8); Alkaline Phosphatase 35 U/L (38-126); Anion Gap 11.9 mEq/L (5-15); Aspartate Amino Transferase 35 U/L (17-59); Bilirubin,Total 0.6 mg/dl (0.2-1.3); Blood Urea Nitrogen 29 mg/dl (9-20); Carbon Dioxide 26 mmol/L (22.0-30.0); Chloride 106 mmol/L (98-107); Creatinine Clearance Estimated 56 mL/min (50-200); Estimated Glomerular Filt Rate 45 ml/min (>60); GFR (African American) 55 ML/MIN (>60); Globulin 2.8 g/dL (1.3-3.2); Glucose 123 mg/dl (74-100); Potassium 3.9 mmoL/L (3.5-5.1); Sodium 140 mmol/L (136-145); Total Protein,Serum 6.9 g/dl (6.3-8.2)
[2022-07-23 15:10] LABS: Basophils # 0.1 K/mm3 (0-0.2); Basophils % 0.6 % (0.1-2.0); Eosinophils # 0.6 K/mm3 (0.0-0.4); Hematocrit 41.1 % (42.0-52.0); Lymphocytes # 1.3 K/mm3 (0.7-4.5); Lymphocytes % 13.7 % (10-50); Mean Corpuscular HGB Conc 31.7 g/dL (31.8-35.4); Mean Corpuscular Hemoglobin 28.4 pg (27.0-31.2); Mean Corpuscular Volume 89.7 fl (80-94); Monocytes # 0.6 K/mm3 (0.1-1.0); Neutrophils # 6.8 K/mm3 (1.8-7.8); Neutrophils % 73.7 % (37.0-80.0); Platelet Count 459 K/mm3 (142-424); Red Blood Count 4.58 M/mm3 (4.60-6.20); Red Cell Distribution Width 16.3 % (11.5-17.5); White Blood Count 9.3 K/mm3 (4.8-10.8)
[2022-07-23 15:16] LABS: NT Pro Brain Natriuretic Pep. 6460 pg/mL (0-450)
[2022-07-23 15:20] LABS: Troponin I < 0.01 ng/ml (0.00-0.034)
--- NOTE | 2022-07-23 17:04 | ECG_ITS ---
APPROVED REPORT Exam: Resting ECG HR:67 bpm ECG Measurements Heart Rate 67 AXES QRSd 103 QRS -7 QT 388 T 86 QTc 403 Conclusion ATRIAL FIBRILLATION LOW QRS VOLTAGE IN EXTREMITY LEADS [QRS DEFLECTION < 0.5 mV IN LIMB LEADS] ABNORMAL RHYTHM ECG UNCONFIRMED REPORT Electronically signed by : Aguila Cook MD 07/24/2022 20:29:33
== END 2022-07-23 17:14 | disposition home or self-care (01) ==
PROVIDERS: Emergency Provider Student in an Organized Health Care Education/Training Program; PCP Family Medicine
DX: R06.02 Shortness of breath (principal); J90 Pleural effusion, not elsewhere classified; R79.89 Other specified abnormal findings of blood chemistry; I10 Essential (primary) hypertension
CPT/HCPCS: G0463; 71275; 80053; 83880; 84484; 85025; 93005; 99285; Q9967

== ENCOUNTER → 2022-07-29 10:26 | Outpatient (CLI) | payer MEDICARE, SELFPAY | PROVIDERS: PCP Family Medicine; Visit Provider Family Medicine | DX: G47.10 Hypersomnia, unspecified (principal); R06.83 Snoring; I10 Essential (primary) hypertension; E66.3 Overweight; Z68.28 Body mass index [BMI] 28.0-28.9, adult; G47.33 Obstructive sleep apnea (adult) (pediatric) | CPT/HCPCS: G0399 ==

== ENCOUNTER → 2022-11-22 12:13 | Outpatient (CLI) | payer MEDICARE, SELFPAY ==
[2022-11-22 13:37] LABS: Anion Gap 10.5 mEq/L (5-15); Blood Urea Nitrogen 32 mg/dl (9-20); Calcium 9.3 mg/dl (8.4-10.2); Carbon Dioxide 29 mmol/L (22.0-30.0); Chloride 105 mmol/L (98-107); Estimated Glomerular Filt Rate 45 ml/min (>60); GFR (African American) 55 ML/MIN (>60); Glucose 241 mg/dl (74-100); Magnesium 1.9 mg/dl (1.6-2.3); Potassium 4.5 mmoL/L (3.5-5.1); Sodium 140 mmol/L (136-145)
== END ==
PROVIDERS: PCP Family Medicine; Visit Provider Nurse Practitioner
DX: I10 Essential (primary) hypertension (principal)
CPT/HCPCS: 36415; 80048; 83735

== ENCOUNTER → 2023-03-29 11:56 | Outpatient (CLI) | payer MEDICARE, SELFPAY ==
[2023-03-29 12:25] LABS: Basophils % 0.2 % (0.1-2.0); Eosinophils # 0.4 K/mm3 (0.0-0.4); Eosinophils % 3.3 % (0.1-12.0); Hematocrit 41.7 % (42.0-52.0); Hemoglobin 13.5 g/dL (14.1-18.0); Lymphocytes # 1.3 K/mm3 (0.7-4.5); Lymphocytes % 11.8 % (10-50); Mean Corpuscular HGB Conc 32.4 g/dL (31.8-35.4); Mean Corpuscular Hemoglobin 31.7 pg (27.0-31.2); Mean Corpuscular Volume 97.7 fl (80-94); Mean Platelet Volume 8.9 fl (7.4-10.4); Monocytes # 0.5 K/mm3 (0.1-1.0); Monocytes % 4.8 % (1.7-9.3); Neutrophils # 8.6 K/mm3 (1.8-7.8); Neutrophils % 79.8 % (37.0-80.0); Platelet Count 219 K/mm3 (142-424); Red Blood Count 4.27 M/mm3 (4.60-6.20); Red Cell Distribution Width 16.5 % (11.5-17.5); White Blood Count 10.8 K/mm3 (4.8-10.8)
[2023-03-29 14:16] LABS: Alanine Aminotransferase 25 U/L (12-78); Albumin Level 4.4 g/dl (3.5-5.0); Alkaline Phosphatase 76 U/L (38-126); Anion Gap 16.5 mEq/L (5-15); Aspartate Amino Transferase 23 U/L (17-59); Bilirubin,Direct 0.2 mg/dl (0.0-0.4); Bilirubin,Indirect 0.4 mg/dL (0.0-0.9); Bilirubin,Total 0.6 mg/dl (0.2-1.3); Bilirubin,Unconjugated 0.4 mg/dL (0.0-1.1); Blood Urea Nitrogen 49 mg/dl (9-20); Calcium 8.9 mg/dl (8.4-10.2); Carbon Dioxide 22 mmol/L (22.0-30.0); Chloride 105 mmol/L (98-107); Cholesterol 113 mg/dl (140-200); Estimated Glomerular Filt Rate 28 ml/min (>60); GFR (African American) 33 ML/MIN (>60); Glucose 177 mg/dl (74-100); HDL Cholesterol 28 mg/dl (40-60); Magnesium 2.1 mg/dl (1.6-2.3); Potassium 5.5 mmoL/L (3.5-5.1); Sodium 138 mmol/L (136-145); Total Protein,Serum 7.4 g/dl (6.3-8.2); Triglycerides 145 mg/dl (30-150); VLDL Cholesterol 29 mg/dL (0-40)
[2023-03-29 14:27] LABS: Direct LDL Cholesterol 60.53 mg/dL (100-129)
[2023-03-29 14:32] LABS: Free T4 (Free Thyroxine) 1.48 ng/dl (0.78-2.19)
[2023-03-29 14:45] LABS: Thyroid Stimulating Hormone 0.67 uIU/mL (0.465-4.68)
== END ==
PROVIDERS: PCP Family Medicine; Visit Provider Internal Medicine
DX: I48.20 Chronic atrial fibrillation, unspecified; I48.91 Unspecified atrial fibrillation; R53.1 Weakness; R53.83 Other fatigue; E11.69 Type 2 diabetes mellitus with other specified complication; Z79.84 Long term (current) use of oral hypoglycemic drugs; Z79.899 Other long term (current) drug therapy
CPT/HCPCS: 36415; 80048; 80061; 80076; 83735; 84439; 84443; 85025

== ENCOUNTER → 2023-04-05 09:23 | Outpatient (CLI) | payer MEDICARE, SELFPAY ==
[2023-04-05 10:57] LABS: Chloride 108 mmol/L (98-107)
[2023-04-05 10:58] LABS: Potassium 5.3 mmoL/L (3.5-5.1); Sodium 139 mmol/L (136-145)
[2023-04-05 11:00] LABS: Blood Urea Nitrogen 30 mg/dl (9-20); Estimated Glomerular Filt Rate 34 ml/min (>60); GFR (African American) 42 ML/MIN (>60)
[2023-04-05 11:01] LABS: Anion Gap 12.3 mEq/L (5-15); Calcium 8.9 mg/dl (8.4-10.2); Carbon Dioxide 24 mmol/L (22.0-30.0); Glucose 170 mg/dl (74-100)
== END ==
PROVIDERS: PCP Family Medicine; Visit Provider Internal Medicine
DX: E86.0 Dehydration (principal)
CPT/HCPCS: 36415; 80048

== ENCOUNTER → 2023-04-07 13:24 | Outpatient (CLI) | payer MEDICARE, SELFPAY ==
--- NOTE | 2023-04-07 13:25 | CA_ITS ---
APPROVED REPORT EXAM: Comprehensive 2D, Doppler, and color-flow Echocardiogram Voltage Tester: Benita Clayton RCS, RVS Ht: 5 ft 9 in Wt: 207lbs BSA: 2.10 BP: 114/78 mmHg Rhythm: Bradycardia Indications: Fatigue, afib, Diastolic dysfunction, Murmurs,HTN, DM, ex-smoker Echo Enhancing Agent Comments: Bradycardia 34-37bpm with pauses 2D Dimensions IVSd 1.16 cm M: 0.6-1.2 LVEF (Visual) 69.50 % PWd 1.40 cm M: 0.6 - 1.2 LA Volume 105.10 mL LVDd 5.68 cm M: 4.2 - 5.9 LA Volume Index 50.008564 mL/m2 (M/F) 16-34 LVDs 3.43 cm M: 2.5 - 4.0 EF AP4 45.20 % Aortic Root 3.09 cm M: 3.1 - 3.7 GL Strain -15.4 % Left Atrium 4.50 cm M: 3.0 - 4.0 RVID Base (AP4) 4.15 cm (M/F) 2.5-4.1 LVOT 1.96 cm (M/F) 1.5-2.5 M-Mode Dimensions RVDd 1.94 cm (0.9-2.6) LVDd 5.68 cm (3.5-5.7) Ao Diam 3.11 cm (2.0-3.7) LVDs 3.74 cm (3.5-5.7) IVSd 1.18 cm (0.6-1.1) PWd 1.14 cm (0.6-1.1) EF (Teich) 68.60% EPSs 0.89 cm FS 39.27% EDV (Teich) 189.70 mL TAPSE 2.04 (<1.7) ESV (Teich) 59.60 mL LV Diastology E Decel Time 173 (160-240 msec) E/A Ratio 6.53 MED E' 7.9 (>= 7 cm/sec) MED A' 2.10 cm/s E'/MED E' Ratio 16.46 (<= 14) LAT E' 9.3 (>= 10 cm/sec) LAT A' 3.10 cm/s E/LAT E' Ratio 13.98 (<= 14) Aortic Valve LVOT Max 95.0 (70-110 cm/s) TAE Index 0.74 cm2/m2 LVOT VTI 22.16 cm AoV Peak Jorge Alberto. 197.0 (50-130 cm/s) AO Mean GR. 7.80 (<5 mmHg) AO VTI 43.2 (18-25 cm) TAE (VTI) 1.55 (2.5-4.5 cm2) Mitral Valve MV E Max Jorge Alberto. 130.0 (40-130 cm/s) MV A Velocity 20.0 (40-130 cm/s) E/A Ratio 6.53 MV Decel. Time 173 (160-240 ms) Tricuspid Valve TR P. Velocity 214.00 cm/s RAP Estimate 10.00 mmHg RVSP 28.30 mmHg Left Ventricle The left ventricle is normal size. The left ventricular systolic function is normal. The left ventricular ejection fraction is within the normal range. There is normal left ventricular wall thickness. There is normal LV segmental wall motion. Diastolic function is indeterminate due to atrial fibrillation. LVEF is 55%. Right Ventricle The right ventricle is normal size. The right ventricular systolic function is normal. Atria The left atrium is moderately dilated. The right atrium is mildly dilated. Aortic Valve The aortic valve is mildly thickened. There is aortic valve sclerosis, but no evidence of stenosis. Mild aortic regurgitation. Mitral Valve The mitral valve leaflets are mildly thickened. No evidence of mitral valve stenosis. Mild mitral regurgitation. Tricuspid Valve The tricuspid valve leaflets are thin and pliable. Mild tricuspid regurgitation. RVSP is 25-30 mmHg. Pulmonic Valve The pulmonary valve is normal in structure. Mild pulmonic regurgitation. Great Vessels The aortic root is normal in size. The ascending aorta is mildly dilated, measuring 3.9 cm in diameter. IVC is normal in size and collapses >50% with inspiration. Pericardium There is no pericardial effusion. Other Information Study Quality: Technically Difficult Conclusion Technically difficult study due to poor acoustic windows. Normal biventricular systolic function. Biatrial dilation. Mild AI, mild MR, mild TR. Mildly dilated ascending aorta 3.9 cm. Of note, the patient is in atrial fibrillation with profound bradycardia (HR=30 bpm) and sinus pauses during the acquisition of the study images. Electronically signed by : Eleanor De León MD 04/07/2023 23:59:50
== END ==
PROVIDERS: PCP Family Medicine; Visit Provider Internal Medicine
DX: E78.5 Hyperlipidemia, unspecified (principal); I10 Essential (primary) hypertension; I48.20 Chronic atrial fibrillation, unspecified; I48.91 Unspecified atrial fibrillation; R06.00 Dyspnea, unspecified; R94.31 Abnormal electrocardiogram [ECG] [EKG]
CPT/HCPCS: 93306

== ENCOUNTER 2023-04-07 15:18 | Observation (INO) | payer MEDICARE, SELFPAY ==
--- NOTE | 2023-04-07 15:24 | EXP.CARD.CON ---
History of Present Illness History of Present Illness Consult date: 04/07/23 Requesting physician: Bienvenido Moreno Chief complaint: Symptomatic bradycardia History of present illness: 77-year-old white male with past medical history of A-fib on Xarelto, hypertension, diastolic dysfunction, hyperlipidemia, diabetes mellitus type 2, obstructive sleep apnea and recent MARCUS presents to office from echo lab with complaints of symptomatic bradycardia. Patient reports generalized weakness, fatigue, lightheaded and dizziness with activity times a few weeks. Of note patient is on metoprolol tartrate 100 mg p.o. twice daily and diltiazem 360 mg p.o. daily for rate control secondary to A-fib. Patient was in echo lab today for evaluation and heart rate was noted to be in the 20s. He was sent to cardiology clinic for further evaluation. Upon presentation to cardiology clinic EKG shows A-fib with a slow ventricular response of 49 bpm. Patient denies chest pain, shortness of breath, syncope or lower extremity edema. Echocardiogram was completed and shows an preserved ejection fraction with diastolic dysfunction present. Official read is pending. Patient will be admitted for symptomatic bradycardia and observed over the evening. Patient was recently diagnosed with an MARCUS and irbesartan, Lasix and Aldactone are currently on hold. [facility] Disclaimer: The information contained in this section may have been updated after the patient was seen, as this information can be updated by other users. Medical History Atrial fibrillation BPH (benign prostatic hyperplasia) Calculus of kidney Former smoker Hyperlipidemia Hypertension Hypothyroidism Normal colonoscopy Pancreatitis Right ureteral calculus Stage 3b chronic kidney disease (CKD) Type 2 diabetes mellitus Surgical History Hx laparoscopic cholecystectomy S/P ureteral stent placement Family History Mother Hypertension Father Heart disease Social History Smoking Status: Former smoker alcohol intake: never substance use type: denies use current occupational status: retired and other Travel in the last 8 weeks: None adopted: No caregiver/support person: Yes (SPOUSE) foster care: No household members: spouse housing: house lives independently: Yes marital status: education level: college service: Yes alf: No current occupational exposures/hazards: No (RETIRED) caffeine: Yes Review of Systems Review of Systems Review of systems:: pertinent systems reviewed and negative unless documented below Constitutional Constitutional: Reports fatigue and Reports weakness *Neurologic Neurologic: Reports weakness Endocrine Endocrine: Reports fatigue Exam Constitutional Constitutional: no acute distress *Routine Respiratory Exam Respiratory: Present CTA bilaterally and symmetric chest movement *Routine Cardiovascular Exam Cardiovascular: Present RRR, Normal S1 and Normal S2 *Routine Abdominal Exam Abdominal: Present soft and normoactive bowel sounds; Absent tenderness *Routine Extremities Exam Extremities: Present full ROM and normal capillary refill; Absent edema *Routine Skin Exam Skin: Present intact, dry and warm Detailed Neck Exam: Thyroids Thyroid: Absent bruit Meds Home Medications and Allergies Home Medications Medication Instructions Recorded Confirmed Type allopurinol 100 mg tablet 200 mg PO DAILY gout 09/01/19 04/07/23 History levothyroxine 125 mcg tablet 125 mcg PO DAILY thyroid 09/01/19 04/07/23 History cholecalciferol (vitamin D3) 1,250 1,250 mcg PO WEEKLY Supplement 01/06/22 04/07/23 History mcg (50,000 unit) capsule tamsulosin 0.4 mg capsule 0.4 mg PO DAILY prostate 01/06/22 04/07/23 History atorvastatin 40 m
--- NOTE | 2023-04-07 15:42 | EXP.HP ---
History of Present Illness *Admission Date: 04/07/23 *Reason for visit:: bradycardia *History of present illness: 77-year-old white male with past medical history of A-fib on Xarelto, hypertension, diastolic dysfunction, hyperlipidemia, diabetes mellitus type 2, obstructive sleep apnea and recent MARCUS presents to office from echo lab with complaints of symptomatic bradycardia. Patient reports generalized weakness, fatigue, lightheaded and dizziness with activity times a few weeks. Of note patient is on metoprolol tartrate 100 mg p.o. twice daily and diltiazem 360 mg p.o. daily for rate control secondary to A-fib. Patient was in echo lab today for evaluation and heart rate was noted to be in the 20s. He was sent to cardiology clinic for further evaluation. Upon presentation to cardiology clinic EKG shows A-fib with a slow ventricular response of 49 bpm. Patient denies chest pain, shortness of breath, syncope or lower extremity edema. Echocardiogram was completed and shows an preserved ejection fraction with diastolic dysfunction present. Official read is pending. Patient will be admitted for symptomatic bradycardia and observed over the evening. Patient was recently diagnosed with an MARCUS and irbesartan, Lasix and Aldactone are currently on hold. (above as per cardiology) [facility] Disclaimer: The information contained in this section may have been updated after the patient was seen, as this information can be updated by other users. Medical History Atrial fibrillation BPH (benign prostatic hyperplasia) Calculus of kidney Former smoker Hyperlipidemia Hypertension Hypothyroidism Normal colonoscopy Pancreatitis Right ureteral calculus Stage 3b chronic kidney disease (CKD) Type 2 diabetes mellitus Surgical History Hx laparoscopic cholecystectomy S/P ureteral stent placement Family History Heart disease Father Hypertension Mother Social History (Updated 04/07/23 @ 16:23 by Taty Marquez RN) Smoking Status: Former smoker alcohol intake: never substance use type: denies use current occupational status: retired and other Travel in the last 8 weeks: None adopted: No caregiver/support person: Yes (SPOUSE) foster care: No household members: spouse housing: house lives independently: Yes marital status: education level: college service: Yes senior care: No current occupational exposures/hazards: No (RETIRED) caffeine: Yes Review of Systems Constitutional Constitutional: Denies body ache(s), Denies chills, Denies fever(s), Denies headache(s) and Reports weakness Eyes Eyes: Denies blurry vision and Denies diplopia ENT Ears, Nose, Mouth, and Throat: Denies headache(s), Denies nasal congestion, Denies sore throat and Reports vertigo *Cardiovascular Cardiovascular: Denies chest pain, Denies chest pain at rest, Denies dyspnea, Reports lightheadedness and Reports slow heart rate *Respiratory Respiratory: Denies cough and Denies dyspnea *Gastrointestinal Gastrointestinal: Denies abdominal pain, Denies loose stools, Denies nausea and Denies vomiting *Genitourinary Genitourinary: Denies difficulty urinating and Denies dysuria *Musculoskeletal Musculoskeletal: Denies arthralgias and Denies back pain Integumentary/Breasts Skin/Breast: Reports sores (abrasion on the right foot from recent pedicure) *Neurologic Neurologic: Denies headache(s), Reports vertigo and Reports weakness Meds Home Medications and Allergies Home Medications Medication Instructions Recorded Confirmed Type allopurinol 100 mg tablet 200 mg PO DAILY gout 09/01/19 04/07/23 History levothyroxine 125 mcg tablet 125 mcg PO DAILY thyroid 09/01/19 04/07/23 History cholecalciferol (vitamin D3) 1,250 1,250 mcg PO WEEKLY Supplement 01/06/22 04/07/23 History m
--- NOTE | 2023-04-07 15:47 | HMH.PHAINT1 ---
Pharmacy Intervention Comments: Med reconciliation completed using external fill history and office visit list. Most recent office visit shows change of metformin 1000 mg BID to 500 mg BID and metoprolol tartrate 150 mg BID to 100 mg BID.
[2023-04-07 15:54] LABS: Basophils % 0.3 % (0.1-2.0); Eosinophils # 0.3 K/mm3 (0.0-0.4); Hematocrit 38.2 % (42.0-52.0); Hemoglobin 12.4 g/dL (14.1-18.0); Lymphocytes # 1.8 K/mm3 (0.7-4.5); Lymphocytes % 16.7 % (10-50); Mean Corpuscular HGB Conc 32.5 g/dL (31.8-35.4); Mean Corpuscular Hemoglobin 30.9 pg (27.0-31.2); Mean Corpuscular Volume 94.9 fl (80-94); Mean Platelet Volume 8.9 fl (7.4-10.4); Monocytes # 0.7 K/mm3 (0.1-1.0); Monocytes % 6.1 % (1.7-9.3); Neutrophils # 8.1 K/mm3 (1.8-7.8); Neutrophils % 73.9 % (37.0-80.0); Platelet Count 214 K/mm3 (142-424); Red Blood Count 4.02 M/mm3 (4.60-6.20); Red Cell Distribution Width 16.3 % (11.5-17.5)
[2023-04-07 15:58] VITALS: BP 141/79; PULSE 49; RESP 19; TEMP 36.6; O2SAT 98; BMI 29.4
[2023-04-07 16:00] VITALS: PULSE 50
[2023-04-07 16:25] LABS: Chloride 109 mmol/L (98-107)
[2023-04-07 16:28] LABS: Alanine Aminotransferase 29 U/L (12-78); Albumin Level 4.4 g/dl (3.5-5.0); Albumin/Globulin Ratio 1.4 (1.1-1.8); Alkaline Phosphatase 71 U/L (38-126); Aspartate Amino Transferase 27 U/L (17-59); Bilirubin,Total 0.5 mg/dl (0.2-1.3); Blood Urea Nitrogen 34 mg/dl (9-20); Calcium 8.8 mg/dl (8.4-10.2); Carbon Dioxide 23 mmol/L (22.0-30.0); Creatinine Clearance Estimated 38 mL/min (50-200); Estimated Glomerular Filt Rate 31 ml/min (>60); GFR (African American) 37 ML/MIN (>60); Globulin 3.1 g/dL (1.3-3.2); Glucose 129 mg/dl (74-100); Total Protein,Serum 7.5 g/dl (6.3-8.2)
--- NOTE | 2023-04-07 18:02 | PC.NURSE ---
NEW ADMIT THIS SHIFT. NO COMPLAINTS SINCE ARRIVAL TO FLOOR. DENIES CHEST PAIN OR PRESSURE. CONTROLLED AFIB ON TELEMETRY.
[2023-04-07 18:09] LABS: Sodium 139 mmol/L (136-145)
[2023-04-07 20:00] VITALS: BP 159/88; PULSE 60; PULSE 67; RESP 17; TEMP 36.6; O2SAT 100
[2023-04-08] VITALS (7 sets, daily range): BP systolic 143–160; BP diastolic 79–92; PULSE 60–80; RESP 16–18; TEMP 36.6–37.2; O2SAT 97–98; BMI 29.4
--- NOTE | 2023-04-08 08:35 | EXP.ACUTE.PN ---
Subjective *Date: 04/08/23 *Time: 09:15 Interval history: Patient's heart rate has improved into the 60s this morning. He is concerned about continuing the metoprolol as he feels it has been dropping his heart rate too low and making him feel extremely fatigued and dizzy. He denies any dizziness or pain today other than in his foot where he has an abrasion from a pedicure. Medical Exam Vital signs and Labs for Last 24 Hours: Vital Signs Temp Pulse Pulse Resp BP Pulse Ox O2 Del Method 04/08/23 06:37 Room Air 04/08/23 05:00 Room Air 04/08/23 04:00 98.2 F 65 16 143/88 H 98 Room Air 04/08/23 04:00 60 04/07/23 21:00 Room Air 04/08/23 00:00 60 04/08/23 00:00 98.7 F 66 17 150/79 H 98 Room Air 04/07/23 20:00 60 04/07/23 20:00 97.9 F 67 17 159/88 H 100 Room Air 04/07/23 16:00 50 L 04/07/23 16:34 Room Air 04/07/23 15:58 97.8 F 49 L 19 141/79 H 98 Room Air Intake and Output 04/07/23 04/08/23 04/08/23 19:59 03:59 11:59 Intake Total 360 / 480 120 / 480 Output Total 0 / 0 0 / 0 0 / 0 Balance 360 / 480 120 / 480 0 / 480 Intake: Intake, Oral Amount 360 / 480 120 / 480 Output: Output, Urine Amount 0 / 0 0 / 0 0 / 0 Other: Number of Voids 0 Number of Unmeasured Voids 1 1 Weight 205 lb 4 oz 205 lb 6.4 oz Patient Weight 04/08/23 11:59 Weight 205 lb 6.4 oz Laboratory Results - last 24 hr 04/07/23 15:45: WBC 11.0 H, RBC 4.02 L, Hgb 12.4 L, Hct 38.2 L, MCV 94.9 H, MCH 30.9, MCHC 32.5, RDW 16.3, Plt Count 214, MPV 8.9, Neut % (Auto) 73.9, Lymph % (Auto) 16.7, [place] % (Auto) 6.1, Eos % (Auto) 3.0, Baso % (Auto) 0.3, Neut # (Auto) 8.1 H, Lymph # (Auto) 1.8, [place] # (Auto) 0.7, Eos # (Auto) 0.3, Baso # (Auto) 0.0, Sodium 139, Potassium 5.0, Chloride 109 H, Carbon Dioxide 23, Anion Gap 12.0, BUN 34 H, Creatinine 2.10 H, Estimated Creat Clear 38, Estimated GFR 31 L, Est GFR ( Amer) 37 L, Glucose 129 H, Calcium 8.8, Total Bilirubin 0.5, AST 27, ALT 29, Alkaline Phosphatase 71, Total Protein 7.5, Albumin 4.4, Globulin 3.1, Albumin/Globulin Ratio 1.4, TSH 1.10 I & O for Labs for Last 24 Hours: Intake & Output 04/05/23 04/06/23 04/07/23 04/08/23 11:59 11:59 11:59 11:59 Intake Total 480 / 480 Output Total 0 / 0 Balance 480 / 480 Weight 205 lb 6.4 oz Constitutional: Present no acute distress Respiratory: Present CTA bilaterally Cardiac: Present Reg Rate and Rhythm GI: Present soft; Absent distention, tenderness or guarding Extremities: Absent edema Skin: Present intact Neuro: Present alert and awake Assessment and Plan *Assessment and plan (1) Symptomatic bradycardia: Status: Acute Category: Medical Code(s): R00.1 - Bradycardia, unspecified (2) Hypertension: Status: Acute Qualifiers: Hypertension type: unspecified Qualified Code(s): I10 - Essential (primary) hypertension Category: Medical Code(s): I10 - Essential (primary) hypertension (3) Mild congestive heart failure: Status: Acute Category: Medical Code(s): I50.9 - Heart failure, unspecified (4) Hyperlipidemia: Status: Acute Qualifiers: Hyperlipidemia type: unspecified Qualified Code(s): E78.5 - Hyperlipidemia, unspecified Category: Medical Code(s): E78.5 - Hyperlipidemia, unspecified (5) Atrial fibrillation: Status: Acute Qualifiers: Atrial fibrillation type: unspecified chronic Qualified Code(s): I48.20 - Chronic atrial fibrillation, unspecified Category: Medical Code(s): I48.91 - Unspecified atrial fibrillation (6) Type 2 diabetes mellitus: Status: Acute Qualifiers: Diabetes mellitus complication status: with other specified complication 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
--- NOTE | 2023-04-08 08:55 | EXP.CARD.PN ---
Subjective Subjective Date: 04/08/23 Time: 08:00 Principal diagnosis: Symptomatic bradycardia Interval history: Patient reports he is feeling good this morning. Heart rate has improved to 72 bpm. Blood pressure is slightly elevated at 158/92. Morning labs reviewed showing a creatinine of 2.1. Exam Data for Last 24 hours Vital signs and Labs for Last 24 Hours: Temp Pulse Resp BP Pulse Ox O2 Del Method 98.9 F 72 18 158/92 H 97 Room Air 04/08/23 08:00 04/08/23 08:00 04/08/23 08:00 04/08/23 08:00 04/08/23 08:00 04/08/23 08:00 Laboratory Results - last 24 hr 04/07/23 15:45: WBC 11.0 H, RBC 4.02 L, Hgb 12.4 L, Hct 38.2 L, MCV 94.9 H, MCH 30.9, MCHC 32.5, RDW 16.3, Plt Count 214, MPV 8.9, Neut % (Auto) 73.9, Lymph % (Auto) 16.7, [place] % (Auto) 6.1, Eos % (Auto) 3.0, Baso % (Auto) 0.3, Neut # (Auto) 8.1 H, Lymph # (Auto) 1.8, [place] # (Auto) 0.7, Eos # (Auto) 0.3, Baso # (Auto) 0.0, Sodium 139, Potassium 5.0, Chloride 109 H, Carbon Dioxide 23, Anion Gap 12.0, BUN 34 H, Creatinine 2.10 H, Estimated Creat Clear 38, Estimated GFR 31 L, Est GFR ( Amer) 37 L, Glucose 129 H, Calcium 8.8, Total Bilirubin 0.5, AST 27, ALT 29, Alkaline Phosphatase 71, Total Protein 7.5, Albumin 4.4, Globulin 3.1, Albumin/Globulin Ratio 1.4, TSH 1.10 I & O for Last 24 hours: Intake & Output 04/05/23 04/06/23 04/07/23 04/08/23 23:59 23:59 23:59 23:59 Intake Total 360 / 480 120 / 120 Output Total 0 / 0 0 / 0 Balance 360 / 480 120 / 120 Weight 205 lb 4 oz 205 lb 6.4 oz Constitutional Constitutional: no acute distress *Routine Respiratory Exam Respiratory: Present CTA bilaterally and symmetric chest movement *Routine Cardiovascular Exam Cardiovascular: Present Normal S1 and Normal S2 Comments: afib *Routine Abdominal Exam Abdominal: Present soft and normoactive bowel sounds; Absent tenderness *Routine Extremities Exam Extremities: Present full ROM and normal capillary refill; Absent edema *Routine Skin Exam Skin: Present intact, dry and warm Detailed Neck Exam: Thyroids Thyroid: Absent bruit Progress Note: A&P Assessment and plan (1) Symptomatic bradycardia: Status: Acute (2) Hypertension: Status: Acute (3) Mild congestive heart failure: Status: Acute (4) Hyperlipidemia: Status: Acute (5) Atrial fibrillation: Status: Acute (6) Type 2 diabetes mellitus: Status: Acute (7) Heart failure with preserved ejection fraction: Status: Acute Assessment and Plan Assessment and Plan for All Diagnoses:: Symptomatic bradycardia -EKG shows A-fib with slow ventricular response of 49 bpm -Telemetry monitoring -Resume metoprolol tartrate 100 mg p.o. twice daily -Stop Dilt. 04/08/2023: Symptomatic bradycardia has resolved. Heart rate is now in the 60s to 70s. Will resume meds as listed above. Chronic A-fib Chadsvsasc score 5 -Rate controlling meds currently on hold due to symptomatic bradycardia see note above -Continue renal dose Xarelto 15 mg daily Chronic HFpEF NYHA I -No signs of volume overload at this time. Denies shortness of breath or lower extremity edema -Diuretics currently on hold due to recent MARCUS -Echocardiogram from 04/07/2023 shows a preserved ejection fraction and diastolic dysfunction. Official read is pending. Hypertension -Well-controlled. Irbesartan currently on hold Hyperlipidemia -LDL goal less than 100, continue statin Diabetes mellitus -Defer to primary service Recent MARCUS -Creatinine 1.9 on 04/05. Diuretics and irbesartan are currently on hold. Repeat labs yesterday reveals a creatinine of 2.1. Continue to hold irbesartan and diuretics CV summary 04/08/2023: Patient is stable this morning. Heart rate has improved to 60s to 70s. Patient request to stay in hospital for 1 more day since medications are being restarted today to make sure he does not become bradycardic again. Cardiology recommends restarting meds as outlined above. If rem
--- NOTE | 2023-04-08 15:18 | PC.NURSE ---
PT IS RESTING IN BED. ALERT AND ORIENTED X4. EATING AND DRINKING WELL. PT HAS AMBULATED IN THE YATES AND IN THE ROOM. CONTROLLED AFIB ON TELEMETRY. LUNG SOUNDS CLEAR. ABDOMEN SOFT/NON TENDER WITH ACTIVE BOWEL SOUNDS. VSS. WILL CONTINUE TO MONITOR.
--- NOTE | 2023-04-08 16:57 | EXP.ACUTE.PN ---
Subjective *Date: 04/08/23 *Time: 16:57 Interval history: Patient feels good and is anxious to go home. He has walking in the hallway without difficulty today. Telemetry shows HR in the 80's. Medical Exam Vital signs and Labs for Last 24 Hours: Vital Signs Temp Pulse Pulse Resp BP Pulse Ox O2 Del Method 04/08/23 15:33 97.9 F 77 18 160/88 H 98 Room Air 04/08/23 15:00 Room Air 04/08/23 12:40 Room Air 04/08/23 08:00 Room Air 04/08/23 11:00 Room Air 04/08/23 09:00 Room Air 04/08/23 08:14 80 04/08/23 08:00 98.9 F 72 18 158/92 H 97 Room Air 04/08/23 06:37 Room Air 04/08/23 05:00 Room Air 04/08/23 04:00 98.2 F 65 16 143/88 H 98 Room Air 04/08/23 04:00 60 04/07/23 21:00 Room Air 04/08/23 00:00 60 04/08/23 00:00 98.7 F 66 17 150/79 H 98 Room Air 04/07/23 20:00 60 04/07/23 20:00 97.9 F 67 17 159/88 H 100 Room Air Intake and Output 04/08/23 04/08/23 04/08/23 07:59 15:59 23:59 Intake Total 120 / 980 860 / 980 Output Total 0 / 0 0 / 0 Balance 120 / 980 860 / 980 Intake: Intake, Oral Amount 120 / 980 860 / 980 Output: Output, Urine Amount 0 / 0 0 / 0 Other: Number of Unmeasured Voids 1 1 Number of Bowel Movements 1 Weight 205 lb 6.4 oz Patient Weight 04/08/23 23:59 Weight 205 lb 6.4 oz Laboratory Results - last 24 hr 04/07/23 15:45: Sodium 139, Anion Gap 12.0, TSH 1.10 I & O for Labs for Last 24 Hours: Intake & Output 04/05/23 04/06/23 04/07/23 04/08/23 23:59 23:59 23:59 23:59 Intake Total 360 / 480 980 / 980 Output Total 0 / 0 0 / 0 Balance 360 / 480 980 / 980 Weight 205 lb 4 oz 205 lb 6.4 oz Assessment and Plan *Assessment and plan (1) Symptomatic bradycardia: Status: Acute Category: Medical Code(s): R00.1 - Bradycardia, unspecified (2) Hypertension: Status: Acute Qualifiers: Hypertension type: unspecified Qualified Code(s): I10 - Essential (primary) hypertension Category: Medical Code(s): I10 - Essential (primary) hypertension (3) Mild congestive heart failure: Status: Acute Category: Medical Code(s): I50.9 - Heart failure, unspecified (4) Hyperlipidemia: Status: Acute Qualifiers: Hyperlipidemia type: unspecified Qualified Code(s): E78.5 - Hyperlipidemia, unspecified Category: Medical Code(s): E78.5 - Hyperlipidemia, unspecified (5) Atrial fibrillation: Status: Acute Qualifiers: Atrial fibrillation type: unspecified chronic Qualified Code(s): I48.20 - Chronic atrial fibrillation, unspecified Category: Medical Code(s): I48.91 - Unspecified atrial fibrillation (6) Type 2 diabetes mellitus: Status: Acute Qualifiers: 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 Stop Diltiazem, continue Metoprolol at 100 mg twice daily, f/u with Cardiology on 04/11/23.
--- NOTE | 2023-04-11 16:47 | CARE MANAGER ---
Contacted patient related to hospital discharge. He states he is doing well. He followed up with cardiology today and they adjusted his medications again. Denies questions or concerns at this time. ROBBIE Her
--- NOTE | 2023-04-14 08:45 | EXP.DC.SUM ---
General Admission date:: 04/07/23 Discharge date: 04/08/23 HPI HPI HPI: 77-year-old white male with past medical history of A-fib on Xarelto, hypertension, diastolic dysfunction, hyperlipidemia, diabetes mellitus type 2, obstructive sleep apnea and recent MARCUS presents to office from echo lab with complaints of symptomatic bradycardia. Patient reports generalized weakness, fatigue, lightheaded and dizziness with activity times a few weeks. Of note patient is on metoprolol tartrate 100 mg p.o. twice daily and diltiazem 360 mg p.o. daily for rate control secondary to A-fib. Patient was in echo lab today for evaluation and heart rate was noted to be in the 20s. He was sent to cardiology clinic for further evaluation. Upon presentation to cardiology clinic EKG shows A-fib with a slow ventricular response of 49 bpm. Patient denies chest pain, shortness of breath, syncope or lower extremity edema. Echocardiogram was completed and shows an preserved ejection fraction with diastolic dysfunction present. Official read is pending. Patient will be admitted for symptomatic bradycardia and observed over the evening. Patient was recently diagnosed with an MARCUS and irbesartan, Lasix and Aldactone are currently on hold. (above as per cardiology) Hospital Course Hospital Course Hospital Course: The patient was admitted and cardiology wanted to hold his metoprolol and diltiazem overnight and monitor his heart rate on telemetry. Their plan was to resume his metoprolol the next morning and decrease his dose of diltiazem. They also held his diuretics and irbesartan. The patient's heart rate improved into the 60s while holding medication. Cardiology restarted his metoprolol and his diltiazem at a lower dose. By 04/08/2023 he was able to walk in the hallway without difficulty. His telemetry showed a heart rate in the 80s. He felt well and wanted to go home. His diltiazem was discontinued and he was continued on metoprolol 100 mg twice a day. His renal function did improve slightly. It was felt he was stable to be discharged home with close outpatient follow-up with cardiology. Exam Data for Last 24 hours Vital signs and Labs for Last 24 Hours: Temp Pulse Resp BP Pulse Ox O2 Del Method 97.9 F 70 18 160/88 H 98 Room Air 04/08/23 15:33 04/08/23 16:00 04/08/23 15:33 04/08/23 15:33 04/08/23 15:33 04/08/23 15:33 Narrative: Constitutional Constitutional: no acute distress *Routine HEENT Exam Head: Present normocephalic and atraumatic Eye: Present EOMI and PERRL ENT: Present mucous membranes moist *Routine Neck Exam Neck: Present supple and full ROM *Routine Respiratory Exam Respiratory: Present CTA bilaterally *Routine Cardiovascular Exam Cardiovascular: Present irregularly irregular (bradycardia) *Routine Abdominal Exam Abdominal: Present soft and normoactive bowel sounds; Absent tenderness *Routine Rectal Exam Rectal:: deferred *Routine Genitalia Exam Genitalia:: deferred *Routine Extremities Exam Extremities: Absent cyanosis, clubbing or edema *Routine Skin Exam Skin: Present intact and wounds (abrasion on the medial side of the right foot, no surrounding erythema); Absent erythema *Routine Neurological Exam Neurological: Present alert and oriented X3 DS: Diagnosis Discharge Diagnosis (1) Symptomatic bradycardia: Status: Acute Code(s): R00.1 - Bradycardia, unspecified (2) Hypertension: Status: Acute Code(s): I10 - Essential (primary) hypertension Qualifiers: Hypertension type: unspecified Qualified Code(s): I10 - Essential (primary) hypertension (3) Mild congestive heart failure: Status: Acute Code(s): I50.9 - Heart failure, unspecified (4) Hyperlipidemia: Status: Acute Code(s): E78.5 - Hyperlipidemia, unspecified Qualifiers: Hyperlipidemia type: unspecified Qualified Code(s): E78.5 - Hyperlipidemia, unspecified (5) Atrial fibrillati
== END 2023-04-08 17:43 | disposition home or self-care (01) ==
PROVIDERS: Nurse Practitioner; Admitting Provider Family Medicine; PCP Family Medicine; Visit Provider Family Medicine
DX: R00.1 Bradycardia, unspecified (principal); I48.91 Unspecified atrial fibrillation; Z79.01 Long term (current) use of anticoagulants; G47.33 Obstructive sleep apnea (adult) (pediatric); E11.22 Type 2 diabetes mellitus with diabetic chronic kidney disease; N18.32 Chronic kidney disease, stage 3b; E03.9 Hypothyroidism, unspecified; Z87.891 Personal history of nicotine dependence; N40.0 Benign prostatic hyperplasia without lower urinary tract symptoms; I13.0 Hypertensive heart and chronic kidney disease with heart failure and stage 1 through stage 4 chronic kidney disease, or unspecified chronic kidney disease; I11.0 Hypertensive heart disease with heart failure; I48.20 Chronic atrial fibrillation, unspecified; I50.32 Chronic diastolic (congestive) heart failure; Z79.84 Long term (current) use of oral hypoglycemic drugs
CPT/HCPCS: 36415; 80048; 80053; 84443; 85025; 93225; 93306; G0378

== ENCOUNTER → 2023-04-11 09:33 | Outpatient (CLI) | payer MEDICARE, SELFPAY ==
[2023-04-11 12:04] LABS: Chloride 107 mmol/L (98-107); Sodium 141 mmol/L (136-145)
[2023-04-11 12:07] LABS: Blood Urea Nitrogen 27 mg/dl (9-20); Estimated Glomerular Filt Rate 34 ml/min (>60); GFR (African American) 42 ML/MIN (>60); Glucose 144 mg/dl (74-100)
[2023-04-11 15:23] LABS: Carbon Dioxide 26 mmol/L (22.0-30.0)
== END ==
PROVIDERS: PCP Family Medicine; Visit Provider Nurse Practitioner
DX: E11.9 Type 2 diabetes mellitus without complications (principal); E78.5 Hyperlipidemia, unspecified; I48.20 Chronic atrial fibrillation, unspecified; I50.30 Unspecified diastolic (congestive) heart failure; R06.00 Dyspnea, unspecified; R94.31 Abnormal electrocardiogram [ECG] [EKG]; Z79.84 Long term (current) use of oral hypoglycemic drugs; Z87.891 Personal history of nicotine dependence; I11.0 Hypertensive heart disease with heart failure
CPT/HCPCS: 80048; 93270

== ENCOUNTER → 2023-04-18 10:43 | Outpatient (CLI) | payer MEDICARE, SELFPAY ==
[2023-04-18 14:45] LABS: Anion Gap 11.9 mEq/L (5-15); Blood Urea Nitrogen 31 mg/dl (9-20); Calcium 8.8 mg/dl (8.4-10.2); Carbon Dioxide 23 mmol/L (22.0-30.0); Chloride 110 mmol/L (98-107); Estimated Glomerular Filt Rate 34 ml/min (>60); GFR (African American) 42 ML/MIN (>60); Glucose 163 mg/dl (74-100); Potassium 4.9 mmoL/L (3.5-5.1); Sodium 140 mmol/L (136-145)
== END ==
PROVIDERS: PCP Family Medicine; Visit Provider Internal Medicine
DX: E11.9 Type 2 diabetes mellitus without complications (principal); E78.5 Hyperlipidemia, unspecified; I48.20 Chronic atrial fibrillation, unspecified; I50.30 Unspecified diastolic (congestive) heart failure; R94.31 Abnormal electrocardiogram [ECG] [EKG]; Z79.84 Long term (current) use of oral hypoglycemic drugs; I11.0 Hypertensive heart disease with heart failure; Z87.891 Personal history of nicotine dependence
CPT/HCPCS: 36415; 80048

== ENCOUNTER → 2023-07-12 20:19 | Outpatient (CLI) | payer MEDICARE, SELFPAY | LOC: SL 20:20 | PROVIDERS: PCP Family Medicine; Visit Provider Nurse Practitioner Family | DX: G47.31 Primary central sleep apnea (principal) | CPT/HCPCS: 95811 ==

== ENCOUNTER 2023-09-13 08:19 | Day surgery (SDC) | payer MEDICARE, SELFPAY ==
[2023-09-13 10:25] VITALS: BP 135/77; PULSE 69; RESP 18; TEMP 36.3; O2SAT 97; BMI 28.7
[2023-09-13 11:34] VITALS: BP 165/95; PULSE 65; RESP 18; TEMP 36.6; O2SAT 100
[2023-09-13 11:39] VITALS: BP 160/90; PULSE 71; RESP 18; TEMP 36.6; O2SAT 100
[2023-09-13 11:44] VITALS: BP 153/84; PULSE 67; RESP 18; TEMP 36.6; O2SAT 99
[2023-09-13 11:49] VITALS: BP 148/83; PULSE 73; RESP 18; TEMP 36.6; O2SAT 98
[2023-09-13 12:10] VITALS: BP 148/97; PULSE 81; RESP 18; TEMP 36.3; O2SAT 100
--- NOTE | 2023-09-13 12:34 | P.PCN_ITS ---
[facility] Procedure Note Date: 09/13/23 Time: 12:34 Procedure Note:: Preoperative Diagnosis: Cataract combined NS Cortical Complex [Left] Eye Postop diagnosis: same Operation: Microscopic phacoemulsification with intraocular lens implant [Left] Eye Specimen: None Blood Loss: None The patient was examined in the office with a complaint of poor vision in the [left] eye. The patient reports that this interferes with ADLs such as reading, watching TV and/or driving or the vision is like looking through a foggy haze and is very troubling. The patient was examined and found to have a visually significant cataract with best corrected vision of [20/400] by refraction and/or glare testing. Treatment options, risks and benefits were explained and the patient elected to have cataract surgery in an attempt to improve their vision. The patient had the eye anesthetized with topical tetracaine, the eye ways prepped and draped in the usual fashion for cataract surgery. A paracentesis and a temporal keratotomy were made. 0.2cc of 1% lidocaine PF was placed into the anterior chamber. And aqueous/viscoelastic exchange was done and a 360 degree capsulorexis was performed. Through hydrodissection and delineation with BSS on a cannula was done. The lens nucleus was phecoemulsified with CDE of [9.86]. Residual cortical material was removed using automated I&A The capsular bag was deepened with viscoelastica and a PCIOL was placed in the capsular bag with good centration and stability. Residual viscoelastic was removed using automated I&A. The keratotomy incision was hydrated with BSS on a cannula. The wound were checked and found to be water tight. IOP was checked digitally and adjusted as needed so as not to be too high. 1 drop of timolol 0.5%, ofloxacin, prednisolone acetate and ketorolac was instilled and eye shield taped over the eye. The patient was taken to recovery in good condition and will be seen postoperatively.
== END 2023-09-13 12:10 | disposition home or self-care (01) ==
PROVIDERS: PCP Family Medicine; Visit Provider Ophthalmology
PROC: (CPT 66984; principal; 2023-09-13 12:00)
DX: H25.12 Age-related nuclear cataract, left eye (principal); E11.3293 Type 2 diabetes mellitus with mild nonproliferative diabetic retinopathy without macular edema, bilateral; Z79.84 Long term (current) use of oral hypoglycemic drugs
CPT/HCPCS: 66984; V2632

== ENCOUNTER 2023-09-27 08:25 | Day surgery (SDC) | payer MEDICARE, SELFPAY ==
[2023-09-22 11:00] VITALS: BMI 29.7
[2023-09-27 09:15] VITALS: BP 161/95; PULSE 95; RESP 18; TEMP 36.7; O2SAT 97
[2023-09-27] MEDS: TETRACAINE 0.5% OPTH SOL 15ML OP ×3 (09:25→09:27)
[2023-09-27] MEDS: PHENYLEPHRINE 2.5% OPHTH SOLN 2ML OP ×3 (09:26→09:27)
[2023-09-27] MEDS: CYCLOPENTOLATE 2% OPHTH SOLN 2ML BOTTLE OP ×3 (09:26→09:27)
[2023-09-27 09:35] LABS: POC Glucose,Bedside 209 (70-110)
[2023-09-27 11:52] VITALS: BP 146/92; PULSE 65; RESP 18; TEMP 36.6; O2SAT 99
[2023-09-27] MEDS: MIDAZOLAM 2MG/2ML VIAL 1 MG IV (11:52)
[2023-09-27 11:57] VITALS: BP 149/86; PULSE 72; RESP 18; TEMP 36.6; O2SAT 97
[2023-09-27] MEDS: TOBRAMYCIN/DEX OPTH SUSP 2.5ML OP (12:00)
[2023-09-27] MEDS: LIDOCAINE 1% PF 2ML AMPULE 2 ML IJ (12:00)
[2023-09-27] MEDS: TIMOLOL 0.5% OPTH SOLN 5ML OP (12:00)
[2023-09-27 12:02] VITALS: BP 151/80; PULSE 58; RESP 18; TEMP 36.6; O2SAT 98
[2023-09-27 12:07] VITALS: BP 138/90; PULSE 64; RESP 18; TEMP 36.6; O2SAT 99
[2023-09-27 12:10] VITALS: BP 110/72; PULSE 82; RESP 18; TEMP 36.7; O2SAT 98
--- NOTE | 2023-10-11 13:22 | HMH.PROCNOTE ---
[facility] Procedure Note Date: 09/27/23 Time: 13:22 Procedure Note:: Preoperative Diagnosis: Cataract combined NS Cortical Complex [Right] Eye Postop diagnosis: same Operation: Microscopic phacoemulsification with intraocular lens implant [Right Eye Specimen: None Blood Loss: None The patient was examined in the office with a complaint of poor vision in the right] eye. The patient reports that this interferes with ADLs such as reading, watching TV and/or driving or the vision is like looking through a foggy haze and is very troubling. The patient was examined and found to have a visually significant cataract with best corrected vision of [20/60] by refraction and/or glare testing. Treatment options, risks and benefits were explained and the patient elected to have cataract surgery in an attempt to improve their vision. The patient had the eye anesthetized with topical tetracaine, the eye ways prepped and draped in the usual fashion for cataract surgery. A paracentesis and a temporal keratotomy were made. 0.2cc of 1% lidocaine PF was placed into the anterior chamber. And aqueous/viscoelastic exchange was done and a 360 degree capsulorexis was performed. Through hydrodissection and delineation with BSS on a cannula was done. The lens nucleus was phecoemulsified with CDE of [7.84]. Residual cortical material was removed using automated I&A The capsular bag was deepened with viscoelastica and a PCIOL was placed in the capsular bag with good centration and stability. Residual viscoelastic was removed using automated I&A. The keratotomy incision was hydrated with BSS on a cannula. The wound were checked and found to be water tight. IOP was checked digitally and adjusted as needed so as not to be too high. 1 drop of timolol 0.5%, ofloxacin, prednisolone acetate and ketorolac was instilled and eye shield taped over the eye. The patient was taken to recovery in good condition and will be seen postoperatively.
== END 2023-09-27 12:10 | disposition home or self-care (01) ==
PROVIDERS: PCP Family Medicine; Visit Provider Ophthalmology
PROC: (CPT 66984; principal; 2023-09-27 12:00)
DX: H25.11 Age-related nuclear cataract, right eye (principal); E11.3293 Type 2 diabetes mellitus with mild nonproliferative diabetic retinopathy without macular edema, bilateral; H53.8 Other visual disturbances; Z79.84 Long term (current) use of oral hypoglycemic drugs
CPT/HCPCS: 66984; 82962; V2632

== ENCOUNTER 2023-09-29 08:21 | Day surgery (SDC) | payer MEDICARE, SELFPAY ==
[2023-09-29 08:39] VITALS: BP 144/100; PULSE 84; RESP 16; TEMP 36.3; O2SAT 98; BMI 29.7
[2023-09-29 08:47] LABS: POC Glucose,Bedside 158 (70-110)
[2023-09-29] MEDS: LACTATED RINGERS 1000ML 1,000 ML 100 ML IV (08:48)
--- NOTE | 2023-09-29 09:30 | P.PNANES_ITS ---
[facility] Disclaimer: The information contained in this section may have been updated after the patient was seen, as this information can be updated by other users. Medical History Normal colonoscopy Stage 3b chronic kidney disease (CKD) Atrial fibrillation Former smoker New onset a-fib Type 2 diabetes mellitus BPH (benign prostatic hyperplasia) Hypothyroidism Hyperlipidemia Hypertension Right ureteral calculus Calculus of kidney Pancreatitis Surgical History Hx laparoscopic cholecystectomy S/P ureteral stent placement Family History Mother Hypertension Father Heart disease Social History Smoking Status: Former smoker alcohol intake: never substance use type: denies use current occupational status: retired and other Travel in the last 8 weeks: None adopted: No caregiver/support person: Yes (SPOUSE) foster care: No household members: spouse housing: house lives independently: Yes marital status: education level: college service: Yes long-term: No current occupational exposures/hazards: No (RETIRED) caffeine: No [facility] Anesthesia Checklist Patient Identification Patient Identification: Verbal (Name & ) Structural Data Admitted From: Home Planned Operative Procedure/s: colonoscopy Additional verifications Anesthesia Reactions: No Hx Blood Transfusions: No Blood Transfusion Reaction: No Airway Assessment Mallampati Score:: Class II C-Spine Mobility Assessed: Yes TMJ Mobility Assessed: Yes Dentition: Good Dentition Neurological Assessment Level of Consciousness: Awake, Alert and Appropriate Anesthesia Plan Anesthesia Risk discussed: Yes Anesthesia Plan: Verified ASA Class: III Anesthesia Type: MAC
[2023-09-29 09:31] VITALS: O2SAT 98
--- NOTE | 2023-09-29 09:47 | HMH.SCOPE ---
Procedure: Date: 09/29/23 Patient Date of :: 1945 Procedure Performed:: Screening colonoscopy Indications:: History of polyps Performing Provider:: Margaret Hernandez MD Referring Provider:: Ramez Charles MD Sedation:: Propofol Procedure:: After placing the patient in the left lateral decubitus position, the colonoscopy was gently inserted into the rectum and under direct visualization advanced to the cecum which was identified by transillumination in the right lower quadrant, identification of the ileocecal valve, appendiceal orifice, and cecal strap. Color, texture, mucosa, and anatomy of the colon were carefully examined with the scope. Findings:: Anal canal: normal Rectum: normal Sigmoid colon: normal without polyps or inflammatory changes Descending colon: normal without polyps or inflammatory changes Splenic flexure: normal Transverse colon: normal without polyps or inflammatory changes Hepatic flexure: normal Ascending colon: normal without polyps or inflammatory changes Cecum: normal Terminal ileum: not visualized Impression: Normal colonoscopy Recommendations:: Follow up examination in about FIVE years or so, sooner if clinically indicated in view of history of polyps Complications:: None Estimated blood obtained (mL): 0 Colonoscopy Component Colonoscopy Component Was a colonoscopy performed during today's procedure?: Yes Recommended follow up colonoscopy of at least 10 years?: No If no, follow up colonoscopy recommended in ___ years?: Five Reason for not recommending >/= 10 yr follow-up interval?: Hx of polyps
[2023-09-29 09:50] VITALS: BP 106/74; PULSE 70; RESP 18; TEMP 36.3; O2SAT 93
[2023-09-29 10:00] VITALS: BP 110/82; PULSE 68; RESP 18; O2SAT 94
[2023-09-29 10:10] VITALS: BP 118/82; PULSE 69; RESP 18; O2SAT 94
[2023-09-29 10:27] VITALS: BP 128/80; PULSE 76; RESP 18; O2SAT 99
== END 2023-09-29 10:25 | disposition home or self-care (01) ==
PROVIDERS: PCP Family Medicine; Visit Provider Internal Medicine Gastroenterology
PROC: (CPT G0105; principal; 2023-09-29 09:30)
DX: Z12.11 Encounter for screening for malignant neoplasm of colon (principal); Z86.010 Personal history of colon polyps; E11.9 Type 2 diabetes mellitus without complications
CPT/HCPCS: G0105; 82962; J7120

== ENCOUNTER 2023-11-28 13:43 | Outpatient (CLI) | payer MEDICARE, SELFPAY ==
[2023-11-28 14:01] LABS: Basophils % 0.4 % (0.1-2.0); Eosinophils # 0.4 K/mm3 (0.0-0.4); Eosinophils % 4.1 % (0.1-12.0); Hematocrit 41.7 % (42.0-52.0); Hemoglobin 13.7 g/dL (14.1-18.0); Lymphocytes # 1.7 K/mm3 (0.7-4.5); Lymphocytes % 17.3 % (10-50); Mean Corpuscular HGB Conc 32.9 g/dL (31.8-35.4); Mean Corpuscular Hemoglobin 31.3 pg (27.0-31.2); Mean Corpuscular Volume 95.1 fl (80-94); Monocytes # 0.5 K/mm3 (0.1-1.0); Monocytes % 5.1 % (1.7-9.3); Platelet Count 232 K/mm3 (142-424); Red Blood Count 4.38 M/mm3 (4.60-6.20); Red Cell Distribution Width 15.6 % (11.5-17.5); White Blood Count 9.6 K/mm3 (4.8-10.8)
[2023-11-28 15:08] LABS: Albumin Level 4.1 g/dl (3.5-5.0); Chloride 106 mmol/L (98-107); Sodium 139 mmol/L (136-145)
[2023-11-28 15:09] LABS: Potassium 4.7 mmoL/L (3.5-5.1)
[2023-11-28 15:11] LABS: Alanine Aminotransferase 25 U/L (12-78); Alkaline Phosphatase 89 U/L (38-126); Anion Gap 11.7 mEq/L (5-15); Aspartate Amino Transferase 24 U/L (17-59); Bilirubin,Indirect 0.6 mg/dL (0.0-0.9); Bilirubin,Total 0.6 mg/dl (0.2-1.3); Bilirubin,Unconjugated 0.6 mg/dL (0.0-1.1); Blood Urea Nitrogen 32 mg/dl (9-20); Carbon Dioxide 26 mmol/L (22.0-30.0); Cholesterol 133 mg/dl (140-200); Estimated Glomerular Filt Rate 32 ml/min (>60); GFR (African American) 39 ML/MIN (>60); Total Protein,Serum 6.8 g/dl (6.3-8.2); Triglycerides 227 mg/dl (30-150); VLDL Cholesterol 45 mg/dL (0-40)
[2023-11-28 15:12] LABS: Calcium 8.8 mg/dl (8.4-10.2); Chol/HDL Ratio 4.4 (1-3.5); Glucose 270 mg/dl (74-100); HDL Cholesterol 30 mg/dl (40-60); Magnesium 2.3 mg/dl (1.6-2.3)
[2023-11-28 15:22] LABS: Direct LDL Cholesterol 56.87 mg/dL (100-129)
[2023-11-28 15:43] LABS: Thyroid Stimulating Hormone 0.87 uIU/mL (0.465-4.68)
== END 2023-11-28 23:59 | disposition home or self-care (01) ==
LOC: LAB 13:44
PROVIDERS: PCP Family Medicine; Visit Provider Internal Medicine
DX: I48.20 Chronic atrial fibrillation, unspecified; E78.5 Hyperlipidemia, unspecified; E11.69 Type 2 diabetes mellitus with other specified complication; R94.31 Abnormal electrocardiogram [ECG] [EKG]; Z87.891 Personal history of nicotine dependence; I11.0 Hypertensive heart disease with heart failure; Z79.84 Long term (current) use of oral hypoglycemic drugs
CPT/HCPCS: 36415; 80048; 80061; 80076; 83735; 84439; 84443; 85025

== ENCOUNTER 2024-01-24 10:44 | Outpatient (CLI) | payer MEDICARE, SELFPAY ==
--- NOTE | 2024-01-24 10:50 | XR_ITS ---
FINAL REPORT CLINICAL HISTORY: PAIN COMPARISON: None FINDINGS: LEFT FOOT: Three views show no evidence of acute displaced fracture or dislocation of the visualized bony architecture. Osteopenia is present. A small calcaneal spur is identified. The joint spaces appear normal. IMPRESSION: Osteopenia without any acute bony abnormality identified. Reviewed, Interpreted and Dictated by Bienvenido Duron MD Transcribed by Alexandra Shoemaker Authenticated and [facility]
== END 2024-01-24 23:59 | disposition home or self-care (01) ==
LOC: RAD 10:45
PROVIDERS: PCP Family Medicine; Visit Provider Family Medicine
DX: M79.672 Pain in left foot (principal)
CPT/HCPCS: 73630

== ENCOUNTER 2024-05-31 10:21 | Outpatient (CLI) | payer MEDICARE, SELFPAY ==
[2024-05-31 10:45] LABS: Basophils % 0.5 % (0.1-2.0); Eosinophils # 0.4 K/mm3 (0.0-0.4); Eosinophils % 4.6 % (0.1-12.0); Hematocrit 42.1 % (42.0-52.0); Hemoglobin 14.2 g/dL (14.1-18.0); Lymphocytes # 1.3 K/mm3 (0.7-4.5); Lymphocytes % 14.8 % (10-50); Mean Corpuscular HGB Conc 33.7 g/dL (31.8-35.4); Mean Corpuscular Hemoglobin 30.5 pg (27.0-31.2); Mean Corpuscular Volume 90.3 fl (80-94); Mean Platelet Volume 10.6 fl (7.4-10.4); Monocytes # 0.7 K/mm3 (0.1-1.0); Monocytes % 7.5 % (1.7-9.3); Neutrophils # 6.4 K/mm3 (1.8-7.8); Neutrophils % 72.4 % (37.0-80.0); Platelet Count 222 K/mm3 (142-424); Red Blood Count 4.66 M/mm3 (4.60-6.20); Red Cell Distribution Width 14.2 % (11.5-17.5); White Blood Count 8.8 K/mm3 (4.8-10.8)
[2024-05-31 11:48] LABS: Chloride 98 mmol/L (98-107); Potassium 4.2 mmoL/L (3.5-5.1); Sodium 136 mmol/L (136-145)
[2024-05-31 11:50] LABS: Bilirubin,Unconjugated 0.7 mg/dL (0.0-1.1); Blood Urea Nitrogen 37 mg/dl (9-20); Estimated Glomerular Filt Rate 42 ml/min (>60); GFR (African American) 51 ML/MIN (>60)
[2024-05-31 11:51] LABS: Alanine Aminotransferase 28 U/L (12-78); Alkaline Phosphatase 100 U/L (38-126); Anion Gap 15.2 mEq/L (5-15); Aspartate Amino Transferase 28 U/L (17-59); Bilirubin,Direct 0.1 mg/dl (0.0-0.4); Bilirubin,Indirect 0.6 mg/dL (0.0-0.9); Bilirubin,Total 0.7 mg/dl (0.2-1.3); Carbon Dioxide 27 mmol/L (22.0-30.0); Chol/HDL Ratio 5.6 (1-3.5); Cholesterol 141 mg/dl (140-200); Glucose 279 mg/dl (74-100); HDL Cholesterol 25 mg/dl (40-60); Total Protein,Serum 6.7 g/dl (6.3-8.2); Triglycerides 261 mg/dl (30-150); VLDL Cholesterol 52 mg/dL (0-40)
[2024-05-31 11:58] LABS: Free T4 (Free Thyroxine) 1.62 ng/dl (0.78-2.19)
[2024-05-31 12:02] LABS: Direct LDL Cholesterol 65.85 mg/dL (100-129)
[2024-05-31 12:22] LABS: Thyroid Stimulating Hormone 1.77 uIU/mL (0.465-4.68)
== END 2024-05-31 23:59 | disposition home or self-care (01) ==
LOC: LAB 10:24
PROVIDERS: PCP Family Medicine; Visit Provider Internal Medicine
DX: I11.0 Hypertensive heart disease with heart failure (principal); I50.30 Unspecified diastolic (congestive) heart failure; I48.20 Chronic atrial fibrillation, unspecified; E78.5 Hyperlipidemia, unspecified; R94.31 Abnormal electrocardiogram [ECG] [EKG]; Z87.891 Personal history of nicotine dependence; E11.69 Type 2 diabetes mellitus with other specified complication; Z79.84 Long term (current) use of oral hypoglycemic drugs; Z79.85 Long-term (current) use of injectable non-insulin antidiabetic drugs
CPT/HCPCS: 36415; 80048; 80061; 80076; 83735; 84439; 84443; 85025

== ENCOUNTER 2024-06-05 12:36 | Outpatient (CLI) | payer MEDICARE, SELFPAY ==
--- NOTE | 2024-06-05 12:39 | CA_ITS ---
FINAL REPORT TECHNIQUE: Arterial duplex Doppler evaluation of the lower extremities with spectral analysis. CLINICAL HISTORY: afib, DM, Ex-smoker, HTN, HLD, bilateral foot pain COMPARISON: None FINDINGS: Right lower extremity, flow velocities (cm per second): Common femoral artery: 91.8 Proximal SFA: 42 Distal SFA: 92 Popliteal: 60 Anterior tibial artery: 31 Peroneal artery: 74 Left lower extremity, flow velocities (cm per second): Common femoral artery: 88 Proximal SFA: 76 Distal SFA: 76 Popliteal: 49 Anterior tibial artery: 38 Peroneal artery: 83 IMPRESSION: Waveforms are noted to be biphasic and triphasic. No levels of stenosis or occlusion are identified. Note is made of calcification within the distal common femoral artery and scattered through the calf vessels bilaterally. Reviewed, Interpreted and Dictated by Craig Falk MD Transcribed by Alexandra Shoemaker Authenticated and . [facility]
--- NOTE | 2024-06-05 12:39 | US_ITS ---
FINAL REPORT CLINICAL HISTORY: foot pain and numbness, bilateral.DM, Afib FINDINGS: ANKLE-BRACHIAL PRESSURE INDICES Pressure indices are as follows: RIGHT LOWER EXTREMITY: Ankle-brachial pressure index: 1.3 Comments: Normal LEFT LOWER EXTREMITY: Ankle-brachial pressure index: 1.24 Comments: Normal CONCLUSION: No evidence of significant obstructive peripheral vascular disease of the lower extremities Reviewed, Interpreted and Dictated by Craig Falk MD Transcribed by Alexandra Shoemaker Authenticated and [facility]
== END 2024-06-05 23:59 | disposition home or self-care (01) ==
LOC: RT 12:36
PROVIDERS: PCP Family Medicine; Visit Provider Internal Medicine
DX: I70.8 Atherosclerosis of other arteries (principal); M79.671 Pain in right foot; M79.672 Pain in left foot; R20.0 Anesthesia of skin; R94.31 Abnormal electrocardiogram [ECG] [EKG]; E11.69 Type 2 diabetes mellitus with other specified complication; I50.30 Unspecified diastolic (congestive) heart failure; I48.20 Chronic atrial fibrillation, unspecified; E78.5 Hyperlipidemia, unspecified; Z87.891 Personal history of nicotine dependence
CPT/HCPCS: 93923; 93925

== ENCOUNTER 2025-01-08 10:14 | Outpatient (CLI) | payer MEDICARE, SELFPAY ==
--- OUTSIDE RECORDS SUMMARY | 2023-09-22 05:00 | XMS_ITS ---
Author Organization [facility] Address [address] [facility] [address] ELYSE [place] [id number] Care Team Providers Care Real Estate Management Specialist Name Role Phone Ruth Charles Primary Care Provider [phone] RUTH CHARLES Unavailable Unavailable Allergies No Known Allergies Results Component Value Reference Range Notes Glucose (In-House) Reviewed date:09/23/2023 09:17:57 AM Interpretation:209 Performing Lab: Notes/Report: 209 blood glucose 209 74 - 106 mg/dL Glycohemoglobin A1c (in hous e) Reviewed date:09/23/2023 09:17:57 AM Interpretation:9.5% Performing Lab: Notes/Report: 9.5% glycohemoglobin 9.5% 5 - 6.5 % P-Basic Metabolic Panel (BMP ) Reviewed date:09/23/2023 09:17:57 AM Interpretation:gluc 202, bun 31, creat 1.85, gfr 37 Performing Lab: Notes/Report: Test performed by [facility] [address] [place] [address] , [address], [place] [address] Jamel Dior MD, Dry Mixer CLIA: [id number] Sodium 142 135-145 mEq/L Potassium 4.1 3.5-5.3 mEq/L Chloride 105 97-108 mEq/L CO2 26 22-32 mEq/L Glucose 202 65-99 mg/dL BUN 31 8-23 mg/dL Creatinine 1.85 0.70-1.30 mg/dL Calcium 9.4 8.6-10.4 mg/dL eGFR by Creatinine 37 >59 mL/min/1.73m2 P-Vitamin D 25-Hydroxy Reviewed date:09/23/2023 09:17:57 AM Interpretation:117 Performing Lab: Notes/Report: Test performed by [facility] [facility], [facility] [address] [place] [address] , [address] , [place] [address] Jamel Dior MD, Dry Mixer CLIA: [id number] Vitamin D 25-Hydroxy 117.0 30.0-100.0 ng/mL Interpretation of Vitamin D 25 OH: < 20 ng/mL - Deficiency 20 - 29 ng/mL - Insufficiency 30 - 100 ng/mL - Sufficiency > 100 ng/mL - Super-therapeutic- toxicity may occur above this level. Clinical correlation required. REASON FOR VISIT 6 months Medications Medication SIG (Take, Route, Frequency, Duration) Notes Start Date End Date Status Metoprolol Tartrate 50 MG 2 tab orally 2 times a day Active Levothyroxine Sodium 125 MCG Take 1 tablet by mouth once daily; Duration: 90 Active Allopurinol 100 MG Take 2 tablets by mouth once daily; Duration: 90 Active Tamsulosin HCl 0.4 MG 1 cap(s) orally on ce a day; Duration: 90 days Active Atorvastatin Calcium 40 MG 1 tab(s) oral ly once a day (at bedtime); Duration: 90 Active Xarelto 15 MG 1 tab(s) orally once a day (in the evening); Duration: 90 days Active Farxiga 10 MG Take 1 tablet by laron th once daily E11.9 Active dilTIAZem HCl ER 120 MG 1 cap(s) Orally once a day Active prednisoLONE Acetate 1 % 1 drop into aff ected eye Ophthalmic Twice a day Active Timolol Hemihydrate 0.5 % 1 drop into af fected eye Ophthalmic Once a day Active metFORMIN HCl ER 500 MG 2 Tablets Daily Active Hydrocortisone 2.5 % 1 jordi rectally 2 ti mes a day; Duration: 14 day(s) Active Ketoconazole 2 % 1 jordi applied topically once a day Active Fenofibrate 160 MG 1 tab(s) orally once a day; Duration: 90 day(s) Not-Taking Vitamin D-3 125 MCG (5000 UT) Take 1 capsule by mouth once a week; Duration: 91 days Active Vital Signs Blood pressure systolic 136 mm Hg 09/22/19 24 Blood pressure diastolic 82 mm Hg 024 Heart Rate 74 /min 09/22/2023 Height 70 in 09/22/2023 Weight 208.2 lbs 09/22/2023 BMI 29.87 kg/m2 09/22/2023 Encounters Encounter Location Date Provider Diagnosis [facility] [address] [place] [address] 36 [facility] [address] [place], [place] [id number] 09/22/2023 Ruth Charles Type 2 diabetes lizzie itus without complication E11.9 ; Stage 3b chronic kidney disease N18.32 ; Vitamin D deficiency E55.9 ; Essential (primary) hypertension I10 and Nocturnal hypoxia G47.34 Assessments Encounter Date Diagnosis (ICD Code) Assessment Notes Treatment Notes Treatment Clinical Notes Section Notes 09/22/2023 Type 2 diabetes mellitus without complication (ICD-10 - E11.9) 09/22/2023 Stage 3b chronic kidney disease (ICD-10 - N18.32) 09/22/2023 Vitamin D deficiency (ICD-10 - E55.9) 09/22/2023 Essential (primary) hypertension (ICD-10 - I10) 09/22/2023 Nocturnal hypoxia (ICD-10 - G47.34) Plan Of Treatment Medication Medication Name Sig Start Date Stop Date Notes OXYGEN CONCENTRATOR 1 CONCENTRATOR DIRECTED 07/22/2022 cloNIDine HCl 0.1 MG 1 tab(s) orally 2 times a day, prn Farxiga 10 MG Take 1 tablet by mouth once daily E11.9 dilTIAZem HCl ER 120 MG 1 cap(s) Orally once a day metFORMIN HCl ER 500 MG 2 Tablets Daily Next Appt Details Follow Up: 6 Months, Reason: Provider Name:Ruth Stallings , 03/25/2025 09:30:00 AM, [address] [facility] 36 [facility], [address], [place], [place], [id number], Progress Notes * Bay CHILELDOB:1945 (79 yo M)Acc No.[id number]:09/22/2023 Progress Notes Patient: Bay THIBODEAUX Provider: Jovanna Charles M.D. :1945 A ge:77 Y S ex:Male Date:09/22/2023 Address:[address] [place] [address] CHATO FOWLER, [id number] Subjective: * Chief Complaints: * 1 . 6 months. * HPI: C ardiology: 77 year old male presents with c/o Blood Pressure Elevated P t here for 6 mo f/u on hypertension, states he is doing well and does not have any concerns. c/o Hyperlipidemia p t is fasting today. E ndocrinology: c/o Recent Blood Sugars P t here to f/u on DM 2. c/o Hypothyroidism. * ROS: D ERMATOLOGY: no R blanca. n o H katelyn. G ASTROENTEROLOGY: no N ausea. n o V omiting. U ROLOGY: no D ifficulty urinating. n o B lood in urine. * Medical History: T ype 2 Diabetes, Hypertension, Hypothyroidism, Hypertriglyceridemia, Hyperlipidemia, Gout, Renal Insufficiency, Testosterone Deficiency, Kidney Stones, Multiple, BPH, s/p Urology Evaluation, Pancreatitis, 2020, Renal Cyst, on CT 10/2019. * Surgical History: C olonoscopy 2000, Face Mole Removal 01/2017, Dental Implants , RT Ureteral Stent Placement 09/07/2019, Colonoscopy 12/2019. * Hospitalization/Major Diagno stic Procedure: N /V/D & Dehydration 04/2008, Vertigo- H 08/10/2010, Kidney Stone- [facility] 08/2019. * Family History: F ather: . M other: . 1 son(s) - healthy. . * Social History: C URRENT TOBACCO USE S moking Status: Patient does NOT smoke. C affeine: yes, frequency:. Exercise: no. Marital Status: . Past smoking status: no, Smoking status: Does not smoke, Former Smoker: Yes. * Medications: T aking prednisoLONE Acetate 1 % Suspension 1 drop into affected eye Ophthalmic Twice a day , Taking Timolol Hemihydrate 0.5 % Solution 1 drop into affected eye Ophthalmic Once a day , Taking Ketoconazole 2 % Cream 1 jordi applied topically once a day , Taking Hydrocortisone 2.5 % Cream 1 jordi rectally 2 times a day , Taking Xarelto 15 MG Tablet 1 tab(s) orally once a day (in the evening) , Taking Atorvastatin Calcium 40 MG Tablet 1 tab(s) orally once a day (at bedtime) , Taking dilTIAZem HCl ER 120 MG Capsule Extended Release 12 Hour 1 cap(s) Orally once a day , Taking metFORMIN HCl ER 500 MG Tablet Extended Release 24 Hour 2 Tablets Daily , Taking Metoprolol Tartrate 50 MG Tablet 2 tab orally 2 times a day , Taking Allopurinol 100 MG Tablet Take 2 tablets by mouth once daily , Taking Farxiga 10 MG Tablet Take 1 tablet by mouth once daily , Notes to Pharmacist: E11.9, Taking Levothyroxine Sodium 125 MCG Tablet Take 1 tablet by mouth once daily , Taking Tamsulosin HCl 0.4 MG Capsule 1 cap(s) orally once a day , Taking Vitamin D-3 125 MCG (5000 UT) Tablet Take 1 capsule by mouth once a week , Not-Taking Fenofibrate 160 MG Tablet 1 tab(s) orally once a day , Not- Taking OXYGEN CONCENTRATOR 1 CONCENTRATOR DIRECTED , Not-Taking cloNIDine HCl 0.1 MG Tablet 1 tab(s) orally 2 times a day, prn , Medication List reviewed and reconciled with the patient * Allergies: N .K.D.A. Objective: * Vitals: W t:208.2, Temp:97.9, BP:136/82, HR:74, O2 Sat:97% on RA, Nurse:ashli, Ht: 70, BMI:29.87. * Examination: C ardiology: General Appearance: p leasant, NAD. H eart sounds: R RR. L ungs: c lear, no rales or wheezes. E xtremities: n o leg edema. ? Assessment: * Assessment: 1. T ype 2 diabetes mellitus without complication - E11.9 (Primary) 2 . S tage 3b chronic kidney disease - N18.32 3 . V itamin D deficiency - E55.9 ? 4 . E ssential (primary) hypertension - I10 5 . N octurnal hypoxia - G47.34 Plan: * Treatment: Value Reference Range b lood glucose 209 74 - 106 mg/dL * Bere Stein 09/22/2023 12:0 1:35 PM > Freda Magana 09/23/2023 9:16:54 AM >See phone encounter ?LAB: Glycohemoglobin A1c (in house) (Collection Date & Time - 09/22/2023)? 9.5%* Value Reference Range g lycohemoglobin 9.5% 5 - 6.5 % * Bere Setin 09/22/2023 12:0 1:59 PM > Freda Magana 09/23/2023 9:16:54 AM >See phone encounter 2.?Stage 3b chronic kidney disease?LAB: P-Basic Metabolic Panel (BMP) (Collection Date & Time - 09/22/2023 09:05 AM)?gluc 202, bun 31, creat 1.85, gfr 37* Value Reference Range B UN 31 H 8-23 - mg/dL * C alcium 9.4 8.6-10.4 - mg/dL * C hloride 105 97-108 - mEq/L * C O2 26 22-32 - mEq/L * C reatinine 1.85 H 0.70-1.30 - mg/dL * G lucose 202 H 65-99 - mg/dL * P otassium 4.1 3.5-5.3 - mEq/L * S odium 142 135-145 - mEq/L * e GFR by Creatinine 37 L >59 - mL/min/1.73m2 * Freda Magana 09/23/2023 9:16 :54 AM >See phone encounter 3.?Vitamin D deficiency?LAB: P-Vitamin D 25-Hydroxy (Collection Date & Time - 09/22/2023 09:05 AM)? 117* Value Reference Range V itamin D 25-Hydroxy 117.0 H 30.0-100.0 - ng/mL * Freda Magana 09/23/2023 9:16 :54 AM >See phone encounter 4.?Essential (primary) hypertension? Continue dilTIAZem HCl ER Capsule Extended Release 12 Hour, 120 MG, 1 cap(s), Orally, once a day; Stop cloNIDine HCl Tablet, 0.1 MG, 1 tab(s), orally, 2 times a day, prn.??5.?Nocturnal hypoxia? Stop OXYGEN CONCENTRATOR, 1 CONCENTRATOR, DIRECTED.?? * Procedure Codes: G 2211 Complex e/[place], [address] GLUCOSE TEST, 16253 GLYCATED HEMOGLOBIN TEST, Modifiers: QW * Follow Up: 6 Months * Images: Billing Information: * Visit Code: 38147 Office Visit, Est Pt., Level 4. * Procedure Codes: G2211 Complex e/[place]. [address] GLUCOSE TEST. 69524 GLYCATED HEMOGLOBIN TEST. Modifiers: QW * Electronic signature of Brandy Charles MD on 01/08/2025 at 10:23 AM EDT Sign off status: Pending * Provider: Jovanna Charles M.D. Date: 0 09/22/2023 Generated for Margoth khalil/Michelle/eTransmitting on: 0 01/08/2025 10:23 AM EDT History and Physical Notes * HPI (History of Present Illness) Category Sub-Category Detail Notes Category Not es Endocrinology Recent Blood Sugars Pt here to f/u on DM 2 Hypothyroidism Cardiology Blood Pressure Elevated Pt here for 6 mo f/u on hypertension, states he is doing well and does not have any concerns Hyperlipidemia pt is fasting today Examination Category Sub-Category Detail Notes Category Not es Cardiology Lungs: clear, no rales or wheezes Heart sounds: RRR Extremities: no leg edema General Appearance: pleasant, NAD
--- OUTSIDE RECORDS SUMMARY | 2024-01-24 06:00 | XMS_ITS ---
Author Organization [facility] Address [address] [facility] [address] [place] [id number] Care Team Providers Care [facility] Shift Lead Name Role Phone Ruth Charles Primary Care [...] day; Duration: 14 day(s) Active Vital Signs Blood pressure systolic 140 mm Hg 01/24/20 Blood pressure diastolic 82 mm Hg 024 Heart Rate 82 /min 01/24/2024 Height 70 in 01/24/2024 Weight 000 lbs 01/24/2024 Encounters Encounter Location Date Provider Diagnosis [facility] [address] [facility] [address] [facility] [address] [place] [id number] 01/24/2024 Ruth Charles Pain in left foot M79.672 Assessments Encounter Date Diagnosis (ICD Code) Assessment Notes Treatment Notes Treatment Clinical Notes Section Notes 01/24/2024 Pain in left foot (ICD-10 - M79.672) Current course of treatment reviewed, including pertinent labs and diagnostic imaging. Risks and benefits of the use of controlled substances discussed, including the risk of tolerance and drug dependence. Refer to [facility] Controlled Substance Agreement. Plan Of Treatment Medication [...] of tolerance and drug dependence. Refer to [facility] Controlled Substance Agreement. Next Appt Details Follow Up: via phone to repo rt test results, Reason: Provider Name:Ruth Stallings ry, 03/25/2025 09:30:00 AM, [address] [facility] [address] [facility], [address], [place], [phone], Progress Notes * Bay CHILELDOB:1945 (79 yo M)Acc No.[id number]:01/24/2024 Progress Notes Patient: [place] THIBO[place]AUX Provider: Jovanna Charles M.D. :1945 A ge:78 Y S ex:Male Date:01/24/2024 Address:[address] [place] [address] [place], [id number] Subjective: * Chief Complaints: * 1 . [...] Dehydration 04/2008, Vertigo- H 08/10/2010, Kidney Stone- [facility] 08/2019. * Family History: F ather: [...] * Images: Billing Information: * Visit Code: 27021 Office Visit, Est Pt., Level 3. * Procedure Codes: G2211 Complex e/m visit add on. * Electronic signature of Brandy Charles MD on 01/08/2025 at 10:23 AM EDT Sign off status: Pending * Provider: Jovanna Charles M.D. Date: 0 01/24/2024 Generated for Margoth khalil/Michelle/Caitlinitting on: 0 01/08/2025 10:23 AM EDT History [...]
--- OUTSIDE RECORDS SUMMARY | 2024-03-22 05:30 | XMS_ITS ---
Author Organization [facility] Address [address] [facility] [address] [place] [id number] Care Team Providers Care Director Funeral Name Role Phone Ruth Chalres Primary Care Provider [phone] RUTH CHARLES Unavailable Unavailable Allergies No Known Allergies Results Component Value Reference Range Notes Glucose (In-House) Reviewed date:03/23/2024 11:27:12 AM Interpretation:317 Performing Lab: Notes/Report: 317 blood glucose 317 74 - 106 mg/dL Glycohemoglobin A1c (in hous e) Reviewed date:03/23/2024 11:27:12 AM Interpretation:12.3 Performing Lab: Notes/Report: 12.3 glycohemoglobin 12.3% 5 - 6.5 % P-Comprehensive Metabolic Pa terrie (CMP) Reviewed date:03/23/2024 11:27:12 AM Interpretation:gluc 258, bun 37, Cr 1.78, gfr 38 Performing Lab: Notes/Report: Test performed by [facility] [address] [place] [address] , [address], [place] [address] Jamel Dior MD, Insole Taper CLIA: [id number] Sodium 139 135-145 mmol/L Potassium 4.7 3.5-5.3 mmol/L Chloride 101 97-108 mmol/L CO2 26 22-32 mmol/L Glucose 258 65-99 mg/dL BUN 37 8-23 mg/dL Creatinine 1.78 0.70-1.30 mg/dL Calcium 9.2 8.6-10.4 mg/dL eGFR by Creatinine 38 >59 mL/min/1.73m2 Protein 6.8 6.0-8.3 g/dL Albumin 4.2 3.5-5.3 g/dL Alkaline Phosphatase 102 40-129 IU/L ALT (SGPT) 24 <5-55 IU/L AST (SGOT) 18 <5-46 IU/L Bilirubin, Total 0.4 <0.2-1.2 mg/dL A/G Ratio 1.6 1.1-2.5 P-T4 Free (thyroxine) Reviewed date:03/23/2024 11:27:12 AM Interpretation: Normal Performing Lab: Notes/Report: Test performed by [facility] [address] [place] [address] , [place] [address] Jamel Dior MD, Insole Taper CLIA: [id number] Thyroxine Free (free T4) 1.69 0.86-1.76 ng/dL P-Lipid Panel Reviewed date:03/23/2024 11:27:12 AM Interpretation:trigs 218, hdl 31 Performing Lab: Notes/Report: Test performed by [facility] [address] [place] [address] , [address], [place] [address] Jamel Dior MD, Insole Taper CLIA: [id number] Cholesterol 125 <200 mg/dL Triglycerides 218 <150 mg/dL HDL Cholesterol 31 >39 mg/dL Cholesterol / HDL Ratio 4.03 0.00-4.99 Ratio Non-HDL Cholesterol 94 <130 mg/dL LDL Cholesterol (Calculation) 50 <130 mg/dL LDL Cholesterol Levels* Less than 100 mg/dL Optimal 100 to 129 mg/dL Near Optimal/ Above Optimal 130 to 159 mg/dL Borderline High 160 to 189 mg/dL High 190 mg/dL and above Very High * Categories as recommended by the 2004 ATPIII guidelines LDL/HDL Ratio 1.6 <3.3 Ratio LDL Cholesterol Patient History Test Date: 03/23/2023 LDL Results: 50 Units: mg/dL % Change: - Test Date: 03/22/2024 LDL Results: 50 Units: mg/dL % Change: 0% P-Phosphorus Reviewed date:03/23/2024 11:27:12 AM Interpretation: Normal Performing Lab: Notes/Report: Test performed by [facility] [address] [place] [address] , [place] [address] Jamel Dior MD, Insole Taper CLIA: [id number] Phosphorus 3.8 2.5-4.5 mg/dL P-PSA Reviewed date:03/23/2024 11:27:12 AM Interpretation: Normal Performing Lab: Notes/Report: Test performed by [facility] [address] [place] [address] , [address], [place] [address] Jamel Dior MD, Insole Taper CLIA: [id number] PSA 0.14 <4.00 ng/mL Please note this is an ultrasensitive PSA assay with a lower limit of detection of 0.014 ng/mL. This test is performed by the Wang ECLIA methodology. Values obtained with different assay methods or kits cannot be directly compared. P-TSH Reviewed date:03/23/2024 11:27:12 AM Interpretation: Normal Performing Lab: Notes/Report: Test performed by [facility] [address] [place], [place] [address]Ingenico [place] , [facility], [place] [address] Jamel Dior MD, Insole Taper CLIA: [id number] TSH 1.63 0.43-5.25 mU/L P-Microalbumin/Creatinine, R andom Urine Sample Reviewed date:03/23/2024 11:27:12 AM Interpretation:a/c 569 Performing Lab: Notes/Report: Test performed by [facility] [address] , [place] [address] Jamel Dior MD, Insole Taper CLIA: [id number] Albumin/Creatinine Ratio, Urine 569 0-30 ug/m g Microalbumin, Urine, Random 44.4 Creatinine, Urine 78.0 P-Uric Acid Reviewed date:03/23/2024 11:27:12 AM Interpretation: Normal Performing Lab: Notes/Report: Test performed by [facility] [address] , [place] [address] Jamel Dior MD, Insole Taper CLIA: [id number] Uric Acid 6.1 3.4-8.0 mg/dL P-Vitamin D 25-Hydroxy Reviewed date:03/23/2024 11:27:12 AM Interpretation: Normal Performing Lab: Notes/Report: Test performed by [facility] [address] , [place] [address] Jamel Dior MD, Insole Taper CLIA: [id number] Vitamin D 25-Hydroxy 76.2 30.0-100.0 ng/mL Interpretation of Vitamin D 25 OH: < 20 ng/mL - Deficiency 20 - 29 ng/mL - Insufficiency 30 - 100 ng/mL - Sufficiency > 100 ng/mL - Super-therapeutic- toxicity may occur above this level. Clinical correlation required. REASON FOR VISIT 6 month f/u Medications Medication SIG (Take, Route, Frequency, Duration) Notes Start Date End Date Status prednisoLONE Acetate 1 % 1 drop into aff ected eye Ophthalmic Twice a day Active Timolol Hemihydrate 0.5 % 1 drop into af fected eye Ophthalmic Once a day Active Ketoconazole 2 % 1 jordi applied topica lly once a day Active Hydrocortisone 2.5 % 1 jordi rectally 2 ti mes a day; Duration: 14 day(s) Active Xarelto 15 MG 1 tab(s) orally once a day (in the evening); Duration: 90 days Active Allopurinol 100 MG Take 2 tablets by mo uth once daily; Duration: 90 Active traMADol HCl 50 MG 1 tablet as needed Orally every 6 hrs 01/24/2024 Active Tamsulosin HCl 0.4 MG 1 cap(s) orally on ce a day; Duration: 90 days Active Levothyroxine Sodium 125 MCG Take 1 tabl et by mouth once daily Active Atorvastatin Calcium 40 MG 1 tab(s) oral ly once a day (at bedtime) Active metFORMIN HCl ER 500 MG TAKE 4 TABLETS B Y MOUTH ONCE DAILY WITH EVENING MEAL FOR 90 DAYS Active Farxiga 10 MG Take 1 tablet by laron th once daily E11.9 Active dilTIAZem HCl ER 120 MG 1 cap(s) Orally once a day Active Metoprolol Tartrate 50 MG 2 tab orally 2 times a day Active Vitamin D-3 125 MCG (5000 UT) Take 1 capsule by mouth once a week; Duration: 91 days Active Vital Signs Blood pressure systolic 140 mm Hg 03/22/20 24 Blood pressure diastolic 82 mm Hg 024 Heart Rate 77 /min 03/22/2024 Height 70 in 03/22/2024 Weight 211.2 lbs 03/22/2024 BMI 30.30 kg/m2 03/22/2024 Encounters Encounter Location Date Provider Diagnosis [facility] 1210 [facility] [address] [id number] 03/22/2024 Ruth Melvin Type 2 diabetes lizzie itus without complication E11.9 ; Essential hypertension I10 ; Hyperlipidemia, unspecified hyperlipidemia E78.5 ; Acquired hypothyroidism E03.9 ; Gout, unspecified cause, unspecified chronicity, unspecified site M10.9 ; Stage 3b chronic kidney disease N18.32 ; Vitamin D deficiency E55.9 and Prostate cancer screening Z12.5 Assessments Encounter Date Diagnosis (ICD Code) Assessment Notes Treatment Notes Treatment Clinical Notes Section Notes 03/22/2024 Type 2 diabetes mellitus without complication (ICD-10 - E11.9) 03/22/2024 Essential hypertension (ICD-10 - I10) 03/22/2024 Hyperlipidemia, unspecified hyperlipidemia (ICD-10 - E78.5) 03/22/2024 Acquired hypothyroidism (ICD-10 - E03.9) 03/22/2024 Gout, unspecified cause, unspecified chronicity, unspecified site (ICD-10 - M10.9) 03/22/2024 Stage 3b chronic kidney disease (ICD-10 - N18.32) 03/22/2024 Vitamin D deficiency (ICD-10 - E55.9) 03/22/2024 Prostate cancer screening (ICD-10 - Z12.5) Plan Of Treatment Medication Medication Name Sig Start Date Stop Date Notes Levothyroxine Sodium 125 MCG Take 1 tabl et by mouth once daily Atorvastatin Calcium 40 MG 1 tab(s) oral ly once a day (at bedtime) metFORMIN HCl ER 500 MG TAKE 4 TABLETS B Y MOUTH ONCE DAILY WITH EVENING MEAL FOR 90 DAYS Farxiga 10 MG Take 1 tablet by laron th once daily E11.9 dilTIAZem HCl ER 120 MG 1 cap(s) Orally once a day Metoprolol Tartrate 50 MG 2 tab orally 2 times a day Next Appt Details Follow Up: 6 Months, Reason: Provider Name:Ruth Stallings , 03/25/2025 09:30:00 AM, [address] [facility], [address] , [place], [place], [id number], Progress Notes * Bay CHILELDOB:1945 (79 yo M)Acc No.[id number]:03/22/2024 Progress Notes Patient: Bay THIBOEDAUX Provider: Jovanna Charles M.D. :1945 A ge:78 Y S ex:Male Date:03/22/2024 Address:[address] [place] [address] CHATO FOWLER, [id number] Subjective: * Chief Complaints: * 1 . 6 month f/u. * HPI: C ardiology: 78 year old male presents with c/o Blood Pressure Elevated P t here for 6 mo f/u on hypertension, states he is doing well and does not have any concerns. c/o Hyperlipidemia P t is fasting today. E ndocrinology: c/o Recent Blood Sugars P t here to f/u on DM 2, pt states that he does not check blood sugar at home. * ROS: D ERMATOLOGY: no R blanca. [...] Procedure: N /V/D & Dehydration 04/2008, Vertigo- [facility] 08/10/2010, Kidney Stone- [facility] 08/2019. * Family History: F ather: . [...] orally 2 times a day , Taking Vitamin D-3 125 [...] tablets by mouth once daily , Taking traMADol HCl 50 MG Tablet 1 tablet as needed Orally every 6 hrs , Taking Tamsulosin HCl 0.4 MG Capsule 1 cap(s) orally once a day , Medication List reviewed and reconciled with the patient * Allergies: N .K.D.A. Objective: * Vitals: W t:211.2, Temp:97.8, BP:140/82, HR:77, O2 Sat:95% on RA, Nurse:ashli, Ht: 70, BMI:30.30. * Examination: C ardiology: General Appearance: p leasant, NAD. H eart sounds: R RR. L ungs: c lear, no rales or wheezes. E xtremities: n o leg edema. ? Assessment: * Assessment: 1. T ype 2 diabetes mellitus without complication - E11.9 (Primary) 2 . E ssential hypertension - I10 3 . H yperlipidemia, unspecified hyperlipidemia - E78.5 4 . A cquired hypothyroidism - E03.9 5 . G out, unspecified cause, unspecified chronicity, unspecified site - M10.9 6 . S tage 3b chronic kidney disease - N18.32 7 . V itamin D deficiency - E55.9 8 .?Prostate cancer screening - Z12.5 Plan: * Treatment: Value Reference Range A /G Ratio 1.6 1.1-2.5 - * A lbumin 4.2 3.5-5.3 - g/dL * A lkaline Phosphatase 102 40-129 - IU/L * A LT (SGPT) 24 <5-55 - IU/L * A ST (SGOT) 18 <5-46 - IU/L * B ilirubin, Total 0.4 <0.2-1.2 - mg/dL * B UN 37 H 8-23 - mg/dL * C alcium 9.2 8.6-10.4 - mg/dL * C hloride 101 97-108 - mmol/L * C O2 26 22-32 - mmol/L * C reatinine 1.78 H 0.70-1.30 - mg/dL * G lucose 258 H 65-99 - mg/dL * P otassium 4.7 3.5-5.3 - mmol/L * S odium 139 135-145 - mmol/L * P rotein 6.8 6.0-8.3 - g/dL * e GFR by Creatinine 38 L >59 - mL/min/1.73m2 * Mulu Gonzales 03/23/2024 11:2 7:02 AM >See phone encounter ?LAB: P-Microalbumin/Creatinine, Random Urine Sample (Collection Date & Time - 03/22/2024 08:55 AM)?a/c 569* Value Reference Range A lbumin/Creatinine Ratio, Urine 569 H 0-30 - ug /mg * C reatinine, Urine 78.0 - mg/dL * M icroalbumin, Urine, Random 44.4 - mg/dL * Mulu Gonzales 03/23/2024 11:2 7:02 AM >See phone encounter ?LAB: Glucose (In-House) (Collection Date & Time - 03/22/2024)?317* Value Reference Range b od glucose 317 74 - 106 mg/dL * Berta Davies 03/22/2024 10:27: 23 AM > Mulu Gonzales 03/23/2024 11:27:02 AM >See phone encounter ?LAB: Glycohemoglobin A1c (in house) (Collection Date & Time - 03/22/2024)? 12.3* Value Reference Range g lycohemoglobin 12.3% 5 - 6.5 % * Berta Davies 03/22/2024 10:30: 57 AM > Mulu Gonzales 03/23/2024 11:27:02 AM >See phone encounter 2.?Essential hypertension? Continue Metoprolol Tartrate Tablet, 50 MG, 2 tab, orally, 2 times a day;?Continue dilTIAZem HCl ER Capsule Extended Release 12 Hour, 120 MG, 1 cap(s), Orally, once a day.?LAB: P-Comprehensive Metabolic Panel (CMP) (Collection Date & Time - 03/22/2024 08:55 AM)?gluc 258, bun 37, Cr 1.78, gfr 38* Value Reference Range A /G Ratio 1.6 1.1-2.5 - * A lbumin 4.2 3.5-5.3 - g/dL * A lkaline Phosphatase 102 40-129 - IU/L * A LT (SGPT) 24 <5-55 - IU/L * A ST (SGOT) 18 <5-46 - IU/L * B ilirubin, Total 0.4 <0.2-1.2 - mg/dL * B UN 37 H 8-23 - mg/dL * C alcium 9.2 8.6-10.4 - mg/dL * C hloride 101 97-108 - mmol/L * C O2 26 22-32 - mmol/L * C reatinine 1.78 H 0.70-1.30 - mg/dL * G lucose 258 H 65-99 - mg/dL * P otassium 4.7 3.5-5.3 - mmol/L * S odium 139 135-145 - mmol/L * P rotein 6.8 6.0-8.3 - g/dL * e GFR by Creatinine 38 L >59 - mL/min/1.73m2 * Mulu Gonzales 03/23/2024 11:2 7:02 AM >See phone encounter 3.?Hyperlipidemia, unspecified hyperlipidemia? Continue Atorvastatin Calcium Tablet, 40 MG, 1 tab(s), orally, once a day (at bedtime).?LAB: P-Comprehensive Metabolic Panel (CMP) (Collection Date & Time - 03/22/2024 08:55 AM)?gluc 258, bun 37, Cr 1.78, gfr 38* Value Reference Range A /G Ratio 1.6 1.1-2.5 - * A lbumin 4.2 3.5-5.3 - g/dL * A lkaline Phosphatase 102 40-129 - IU/L * A LT (SGPT) 24 <5-55 - IU/L * A ST (SGOT) 18 <5-46 - IU/L * B ilirubin, Total 0.4 <0.2-1.2 - mg/dL * B UN 37 H 8-23 - mg/dL * C alcium 9.2 8.6-10.4 - mg/dL * C hloride 101 97-108 - mmol/L * C O2 26 22-32 - mmol/L * C reatinine 1.78 H 0.70-1.30 - mg/dL * G lucose 258 H 65-99 - mg/dL * P otassium 4.7 3.5-5.3 - mmol/L * S odium 139 135-145 - mmol/L * P rotein 6.8 6.0-8.3 - g/dL * e GFR by Creatinine 38 L >59 - mL/min/1.73m2 * Mulu Gonzales 03/23/2024 11:2 7:02 AM >See phone encounter ?LAB: P-Lipid Panel (Collection Date & Time - 03/22/2024 08:55 AM)?trigs 218, hdl 31* Value Reference Range C holesterol / HDL Ratio 4.03 0.00-4.99 - Ratio * C holesterol 125 <200 - mg/dL * H DL Cholesterol 31 L >39 - mg/dL * L DL Cholesterol (Calculation) 50 <130 - mg/d L * L DL/HDL Ratio 1.6 <3.3 - Ratio * N on-HDL Cholesterol 94 <130 - mg/dL * T riglycerides 218 H <150 - mg/dL * Mulu Gonzales 03/23/2024 11:2 7:02 AM >See phone encounter 4.?Acquired hypothyroidism? Continue Levothyroxine Sodium Tablet, 125 MCG, Take 1 tablet by mouth once daily.?LAB: P-T4 Free (thyroxine) (Collection Date & Time - 03/22/2024 08:55 AM)? Normal* Value Reference Range T hyroxine Free (free T4) 1.69 0.86-1.76 - ng/d L * Mulu Gonzales 03/23/2024 11:2 7:02 AM >See phone encounter ?LAB: P-TSH (Collection Date & Time - 03/22/2024 08:55 AM)?Normal* Value Reference Range T SH 1.63 0.43-5.25 - mU/L * Mulu Gonzales 03/23/2024 11:2 7:02 AM >See phone encounter 5.?Gout, unspecified cause, unspecified chronicity, unspecified site?LAB: P-Uric Acid (Collection Date & Time - 03/22/2024 08:55 AM)?Normal* Value Reference Range U faizan Acid 6.1 3.4-8.0 - mg/dL * Mulu Gonzales 03/23/2024 11:2 7:02 AM >See phone encounter 6.?Stage 3b chronic kidney disease?LAB: P-Phosphorus (Collection Date & Time - 03/22/2024 08:55 AM)?Normal* Value Reference Range P hosphorus 3.8 2.5-4.5 - mg/dL * Mulu Gonzales 03/23/2024 11:2 7:02 AM >See phone encounter 7.?Vitamin D deficiency?LAB: P-Vitamin D 25-Hydroxy (Collection Date & Time - 03/22/2024 08:55 AM)? Normal* Value Reference Range V itamin D 25-Hydroxy 76.2 30.0-100.0 - ng/mL * Mulu Gonzales 03/23/2024 11:2 7:02 AM >See phone encounter 8.?Prostate cancer screening?LAB: P-PSA (Collection Date & Time - 03/22/2024 08:55 AM)?Normal* Value Reference Range P SA 0.14 <4.00 - ng/mL * Mulu Gonzales 03/23/2024 11:2 7:02 AM >See phone encounter * Procedure Codes: G 2211 Complex e/[place], [address] GLUCOSE TEST, 24393 GLYCATED HEMOGLOBIN TEST, Modifiers: QW * Follow Up: 6 Months * Images: Billing Information: * Visit Code: 50231 Office Visit, Est Pt., Level 4. * Procedure Codes: G2211 Complex e/[place]. [address] GLUCOSE TEST. 18642 GLYCATED HEMOGLOBIN TEST. Modifiers: QW * Electronic signature of Brandy Charles MD on 01/08/2025 at 10:24 AM EDT Sign off status: Pending * Provider: Jovanna Charles M.D. Date: 05/22/2023 Generated for Christianoi ng/Faxing/eTransmitting on: 0 01/08/2025 10:24 AM EDT History and Physical Notes * HPI (History of Present Illness) Category Sub-Category Detail Notes Category Not es Endocrinology Recent Blood Sugars Pt here to f /u on DM 2, pt states that he does not check blood sugar at home Cardiology Blood Pressure Elevated Pt here for 6 mo f/u on hypertension, states he is doing well and does not have any concerns Hyperlipidemia Pt is fasting today Examination Category Sub-Category Detail Notes Category Not es Cardiology Lungs: clear, no rales or wheezes Heart sounds: RRR Extremities: no leg edema General Appearance: pleasant, NAD
--- OUTSIDE RECORDS SUMMARY | 2024-09-20 05:15 | XMS_ITS ---
Author Organization [facility] Address [address] [facility] [address] [place] [id number] Care Team Providers Care Materials Supervisor Name Role Phone Ruth Charles Primary Care Provider [phone] RUTH CHARLES Unavailable Unavailable Allergies No Known Allergies Results Component Value Reference Range Notes Glucose (In-House) Reviewed date:09/20/2024 11:03:37 AM Interpretation: Performing Lab: Notes/Report: blood glucose 177 74 - 106 mg/dL Glycohemoglobin A1c (in hous e) Reviewed date:09/20/2024 11:03:27 AM Interpretation: Performing Lab: Notes/Report: glycohemoglobin 7.1% 5 - 6.5 % P-Comprehensive Metabolic Pa terrie (CMP) Reviewed date:09/21/2024 09:30:32 AM Interpretation:gluc 141, bun 35. Cr 1.94, gfr 34 Performing Lab: Notes/Report: Test performed by [employer] [employer] [address] [place] [address] , [address], [place] [address] Jamel Dior MD, Manager Meeting CLIA: [id number] Sodium 140 135-145 mmol/L Potassium 4.1 3.5-5.3 mmol/L Chloride 106 97-108 mmol/L CO2 22 22-32 mmol/L Glucose 141 65-99 mg/dL BUN 35 8-23 mg/dL Creatinine 1.94 0.70-1.30 mg/dL Calcium 8.9 8.6-10.4 mg/dL eGFR by Creatinine 34 >59 mL/min/1.73m2 Protein 6.9 6.0-8.3 g/dL Albumin 4.1 3.5-5.3 g/dL Alkaline Phosphatase 104 40-129 IU/L ALT (SGPT) 19 <5-55 IU/L AST (SGOT) 18 <5-46 IU/L Bilirubin, Total 0.4 <0.2-1.2 mg/dL A/G Ratio 1.5 1.1-2.5 P-T4 Free (thyroxine) Reviewed date:09/21/2024 09:30:32 AM Interpretation:1.8 Performing Lab: Notes/Report: Test performed by [facility] [address] [place] [address] , [place] [address] Jamel Dior MD, Manager Meeting CLIA: [id number] Thyroxine Free (free T4) 1.80 0.86-1.76 ng/dL P-Lipid Panel Reviewed date:09/21/2024 09:30:32 AM Interpretation:trigs 153, hdl 25 Performing Lab: Notes/Report: Test performed by [email or web address] [address] [place] [address] , [address], [place] [id number] Jamel Dior MD, Manager Meeting CLIA: [id number] Cholesterol 106 <200 mg/dL Triglycerides 153 <150 mg/dL HDL Cholesterol 25 >39 mg/dL Cholesterol / HDL Ratio 4.24 0.00-4.99 Ratio Non-HDL Cholesterol 81 <130 mg/dL LDL Cholesterol (Calculation) 50 <130 mg/dL LDL Cholesterol Levels* Less than 100 mg/dL Optimal 100 to 129 mg/dL Near Optimal/ Above Optimal 130 to 159 mg/dL Borderline High 160 to 189 mg/dL High 190 mg/dL and above Very High * Categories as recommended by the 2004 ATPIII guidelines LDL/HDL Ratio 2.0 <3.3 Ratio LDL Cholesterol Patient History Test Date: 03/23/2023 LDL Results: 50 Units: mg/dL % Change: - Test Date: 03/22/2024 LDL Results: 50 Units: mg/dL % Change: 0% Test Date: 09/20/2024 LDL Results: 50 Units: mg/dL % Change: 0% P-TSH Reviewed date:09/21/2024 09:30:32 AM Interpretation:Normal Performing Lab: Notes/Report: Test performed by [email or web address] [address] [place], [place] [email or web address] [place] , [place] [address] Jamel Dior MD, Manager Meeting CLIA: [id number] TSH 0.79 0.43-5.25 mU/L P-Vitamin D 25-Hydroxy Reviewed date:09/21/2024 09:30:32 AM Interpretation:Normal Performing Lab: Notes/Report: Test performed by [email or web address] [address] [place], [place] [email or web address] [place] [address] Jamel Dior MD, Manager Meeting CLIA: [id number] Vitamin D 25-Hydroxy 98.4 30.0-100.0 ng/mL Interpretation of Vitamin D 25 OH: < 20 ng/mL - Deficiency 20 - 29 ng/mL - Insufficiency 30 - 100 ng/mL - Sufficiency > 100 ng/mL - Super-therapeutic- toxicity may occur above this level. Clinical correlation required. REASON FOR VISIT 6 months Medications Medication SIG (Take, Route, Frequency, Duration) Notes Start Date End Date Status Tamsulosin HCl 0.4 MG Take 1 capsule by mouth once daily for 90 days; Duration: 90 Active metFORMIN HCl ER 500 MG 4 tablet with ev ening meal Orally Once a day; Duration: 90 days Active Farxiga 10 MG 1 tablet Orally Once a day; Duration: 90 days Active Levothyroxine Sodium 125 MCG 1 tablet in the morning on an empty stomach Orally Once a day; Duration: 90 days Active Allopurinol 100 MG Take 2 tablets by mo uth once daily; Duration: 90 Active Vitamin D-3 125 MCG (5000 UT) Take 1 capsule by mouth once a week; Duration: 91 days Active Metoprolol Tartrate 50 MG 2 tab orally 2 times a day Active Atorvastatin Calcium 40 MG 1 tab(s) oral ly once a day (at bedtime) Active dilTIAZem HCl ER 120 MG 1 cap(s) Orally once a day Active Hydrocortisone 2.5 % 1 jordi rectally 2 ti mes a day; Duration: 14 day(s) Active Xarelto 15 MG 1 tab(s) orally once a day (in the evening); Duration: 90 days Active Ketoconazole 2 % 1 jordi applied topica lly once a day Active Ketoconazole 2 % 1 application Turning Machine Operator ally Once a day 09/20/2024 Active Chlorthalidone 25 MG 1 tablet in the mor germaine with food Orally Active amLODIPine Besylate 5 MG 1 tablet Orally Once a day Active Mounjaro 2.5 MG/0.5ML as directed Subcutaneous Active Vital Signs Blood pressure systolic 120 mm Hg 09/21/19 25 Blood pressure diastolic 82 mm Hg 025 Heart Rate 49 /min 09/20/2024 Height 70 in 09/20/2024 Weight 201.6 lbs 09/20/2024 BMI 28.92 kg/m2 09/20/2024 Encounters Encounter Location Date Provider Diagnosis [facility] [address] [place] [id number] 09/20/2024 Ruth Charles Type 2 diabetes lizzie itus without complication E11.9 ; Essential hypertension I10 ; Acquired hypothyroidism E03.9 ; Stage 3b chronic kidney disease N18.32 ; Vitamin D deficiency E55.9 ; Rash R21 and BMI 28.0-28.9,adult Z68.28 Assessments Encounter Date Diagnosis (ICD Code) Assessment Notes Treatment Notes Treatment Clinical Notes Section Notes 09/20/2024 Type 2 diabetes mellitus without complication (ICD-10 - E11.9) 09/20/2024 Essential hypertension (ICD-10 - I10) 09/20/2024 Acquired hypothyroidism (ICD-10 - E03.9) 09/20/2024 Stage 3b chronic kidney disease (ICD-10 - N18.32) 09/20/2024 Vitamin D deficiency (ICD-10 - E55.9) 09/20/2024 Rash (ICD-10 - R21) 09/20/2024 BMI 28.0-28.9,adult (ICD-10 - Z68.28) Plan Of Treatment Medication Medication Name Sig Start Date Stop Date Notes Ketoconazole 2 % 1 application Externally Once a day 09/20 Next Appt Details Follow Up: 6 Months, Reason: Provider Name:Ruth Stallings ry, 03/25/2025 09:30:00 AM, [address] [facility], [address], [place], [phone], Progress Notes * Bay CHILELDOB:1945 (79 yo M)Acc No.[id number]:09/20/2024 Progress Notes Patient: Bay THIBODEAUX Provider: Jovanna Charles M.D. :1945 A ge:78 Y S ex:Male Date:09/20/2024 Address:[address] [place], [place] [id number] Subjective: * Chief Complaints: * 1 . 6 months. * HPI: C ardiology: 78 year old male presents with c/o BloodPressure at Home T he pt is here for a check up on Hypertension and Hyperlipidemia. Pt states he is doing good and denies any new concerns. Pt is fasting. Denies : Chest Pain. D enies : Short of Breath. D enies : Dizziness. D enies : Palpitations. E ndocrinology: c/o Recent Blood Sugars T he pt is here for a check up on Diabetes , not checking regularly. * ROS: D ERMATOLOGY: no R blanca. n o H katelyn. G ASTROENTEROLOGY: no N ausea. n o V omiting. n o D iarrhea.? U ROLOGY: no D ifficulty urinating. n [...] Dehydration 04/2008, Vertigo- H 08/10/2010, Kidney Stone- [facility] 08/2019. * Family History: F ather: . M other: . 1 son(s) - healthy. . * Social History: C URRENT TOBACCO USE S moking Status: Patient does NOT smoke. C affeine: yes, frequency:. Exercise: no. Marital Status: . Past smoking status: no, Smoking status: Does not smoke, Former Smoker: Yes. * Medications: T aking amLODIPine Besylate 5 MG Tablet 1 tablet Orally Once a day , Taking Chlorthalidone 25 MG Tablet 1 tablet in the morning with food Orally , Taking Mounjaro 2.5 MG/0.5ML Solution Auto-injector as directed Subcutaneous , Taking Ketoconazole 2 % Cream 1 jordi applied topically once a day , Taking Hydrocortisone 2.5 % Cream 1 jordi rectally 2 times a day , Taking Xarelto 15 MG Tablet 1 tab(s) orally once a day (in the evening) , Taking Vitamin D-3 125 MCG (5000 UT) Tablet Take 1 capsule by mouth once a week , Taking Metoprolol Tartrate 50 MG Tablet 2 tab orally 2 times a day , Taking dilTIAZem HCl ER 120 MG Capsule Extended Release 12 Hour 1 cap(s) Orally once a day , Taking Atorvastatin Calcium 40 MG Tablet 1 tab(s) orally once a day (at bedtime) , Taking Levothyroxine Sodium 125 MCG Tablet 1 tablet in the morning on an empty stomach Orally Once a day , Taking Farxiga 10 MG Tablet 1 tablet Orally Once a day , Taking Allopurinol 100 MG Tablet Take 2 tablets by mouth once daily , Taking metFORMIN HCl ER 500 MG Tablet Extended Release 24 Hour 4 tablet with evening meal Orally Once a day , Taking Tamsulosin HCl 0.4 MG Capsule Take 1 capsule by mouth once daily for 90 days , Discontinued prednisoLONE Acetate 1 % Suspension 1 drop into affected eye Ophthalmic Twice a day , Discontinued Timolol Hemihydrate 0.5 % Solution 1 drop into affected eye Ophthalmic Once a day , Discontinued traMADol HCl 50 MG Tablet 1 tablet as needed Orally every 6 hrs , Medication List reviewed and reconciled with the patient * Allergies: N .K.D.A. Objective: * Vitals: W t: 201.6, Temp: 97.9, BP: 120/82, HR: 49, O2 Sat: 98% on RA, Nurse: DAVID, Ht: 70, BMI:28.92. * Examination: C ardiology: General Appearance: p leasant, NAD. H eart sounds: R RR. L ungs: c lear, no rales or wheezes. E xtremities: n o leg edema. ? G eneral Examination: Skin: s mall area of rough skin on the right forearm with some central clearing. Assessment: * Assessment: 1. T ype 2 diabetes mellitus without complication - E11.9 (Primary) 2 . E ssential hypertension - I10 3 . A cquired hypothyroidism - E03.9 4 . S tage 3b chronic kidney disease - N18.32 5 . V itamin D deficiency - E55.9 6 . R blanca - R21 7 . B [place] 28.0-28.9,adult - Z68.28 ? Plan: * Treatment: Value Reference Range A /G Ratio 1.5 1.1-2.5 - * A lbumin 4.1 3.5-5.3 - g/dL * A lkaline Phosphatase 104 40-129 - IU/L * A LT (SGPT) 19 <5-55 - IU/L * A ST (SGOT) 18 <5-46 - IU/L * B ilirubin, Total 0.4 <0.2-1.2 - mg/dL * B UN 35 H 8-23 - mg/dL * C alcium 8.9 8.6-10.4 - mg/dL * C hloride 106 97-108 - mmol/L * C O2 22 22-32 - mmol/L * C reatinine 1.94 H 0.70-1.30 - mg/dL * G lucose 141 H 65-99 - mg/dL * P otassium 4.1 3.5-5.3 - mmol/L * S odium 140 135-145 - mmol/L * P rotein 6.9 6.0-8.3 - g/dL * e GFR by Creatinine 34 L >59 - mL/min/1.73m2 * Mulu Gonzales 09/21/2024 09:3 0:26 AM > See phone encounter ?LAB: P-Lipid Panel (Collection Date & Time - 09/20/2024 08:59 AM)?trigs 153, hdl 25* Value Reference Range C holesterol / HDL Ratio 4.24 0.00-4.99 - Ratio * C holesterol 106 <200 - mg/dL * H DL Cholesterol 25 L >39 - mg/dL * L DL Cholesterol (Calculation) 50 <130 - mg/d L * L DL/HDL Ratio 2.0 <3.3 - Ratio * N on-HDL Cholesterol 81 <130 - mg/dL * T riglycerides 153 H <150 - mg/dL * Mulu Gonzales 09/21/2024 09:3 0:26 AM > See phone encounter ?LAB: Glucose (In-House) (Collection Date & Time - 09/20/2024)* Value Reference Range b lood glucose 177 74 - 106 mg/dL * Rosalba Villafuerte 09/20/2024 10 :12:08 AM > Provider reviewed results while patient in office. ?LAB: Glycohemoglobin A1c (in house) (Collection Date & Time - 09/20/2024)* Value Reference Range g lycohemoglobin 7.1% 5 - 6.5 % * Rosalba Villafuerte 09/20/2024 10 :12:56 AM > Provider reviewed results while patient in office. 2.?Essential hypertension?LAB: P-Comprehensive Metabolic Panel (CMP) (Collection Date & Time - 09/20/2024 08:59 AM)?gluc 141, bun 35. Cr 1.94, gfr 34* Value Reference Range A /G Ratio 1.5 1.1-2.5 - * A lbumin 4.1 3.5-5.3 - g/dL * A lkaline Phosphatase 104 40-129 - IU/L * A LT (SGPT) 19 <5-55 - IU/L * A ST (SGOT) 18 <5-46 - IU/L * B ilirubin, Total 0.4 <0.2-1.2 - mg/dL * B UN 35 H 8-23 - mg/dL * C alcium 8.9 8.6-10.4 - mg/dL * C hloride 106 97-108 - mmol/L * C O2 22 22-32 - mmol/L * C reatinine 1.94 H 0.70-1.30 - mg/dL * G lucose 141 H 65-99 - mg/dL * P otassium 4.1 3.5-5.3 - mmol/L * S odium 140 135-145 - mmol/L * P rotein 6.9 6.0-8.3 - g/dL * e GFR by Creatinine 34 L >59 - mL/min/1.73m2 * Mulu Gonzales 09/21/2024 09:3 0:26 AM > See phone encounter 3.?Acquired hypothyroidism?LAB: P-T4 Free (thyroxine) (Collection Date & Time - 09/20/2024 08:59 AM)? 1.8* Value Reference Range T hyroxine Free (free T4) 1.80 H 0.86-1.76 - ng/d L * Mulu Gonzales 09/21/2024 09:3 0:26 AM > See phone encounter ?LAB: P-TSH (Collection Date & Time - 09/20/2024 08:59 AM)?Normal* Value Reference Range T SH 0.79 0.43-5.25 - mU/L * Mulu Gonzales 09/21/2024 09:3 0:26 AM > See phone encounter 4.?Stage 3b chronic kidney disease?LAB: P-Comprehensive Metabolic Panel (CMP) (Collection Date & Time - 09/20/2024 08:59 AM)?gluc 141, bun 35. Cr 1.94, gfr 34* Value Reference Range A /G Ratio 1.5 1.1-2.5 - * A lbumin 4.1 3.5-5.3 - g/dL * A lkaline Phosphatase 104 40-129 - IU/L * A LT (SGPT) 19 <5-55 - IU/L * A ST (SGOT) 18 <5-46 - IU/L * B ilirubin, Total 0.4 <0.2-1.2 - mg/dL * B UN 35 H 8-23 - mg/dL * C alcium 8.9 8.6-10.4 - mg/dL * C hloride 106 97-108 - mmol/L * C O2 22 22-32 - mmol/L * C reatinine 1.94 H 0.70-1.30 - mg/dL * G lucose 141 H 65-99 - mg/dL * P otassium 4.1 3.5-5.3 - mmol/L * S odium 140 135-145 - mmol/L * P rotein 6.9 6.0-8.3 - g/dL * e GFR by Creatinine 34 L >59 - mL/min/1.73m2 * Mulu Gonzales 09/21/2024 09:3 0:26 AM > See phone encounter 5.?Vitamin D deficiency?LAB: P-Vitamin D 25-Hydroxy (Collection Date & Time - 09/20/2024 08:59 AM)? Normal* Value Reference Range V itamin D 25-Hydroxy 98.4 30.0-100.0 - ng/mL * Mulu Gonzales 09/21/2024 09:3 0:26 AM > See phone encounter 6.?Rash? Start Ketoconazole Cream, 2 %, 1 application, Externally, Once a day, 30 grams, Refills 1.? * Procedure Codes: G 2211 Complex e/[place], [address] GLUCOSE TEST, 18313 GLYCATED HEMOGLOBIN TEST, Modifiers: QW , 3051F HG A1C>EQUAL 7.0%<8.0%, G8752 MOST RECENT SYSTOLIC BP < 140MM HG, G8754 MOST RECENT DIASTOLIC BP < 90MM HG, G8420 BMI<30 AND >=22 CALC & DOCU * Follow Up: 6 Months * Images: Billing Information: * Visit Code: 60898 Office Visit, Est Pt., Level 4. * Procedure Codes: G2211 Complex e/[place]. [address] GLU[place]SE TEST. 25397 GLYCATED HEMOGLOBIN TEST. Modifiers: QW 3051F HG A1C>EQUAL 7.0%<8.0%. G8752 MOST RECENT SYSTOLIC BP < 140MM HG. G8754 MOST RECENT DIASTOLIC BP < 90MM HG. G8420 BMI<30 AND >=22 CALC & DOCU. * Electronic signature of Brandy Charles MD on 01/08/2025 at 10:25 AM EDT Sign off status: Pending * Provider: Jovanna Charles M.D. Date: 0 09/20/2024 Generated for Margoth khalil/Michelle/Sarasmitting on: 0 01/08/2025 10:25 AM EDT History and Physical Notes * HPI (History of Present Illness) Category Sub-Category Detail Notes Category Not es Endocrinology Recent Blood Sugars The pt is he re for a check up on Diabetes , not checking regularly Cardiology Short of Breath Chest Pain Palpitations Dizziness BloodPressure at Home The pt is here for a check up on Hypertension and Hyperlipidemia. Pt states he is doing good and denies any new concerns. Pt is fasting Examination Category Sub-Category Detail Notes Category Not es General Examination Skin: small area o f rough skin on the right forearm with some central clearing Cardiology Lungs: clear, no rales or wheezes Heart sounds: RRR Extremities: no leg edema General Appearance: pleasant, NAD
--- OUTSIDE RECORDS SUMMARY | 2024-10-22 07:10 | XMS_ITS ---
Author Organization [facility] Address [address] [facility] [address] [place] [id number] Care Team Providers Care Insurance Verification Specialist Name Role Phone Ruth Charles Primary Care Provider [phone] RUTH CHARLES Unavailable Unavailable Results Component Value Reference Range Notes P-Basic Metabolic Panel (BMP ) Reviewed date:10/23/2024 05:09:38 PM Interpretation:gluc 123, bun 43, Cr 2.02, gfr 33 Performing Lab: Notes/Report: Test performed by [employer] [employer] [address] [place] [address] , [address], [place] [address] Jamel Dior MD, Homicide Squad Lieutenant CLIA: [id number] Sodium 138 135-145 mmol/L Potassium 5.1 3.5-5.3 mmol/L Chloride 107 97-108 mmol/L CO2 22 22-32 mmol/L Glucose 123 65-99 mg/dL BUN 43 8-23 mg/dL Creatinine 2.02 0.70-1.30 mg/dL Calcium 9.2 8.6-10.4 mg/dL eGFR by Creatinine 33 >59 mL/min/1.73m2 REASON FOR VISIT blood work Medications Medication SIG (Take, Route, Frequency, Duration) Notes Start Date End Date Status Mounjaro 2.5 MG/0.5ML as directed Subcutaneous Active Ketoconazole 2 % 1 jordi applied topica lly once a day Active Chlorthalidone 25 MG 1 tablet in the mor germaine with food Orally Active amLODIPine Besylate 5 MG 1 tablet Orally Once a day Active Hydrocortisone 2.5 % 1 jordi rectally 2 ti mes a day; Duration: 14 day(s) Active Kerendia 10 MG 1 tablet Orally Once a day; Duration: 30 days 09/26/2024 Active Ketoconazole 2 % 1 application Transportation Department Supervisor ally Once a day 09/20/2024 Active Allopurinol 100 MG Take 2 tablets by mo uth once daily; Duration: 90 Active metFORMIN HCl ER 500 MG 4 tablet with ev ening meal Orally Once a day; Duration: 90 days Active Tamsulosin HCl 0.4 MG Take 1 capsule by mouth once daily for 90 days; Duration: 90 Active Levothyroxine Sodium 125 MCG 1 tablet in the morning on an empty stomach Orally Once a day; Duration: 90 days Active Farxiga 10 MG 1 tablet Orally Once a day; Duration: 90 days Active dilTIAZem HCl ER 120 MG 1 cap(s) Orally once a day Active Atorvastatin Calcium 40 MG 1 tab(s) oral ly once a day (at bedtime) Active Metoprolol Tartrate 50 MG 2 tab orally 2 times a day Active Vitamin D-3 125 MCG (5000 UT) Take 1 capsule by mouth once a week; Duration: 91 days Active Xarelto 15 MG 1 tab(s) orally once a day (in the evening); Duration: 90 days Active Encounters Encounter Location Date Provider Diagnosis [facility] [address] [facility] [address] [place] [id number] 10/22/2024 Ruth Charles Stage 3b chronic kidney disease N18.32 Assessments Encounter Date Diagnosis (ICD Code) Assessment Notes Treatment Notes Treatment Clinical Notes Section Notes 10/22/2024 Stage 3b chronic kidney disease (ICD-10 - N18.32) Plan Of Treatment Next Appt Details Provider Name:Ruth Stallings ry, 03/25/2025 09:30:00 AM, [address], [address], [place], [phone], Progress Notes * Bay CHILELDOB:1945 (79 yo M)Acc No.[id number]:10/22/2024 Patient: Bay THIBODEAUX Provider: Jovanna Charles M.D. :1945 A ge:78 Y S ex:Male Date:10/22/2024 Address:[address] [place] [address] [place], [id number] Subjective: * Chief Complaints: * 1 . Blood work. * Medical History: * Medications: T aking amLODIPine Besylate 5 [...] tablet Orally Once a day , Taking metFORMIN HCl ER 500 MG Tablet Extended Release 24 Hour 4 tablet with evening meal Orally Once a day , Taking Tamsulosin HCl 0.4 MG Capsule Take 1 capsule by mouth once daily for 90 days , Taking Ketoconazole 2 % Cream 1 application Externally Once a day , Taking Allopurinol 100 MG Tablet Take 2 tablets by mouth once daily , Taking Kerendia 10 MG Tablet 1 tablet Orally Once a day , Medication List reviewed and reconciled with the patient Objective: * Vitals: Assessment: * Assessment: 1. S tage 3b chronic kidney disease - N18.32 Plan: * Treatment: Value Reference Range B UN 43 H 8-23 - mg/dL * C alcium 9.2 8.6-10.4 - mg/dL * C hloride 107 97-108 - mmol/L * C O2 22 22-32 - mmol/L * C reatinine 2.02 H 0.70-1.30 - mg/dL * G lucose 123 H 65-99 - mg/dL * P otassium 5.1 3.5-5.3 - mmol/L * S odium 138 135-145 - mmol/L * e GFR by Creatinine 33 L >59 - mL/min/1.73m2 * Bere Stein 10/23/2024 05: 09:29 PM EDT > See phone encounter * Images: Billing Information: * Visit Code: * Procedure Codes: * Electronic signature of Brandy Charles MD on 01/08/2025 at 10:23 AM EDT Sign off status: Pending * Provider: Jovanna Cahrles M.D. Date: 0 10/22/2024 Generated for Margoth khalil/Michelle/Caitlinitting on: 0 01/08/2025 10:23 AM EDT
--- OUTSIDE RECORDS SUMMARY | 2025-01-08 10:23 | XMS_ITS | Patient Health Record ---
Author Organization [facility] Address [address] [place] [address] Care Team Providers Care Stiff Leg Derrick Operator Name Role Phone ELOISE DAVID Primary Care Provider [phone] Emilia7 Tucker Moreno MD Unavailable Unavailable Reason For Referral No Information Medications Medication SIG (Take, Route, Fr equency, Duration) Notes Start Date End Date Status Chlorthalidone 1 (one) tablet(s) or 10/23/201005/1899 Active Problems Problem Type SNOMED Code ICD Code Onset Dates Problem Status W/U Status Risk Notes Problem Essential hypertension (77890730) Unspecified essential hypertension (401.9) 04/12/20 11 Active confirmed Marcel-Bin Problem Nephritis (23805808) Other nephritis and nephropathy, not specified as acute or chronic, with specified pathological lesion in kidney (583.89) 04/12/20 11 Active confirmed Marcel-Bin Problem Chronic kidney disease stage 2 (594858407) Chronic kidney disease, Stage II (mild) (585.2) 04/12/20 11 Active confirmed Marcel-Bin Problem Blood chemistry abnormal (450911052) Other abnormal blood chemistry (790.6) 04/12/20 11 Active confirmed Marcel-Bin Plan Of Treatment No Information Insurance Providers Payer Name Payer Address Payer Phone Subscriber Number Group Number Insured Name Patient Relationship to Insured Coverage Start Date Coverage End Date [employer] [address] [place] [address] [phone] [id number] [employer] Self - patient is the insured
--- OUTSIDE RECORDS SUMMARY | 2025-01-08 10:25 | XMS_ITS | Patient Health Record ---
Author Organization [facility] Address [address] [facility] [address] [place] [id number] Care Team Providers Care Shed Hand Name Role Phone Ruth Charles Primary Care Provider RUTH CHARLES Unavailable Unavailable Allergies No Known Allergies Results Component Value Reference Range Notes X ray : Foot, left Reviewed date:01/25/2024 09:39:48 AM Interpretation:osteopenia, small calcaneal spur, nothing acute Performing Lab: Notes/Report: osteopenia, small calcaneal spur, nothing acute VIC Reviewed date:01/25/2024 09:39:26 AM Interpretation:Normal Performing Lab: Notes/Report: Normal Glucose (In-House) Reviewed date:03/23/2024 11:27:12 AM Interpretation:317 Performing Lab: Notes/Report: 317 blood glucose 317 74 - 106 mg/dL Glycohemoglobin A1c (in hous e) Reviewed date:03/23/2024 11:27:12 AM Interpretation:12.3 Performing Lab: Notes/Report: 12.3 glycohemoglobin 12.3% 5 - 6.5 % P-Comprehensive Metabolic Pa terrie (CMP) Reviewed date:03/23/2024 11:27:12 AM Interpretation:gluc 258, bun 37, Cr 1.78, gfr 38 Performing Lab: Notes/Report: Test performed by [facility] [address] [place] [address] , [address], [place] [address] Jamel Dior MD, Window Treatment Installer CLIA: [id number] Sodium 139 135-145 mmol/L Potassium 4.7 3.5-5.3 [...] Normal Performing Lab: Notes/Report: Test performed by [facility] [address] [place] [address] , [place] [address] Jamel Dior MD, Window Treatment Installer CLIA: [id number] Thyroxine Free (free T4) 1.69 0.86-1.76 ng/dL P-Lipid Panel Reviewed date:03/23/2024 11:27:12 AM Interpretation:trigs 218, hdl 31 Performing Lab: Notes/Report: Test performed by [facility] [address] [place] [address] , [place] [address] Jamel Dior MD, Window Treatment Installer CLIA: [id number] Cholesterol 125 <200 mg/dL Triglycerides 218 <150 [...] Normal Performing Lab: Notes/Report: Test performed by [facility] [address] [place] [address] [address] , [place] [address] Jamel Dior MD, Window Treatment Installer CLIA: [id number] Phosphorus 3.8 2.5-4.5 mg/dL P-PSA Reviewed date:03/23/2024 11:27:12 AM Interpretation: Normal Performing Lab: Notes/Report: Test performed by [facility] [address] [place], [place] [address] [address], [place] [address] Jamel Dior MD, Window Treatment Installer CLIA: [id number] PSA 0.14 <4.00 ng/mL Please note this is an ultrasensitive PSA assay with a lower limit of detection of 0.014 ng/mL. This test is performed by the Wang ECLIA methodology. Values obtained with different assay methods or kits cannot be directly compared. P-TSH Reviewed date:03/23/2024 11:27:12 AM Interpretation: Normal Performing Lab: Notes/Report: Test performed by [facility] [address] , [address], [place] [address] Jamel Dior MD, Window Treatment Installer CLIA: [id number] TSH 1.63 0.43-5.25 mU/L P-Microalbumin/Creatinine, R andom Urine Sample Reviewed date:03/23/2024 11:27:12 AM Interpretation:a/c 569 Performing Lab: Notes/Report: Test performed by [facility] , [place] [address] Jamel Dior MD, Window Treatment Installer CLIA: [id number] Albumin/Creatinine Ratio, Urine 569 0-30 ug/m g Microalbumin, Urine, Random 44.4 Creatinine, Urine 78.0 P-Uric Acid Reviewed date:03/23/2024 11:27:12 AM Interpretation: Normal Performing Lab: Notes/Report: Test performed by [facility] , [place] [address] Jamel Dior MD, Window Treatment Installer CLIA: [id number] Uric Acid 6.1 3.4-8.0 mg/dL P-Vitamin D 25-Hydroxy Reviewed date:03/23/2024 11:27:12 AM Interpretation: Normal Performing Lab: Notes/Report: Test performed by [facility] [address] , [address], [place] [address] Jamel Dior MD, Window Treatment Installer CLIA: [id number] Vitamin D 25-Hydroxy 76.2 30.0-100.0 ng/mL Interpretation of Vitamin D 25 OH: < 20 ng/mL - Deficiency 20 - 29 ng/mL - Insufficiency 30 - 100 ng/mL - Sufficiency > 100 ng/mL - Super-therapeutic- toxicity may occur above this level. Clinical correlation required. P-Basic Metabolic Panel (BMP ) Reviewed date:10/23/2024 05:09:38 PM Interpretation:gluc 123, bun 43, Cr 2.02, gfr 33 Performing Lab: Notes/Report: Test performed by [facility] [address] [place] [address] , [address], [place] [address] Jamel Dior MD, Window Treatment Installer CLIA: [id number] Sodium 138 135-145 mmol/L Potassium 5.1 3.5-5.3 mmol/L Chloride 107 97-108 mmol/L CO2 22 22-32 mmol/L Glucose 123 65-99 mg/dL BUN 43 8-23 mg/dL Creatinine 2.02 0.70-1.30 mg/dL Calcium 9.2 8.6-10.4 mg/dL eGFR by Creatinine 33 >59 mL/min/1.73m2 Glucose (In-House) Reviewed date:09/20/2024 11:03:37 AM Interpretation: Performing Lab: Notes/Report: blood glucose 177 74 - 106 mg/dL Glycohemoglobin A1c (in hous e) Reviewed date:09/20/2024 11:03:27 AM Interpretation: Performing Lab: Notes/Report: glycohemoglobin 7.1% 5 - 6.5 % P-Comprehensive Metabolic Pa terrie (CMP) Reviewed date:09/21/2024 09:30:32 AM Interpretation:gluc 141, bun 35. Cr 1.94, gfr 34 Performing Lab: Notes/Report: Test performed by [facility] [address] [place] [address] , [address], [place] [address] Jamel Dior MD, Window Treatment Installer CLIA: [id number] Sodium 140 135-145 mmol/L Potassium 4.1 3.5-5.3 [...] Interpretation:1.8 Performing Lab: Notes/Report: Test performed by [facility] [address] [place] [address] [address], [place] [address] Jamel Dior MD, Window Treatment Installer CLIA: [id number] Thyroxine Free (free T4) 1.80 0.86-1.76 ng/dL P-Lipid Panel Reviewed date:09/21/2024 09:30:32 AM Interpretation:trigs 153, hdl 25 Performing Lab: Notes/Report: Test performed by [facility] [address] [place] [address] Jamel Dior MD, Window Treatment Installer CLIA: [id number] Cholesterol 106 <200 mg/dL Triglycerides 153 <150 [...] Interpretation:Normal Performing Lab: Notes/Report: Test performed by [facility] [address] [place], [place] [address] [place] , [place] [address] Jamel Dior MD, Window Treatment Installer CLIA: [id number] TSH 0.79 0.43-5.25 mU/L P-Vitamin D 25-Hydroxy Reviewed date:09/21/2024 09:30:32 AM Interpretation:Normal Performing Lab: Notes/Report: Test performed by [facility] [address] [place], [place] [address] [place] [address] Jamel Dior MD, Window Treatment Installer CLIA: [id number] Vitamin D 25-Hydroxy 98.4 30.0-100.0 ng/mL Interpretation of Vitamin D 25 OH: < 20 ng/mL - Deficiency 20 - 29 ng/mL - Insufficiency 30 - 100 ng/mL - Sufficiency > 100 ng/mL - Super-therapeutic- toxicity may occur above this level. Clinical correlation required. Medications Medication SIG (Take, Route, Frequency, Duration) Notes Start Date End Date Status Mounjaro 2.5 MG/0.5ML as directed Subcutaneous Active Kerendia 20 MG 1 tablet Orally Once a day; Duration: 90 days 10/25/2024 Active Ketoconazole 2 % 1 jordi applied topica lly once a day Active Farxiga 10 MG 1 tablet Orally Once a day; Duration: 90 days Active Levothyroxine Sodium 125 MCG 1 tablet in the morning on an empty stomach Orally Once a day; Duration: 90 days Active Tamsulosin HCl 0.4 MG 1 capsule Orally O nce a day; Duration: 90 days Active Ketoconazole 2 % 1 application Manager Of Medical ally Once a day 09/20/2024 Active Allopurinol 100 MG Take 2 tablets by [facility] once daily; Duration: 90 Active Chlorthalidone 25 MG 1 tablet in the mor germaine with food Orally Active metFORMIN HCl ER 500 MG 4 tablet with ev ening meal Orally Once a day; Duration: 90 days Active amLODIPine Besylate 5 MG 1 tablet Orally Once a day Active dilTIAZem HCl ER 120 MG 1 cap(s) Orally once a day Active Atorvastatin Calcium 40 MG 1 tab(s) oral ly once a day (at bedtime) Active Vitamin D-3 125 MCG (5000 UT) Take 1 capsule by mouth once a week; Duration: 91 days Active Metoprolol Tartrate 50 MG 2 tab orally 2 times a day Active Hydrocortisone 2.5 % 1 jordi rectally 2 ti mes a day; Duration: 14 day(s) Active Xarelto 15 MG 1 tab(s) orally once a day (in the evening); Duration: 90 days Active Immunizations Vaccine Route Administration Date Status Comme nts COVID 19 Pfizer Unknown 05/30/2020 Administered COVID 19 Pfizer Unknown 06/24/2020 Administered COVID 19 Pfizer Unknown 01/30/2021 Administered Fluzone High Dose (65yr and older) IM Intramuscular 01/29/2016 Administered Fluzone High Dose (65yr and older) IM Intramuscular 02/08/2019 Administered Fluzone High Dose (65yr and older) Unknown 01/14/2020 Administered Fluzone High Dose (65yr and older) Unknown 01/21/2021 Administered Fluzone High Dose (65yr and older) Unknown 01/28/2022 Administered Fluzone PF Quad (6-35 months) Unknown 01/29/2016 Administered PNEUMOVAX 23 VACCINE Unknown 03/16/2019 Pending Prevnar (PCV13) IM Intramuscular 03/10/2015 Administered Prevnar (PCV13) IM Intramuscular 01/29/2016 Administered Prevnar (PCV20) IM Intramuscular 03/22/2022 Administered xFlu shot-36 months and older IM Intramuscular 01/13/2009 Administered xFluzone High Dose-private (65yr&older) IM Intramuscular 02/13/2014 Administered xFluzone High Dose-private (65yr&older) Unknown 01/20/2017 Administered Problems Problem Type SNOMED Code ICD Code Onset Dates Problem Status W/U Status Risk Notes Problem Essential hypertension (46331996) Essential (primary) hypertension (I10) Active confirmed Problem Vitamin D deficiency (94535788) Vitamin D deficiency (E55.9) Active confirmed Problem Essential hypertension (77290116) Essential hypertension (I10) Active confirmed Problem Idiopathic sleep related non-obstructive alveolar hypoventilation (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) Nocturnal hypoxia (G47.34) Active confirmed Problem Renal failure syndrome (70264344) Unspecified kidney failure (N19) Active confirmed Problem Enlarged prostate (285743690) Enlarged prostate without lower urinary tract symptoms (N40.0) Active confirmed Problem Type II diabetes mellitus without complication (825533238) Type 2 diabetes mellitus without complication (E11.9) Active confirmed Problem Acquired hypothyroidism (041558333) Acquired hypothyroidism (E03.9) Active confirmed Problem Hyperlipidemia (72330390) Hyperlipidemia, unspecified hyperlipidemia (E78.5) Active confirmed Problem Sleep disturbance (25493947) Sleep disturbance (G47.9) Active confirmed Problem History of polyp of colon (situation) (235092225) Hx of colonic polyps (Z86.010) Active confirmed Problem Gout (16789616) Gout, unspecifie d cause, unspecified chronicity, unspecified site (M10.9) Active confirmed Problem Atrial fibrillation (99868074) Atrial fibrillation, unspecified type (I48.91) Active confirmed Problem Hyperlipidaemia (44655105) Hyperlipidemia, unspecified hyperlipidemia type (E78.5) Active confirmed Problem Chronic systolic heart failure (256970578) Chronic systolic congestive heart failure (I50.22) Active confirmed Problem Hypersomnia (48995773) Hypersomnia (G47.10) Active confirmed Problem Type II diabetes mellitus without complication (515157942) Type 2 diabetes mellitus without complication, unspecified whether alf insulin use (E11.9) Active confirmed Problem Skin sensation disturbance (28079672) Tingling of face (R20.2) Active confirmed Problem Diastolic heart failure (503056050) Heart failure with preserved ejection fraction, unspecified HF chronicity (I50.30) Active confirmed Problem Tomography - chest abnormal (047949417) Abnormal CT scan, chest (R93.89) Active confirmed Problem Chronic kidney disease stage 3B (disorder) (410217438) Stage 3b chronic kidney disease (N18.32) Active confirmed Vital Signs Heart Rate 49 /min 09/20/2024 Blood pressure diastolic 82 mm Hg 09/20/2024 Height 70 in 09/20/2024 Blood pressure systolic 120 mm Hg 09/20/2024 Weight 201.6 lbs 09/20/2024 BMI 28.92 kg/m2 09/20/2024 Encounters Encounter Location Date [facility] [address] [place], [place] [id number] 01/24/2024 Ruth [place] Pain in left foot M7 9.672 [facility] [address] [place], [place] [id number] 03/22/2024 Ruth [place] Type 2 diabetes lizzie itus without complication E11.9 ; Essential hypertension I10 ; Hyperlipidemia, unspecified hyperlipidemia E78.5 ; Acquired hypothyroidism E03.9 ; Gout, unspecified cause, unspecified chronicity, unspecified site M10.9 ; Stage 3b chronic kidney disease N18.32 ; Vitamin D deficiency E55.9 and Prostate cancer screening Z12.5 [facility] [address] [place], [place] [id number] 09/20/2024 Ruth [place] Type 2 diabetes lizzie itus without complication E11.9 ; Essential hypertension I10 ; Acquired hypothyroidism E03.9 ; Stage 3b chronic kidney disease N18.32 ; Vitamin D deficiency E55.9 ; Rash R21 and BMI 28.0-28.9,adult Z68.28 [facility] [address] [place], [place] [id number] 10/22/2024 Ruth [place] Stage 3b chronic kid paige disease N18.32 [facility] [address] [place], [place] [id number] 01/25/2024 Ruth [place] [facility] [address] [place], [place] [id number] 03/23/2024 Ruth [place] [facility] [address] [place], [place] [id number] 09/21/2024 Ruth [place] [facility] [address] [place], [place] [id number] 10/23/2024 [place] Assessments Encounter Date Diagnosis (ICD Code) Assessment Notes Treatment Notes Treatment Clinical Notes Section Notes 01/24/2024 Pain in left foot (ICD-10 - M79.672) Current course of treatment reviewed, including pertinent labs and diagnostic imaging. Risks and benefits of the use of controlled substances discussed, including the risk of tolerance and drug dependence. Refer to [facility] Controlled Substance Agreement. 03/22/2024 Essential hypertension (ICD-10 - I10) 03/22/2024 Type 2 diabetes mellitus without complication (ICD-10 - E11.9) 09/20/2024 Essential hypertension (ICD-10 - I10) 09/20/2024 Type 2 diabetes mellitus without complication (ICD-10 - E11.9) 10/22/2024 Stage 3b chronic kidney disease (ICD-10 - N18.32) 09/20/2024 Acquired hypothyroidism (ICD-10 - E03.9) 03/22/2024 Hyperlipidemia, unspecified hyperlipidemia (ICD-10 - E78.5) 03/22/2024 Acquired hypothyroidism (ICD-10 - E03.9) 09/20/2024 Stage 3b chronic kidney disease (ICD-10 - N18.32) 09/20/2024 Vitamin D deficiency (ICD-10 - E55.9) 03/22/2024 Gout, unspecified cause, unspecified chronicity, unspecified site (ICD-10 - M10.9) 03/22/2024 Stage 3b chronic kidney disease (ICD-10 - N18.32) 09/20/2024 Rash (ICD-10 - R21) 03/22/2024 Vitamin D deficiency (ICD-10 - E55.9) 09/20/2024 BMI 28.0-28.9,adult (ICD-10 - Z68.28) 03/22/2024 Prostate cancer screening (ICD-10 - Z12.5) Plan Of Treatment Next Appt Details Provider Name:Ruth geronimo, 03/25/2025 09:30:00 AM, [address], [address], [place], [place], [id number], Insurance Providers Payer Name Payer Address Payer Phone Subscriber Number Group Number Insured Name Patient Relationship to Insured Coverage Start Date Coverage End Date [employer] [address] [place] [id number] [place] Self - patient is the insured Medications Administered Medication Instructions Date of Administration Dosage Notes Dexamethasone 10/31/2006 1 mL Dexamethasone 06/19/2008 1 mL Medical (General) History Medical History History ICD Code Type 2 Diabetes Hypertension Hypothyroidism Hypertriglyceridemia Hyperlipidemia Gout Renal Insufficiency Testosterone Deficiency Kidney Stones, Multiple BPH, s/p Urology Evaluation Pancreatitis, 2020 Renal Cyst, on CT 10/2019 Surgical History Surgery Date(Month/Year) Colonoscopy 2000 Face Mole Removal 01/2017 Dental Implants RT Ureteral Stent Placement 09/07/2019 Colonoscopy 12/2019 Hospitalization History Reason Date(Month/Year) Kidney Stone- [facility] 08/2019 Vertigo- [facility] 08/10/2010 N/V/D & Dehydration 04/2008
[2025-01-08 10:27] LABS: Hematocrit 39.6 % (42.0-52.0); Hemoglobin 13.1 g/dL (14.1-18.0); Immature Granulocytes % 0.3 %; Mean Corpuscular HGB Conc 33.1 g/dL (31.8-35.4); Mean Corpuscular Hemoglobin 30.5 pg (27.0-31.2); Mean Corpuscular Volume 92.1 fl (80-94); Nucleated Red Blood Cells % 0 %; Platelet Count 186 K/mm3 (142-424); Red Blood Count 4.30 M/mm3 (4.60-6.20); Red Cell Distribution Width-SD 51.1 fL; White Blood Count 8.6 K/mm3 (4.8-10.8)
[2025-01-08 10:52] LABS: Alanine Aminotransferase 24 U/L (12-78); Albumin Level 4.2 g/dl (3.5-5.0); Alkaline Phosphatase 96 U/L (38-126); Anion Gap 12.4 mEq/L (5-15); Aspartate Amino Transferase 22 U/L (17-59); Bilirubin,Direct 0.2 mg/dl (0.0-0.4); Bilirubin,Indirect 0.4 mg/dL (0.0-0.9); Bilirubin,Total 0.6 mg/dl (0.2-1.3); Bilirubin,Unconjugated 0.4 mg/dL (0.0-1.1); Blood Urea Nitrogen 42 mg/dl (9-20); Calcium 9.7 mg/dl (8.4-10.2); Carbon Dioxide 24 mmol/L (22.0-30.0); Chloride 106 mmol/L (98-107); Cholesterol 129 mg/dl (140-200); Creatinine,Serum 2.30 mg/dl (0.66-1.25); Estimated Glomerular Filt Rate 27 ml/min (>60); GFR (African American) 33 ML/MIN (>60); Glucose 230 mg/dl (74-100); HDL Cholesterol 27 mg/dl (40-60); Magnesium 2.1 mg/dl (1.6-2.3); Potassium 5.4 mmoL/L (3.5-5.1); Sodium 137 mmol/L (136-145); Total Protein,Serum 7.5 g/dl (6.3-8.2); Triglycerides 199 mg/dl (30-150)
[2025-01-08 11:07] LABS: Free T4 (Free Thyroxine) 1.68 ng/dl (0.78-2.19)
[2025-01-08 11:23] LABS: Thyroid Stimulating Hormone 0.74 uIU/mL (0.465-4.68)
== END 2025-01-08 23:59 | disposition home or self-care (01) ==
LOC: LAB 10:15
PROVIDERS: PCP Family Medicine; Visit Provider Internal Medicine
DX: I10 Essential (primary) hypertension (principal); E11.9 Type 2 diabetes mellitus without complications
CPT/HCPCS: 36415; 80048; 80061; 80076; 83735; 84439; 84443; 85025

== ENCOUNTER 2025-01-29 10:09 | Outpatient (CLI) | payer MEDICARE, SELFPAY ==
--- OUTSIDE RECORDS SUMMARY | 2023-09-22 05:00 | XMS_ITS ---
Author Organization [facility] Address [address] [facility] [address] [place] [id number] Care Team Providers Care Russian History Professor Name Role Phone Ruth Charles Primary Care Provider RUTH CHARLES Unavailable Unavailable Allergies No Known [...] creat 1.85, gfr 37 Performing Lab: Notes/Report: CLIA: [id number] Jamel Dior MD, Iuss Analyst [address] [facility] , [address], [place] [address] Test performed by [employer], [employer] Sodium 142 135-145 mEq/L Potassium 4.1 3.5-5.3 mEq/L Chloride 105 97-108 mEq/L CO2 26 22-32 mEq/L Glucose 202 65-99 mg/dL BUN 31 8-23 mg/dL Creatinine 1.85 0.70-1.30 mg/dL Calcium 9.4 8.6-10.4 mg/dL eGFR by Creatinine 37 >59 mL/min/1.73m2 P-Vitamin D 25-Hydroxy Reviewed date:09/23/2023 09:17:57 AM Interpretation:117 Performing Lab: Notes/Report: Test performed by [employer], [employer] [address] [place] [address] , [address] , [place] [address] Jamel Dior MD, Iuss Analyst CLIA: [id number] Vitamin D 25-Hydroxy 117.0 30.0-100.0 ng/mL Interpretation [...] week; Duration: 91 days Active Vital Signs Weight 208.2 lbs 09/22/2023 Blood pressure systolic 136 mm Hg 09/22/19 24 Blood pressure diastolic 82 mm Hg 024 Heart Rate 74 /min 09/22/2023 Height 70 in 09/22/2023 BMI 29.87 kg/m2 09/22/2023 Encounters Encounter Location Date Provider Diagnosis [facility] [address] [place] [address] 36 [facility] [address] [place], [place] [id number] 09/22/2023 Ruth Charles Type 2 diabetes lizzie [...] Name:Ruth Stallings , 03/25/2025 09:30:00 AM, [address] [facility] 36 [facility], [address], [place], [place], [phone], Progress Notes * Bay CHILELDOB:1945 (79 yo M)Acc No.[id number]:09/22/2023 Progress Notes Patient: Bay THIBODEAUX Provider: Jovanna Charles M.D. :1945 A ge:77 Y S ex:Male Date:09/22/2023 Address:[address] [place] [address] CHATO FOWLER, [id number] Subjective: * Chief Complaints: * 1 . [...] Dehydration 04/2008, Vertigo- H 08/10/2010, Kidney Stone- [facility] 08/2019. * Family History: F ather: . [...] 9.5% 5 - 6.5 % * Bere Stein 09/22/2023 12:0 1:59 PM > Freda Magana [...] G 2211 Complex e/[place], [address] GLUCOSE TEST, 69870 GLYCATED HEMOGLOBIN TEST, Modifiers: QW * Follow Up: 6 Months * Images: Billing Information: * Visit Code: 71363 Office Visit, Est Pt., Level 4. * Procedure Codes: G2211 Complex e/[place]. [address] GLUCOSE TEST. 89898 GLYCATED HEMOGLOBIN TEST. Modifiers: QW * Electronic signature of Brandy Charles MD on 01/29/2025 at 10:11 AM EDT Sign off status: Pending * Provider: Jovanna Charles M.D. Date: 0 09/22/2023 Generated for Margoth khalil/Michelle/eTransmitting on: 0 01/29/2025 10:11 AM EDT History and Physical Notes * [...]
--- OUTSIDE RECORDS SUMMARY | 2024-01-24 06:00 | XMS_ITS ---
Author Organization [facility] Address [address] [facility] [address] [place] [id number] Care Team Providers Care Collateral Specialist Name Role Phone Ruth Charles Primary Care Provider RUTH CHARLES Unavailable Unavailable Allergies No Known Allergies Results Component Value Reference Range Notes X ray : Foot, left Reviewed date:01/25/2024 09:39:48 AM Interpretation:osteopenia, small calcaneal spur, nothing acute Performing Lab: Notes/Report: osteopenia, small calcaneal spur, nothing acute VIC Reviewed date:01/25/2024 09:39:26 AM Interpretation:Normal Performing Lab: Notes/Report: Normal REASON FOR VISIT left foot pain Medications Medication SIG (Take, Route, Frequency, Duration) Notes Start Date End Date Status Ketoconazole 2 % 1 jordi applied topica lly once a day Active traMADol HCl 50 MG 1 tablet as needed Orally every 6 hrs 01/24/2024 Active Timolol Hemihydrate 0.5 % 1 drop into af fected eye Ophthalmic Once a day Active prednisoLONE Acetate 1 % 1 drop into aff ected eye Ophthalmic Twice a day Active dilTIAZem HCl ER 120 MG 1 cap(s) Orally once a day Active Farxiga 10 MG Take 1 tablet by laron th once daily E11.9 Active Allopurinol 100 MG Take 2 tablets by mo uth once daily; Duration: 90 Active metFORMIN HCl ER 500 MG TAKE 4 TABLETS B Y MOUTH ONCE DAILY WITH EVENING MEAL FOR 90 DAYS; Duration: 90 Active Levothyroxine Sodium 125 MCG Take 1 tabl et by mouth once daily; Duration: 90 days Active Tamsulosin HCl 0.4 MG 1 cap(s) orally on ce a day; Duration: 90 days Active Metoprolol Tartrate 50 MG 2 tab orally 2 times a day Active Atorvastatin Calcium 40 MG 1 tab(s) oral ly once a day (at bedtime); Duration: Active Xarelto 15 MG 1 tab(s) orally once a day (in the evening); Duration: 90 days Active Vitamin D-3 125 MCG (5000 UT) Take 1 capsule by mouth once a week; Duration: 91 days Active Hydrocortisone 2.5 % 1 jordi rectally 2 ti mes a day; Duration: 14 day(s) Active Vital Signs Weight 000 lbs 01/24/2024 Blood pressure systolic 140 mm Hg 01/24/20 Blood pressure diastolic 82 mm Hg 024 Heart Rate 82 /min 01/24/2024 Height 70 in 01/24/2024 Encounters Encounter Location Date Provider Diagnosis [facility] [address] [facility] [address] [facility] [address] [place] [id number] 01/24/2024 Ruth Charles Pain in left foot M79.672 Assessments Encounter Date Diagnosis (ICD Code) Assessment Notes Treatment Notes Treatment Clinical Notes Section Notes 01/24/2024 Pain in left foot (ICD-10 - M79.672) Current course of treatment reviewed, including pertinent labs and diagnostic imaging. Risks and benefits of the use of controlled substances discussed, including the risk of tolerance and drug dependence. Refer to [facility] Controlled Substance Agreement. Plan Of Treatment Medication Medication Name Sig Start Date Stop Date Notes traMADol HCl 50 MG 1 tablet as needed Orally every 6 hrs 0 01/24/2024 Treatment Notes Assessment Notes Pain in left foot Current course of tr eatment reviewed, including pertinent labs and diagnostic imaging. Risks and benefits of the use of controlled substances discussed, including the risk of tolerance and drug dependence. Refer to [facility] Controlled Substance Agreement. Next Appt Details Follow Up: via phone to repo rt test results, Reason: Provider Name:Ruth Stallings ry, 03/25/2025 09:30:00 AM, [address] [facility] [address] [facility], [address], [place], [phone], Progress Notes * Bay CHILELDOB:1945 (79 yo M)Acc No.[id number]:01/24/2024 Progress Notes Patient: Bay THIBODEAUX Provider: Jovanna Charles M.D. :1945 A ge:78 Y S ex:Male Date:01/24/2024 Address:[address] [place] [address] [address] [place], [id number] Subjective: * Chief Complaints: * 1 . Left foot pain. * HPI: A nkle/Foot: 78 year old male presents with c/o Pain P t complain of off and on lt foot pain for a while . States the pain has become unbearable and he cannot put any weight on lt foot as of yesterday morning. Pt states he does also have some swelling in foot. * ROS: D ERMATOLOGY: no R blanca. n o H katelyn. G ASTROENTEROLOGY: no N ausea. n o V omiting. U ROLOGY: no D ifficulty urinating. n o B lood in urine. * Medical History: T ype 2 Diabetes, Hypertension, Hypothyroidism, Hypertriglyceridemia, Hyperlipidemia, Gout, Renal Insufficiency, Testosterone Deficiency, Kidney Stones, Multiple, BPH, s/p Urology Evaluation, Pancreatitis, 2019, Renal Cyst, on CT 10/2019. * Surgical History: C olonoscopy 2000, Face Mole Removal 01/2017, Dental Implants , RT Ureteral Stent Placement 09/07/2019, Colonoscopy 12/2019. * Hospitalization/Major Diagno stic Procedure: N /V/D & Dehydration 04/2008, Vertigo- H 08/10/2010, Kidney Stone- [facility] 08/2019. * Family History: F ather: . [...] once a day (at bedtime) , Taking Metoprolol Tartrate 50 MG Tablet 2 tab orally 2 times a day , Taking Tamsulosin HCl 0.4 MG Capsule 1 cap(s) orally once a day , Taking Vitamin D-3 125 MCG (5000 UT) Tablet Take 1 capsule by mouth once a week , Taking Farxiga 10 MG Tablet Take 1 tablet by mouth once daily , Notes to Pharmacist: E11.9, Taking dilTIAZem HCl ER 120 MG Capsule Extended Release 12 Hour 1 cap(s) Orally once a day , Taking Levothyroxine Sodium 125 MCG Tablet Take 1 tablet by mouth once daily , Taking metFORMIN HCl ER 500 MG Tablet Extended Release 24 Hour TAKE 4 TABLETS BY MOUTH ONCE DAILY WITH EVENING MEAL FOR 90 DAYS , Taking Allopurinol 100 MG Tablet Take 2 tablets by mouth once daily , Discontinued Fenofibrate 160 MG Tablet 1 tab(s) orally once a day , Medication List reviewed and reconciled with the patient * Allergies: N .K.D.A. Objective: * Vitals: W t:000, Temp:98.0, BP:140/82, HR:82, O2 Sat:98% on RA, Nurse:ashli, Ht: 70. * Examination: G eneral Examination: General Appearance: N AD, using a walker to assist with ambulation. E xtremities: u nable to bear weight on left foot, tenderness to palpation at the base of the 5 th metatarsal. Assessment: * Assessment: 1. P ain in left foot - M79.672 (Primary) Plan: * Treatment: Notes: Current course of treatment reviewed, including pertinent labs and diagnostic imaging. Risksand benefits of the use of controlled substances discussed, including the risk of tolerance and drug dependence. Refer to A Controlled Substance Agreement.?? * Imaging: * I ing: VIC (Performed Date - 01/24/2024) N ormal * Procedure Codes: G 2211 Complex e/m visit add on * Follow Up: v ia phone to report test results * Images: Billing Information: * Visit Code: 25757 Office Visit, Est Pt., Level 3. * Procedure Codes: G2211 Complex e/m visit add on. * Electronic signature of Brandy Charles MD on 01/29/2025 at 10:11 AM EDT Sign off status: Pending * Provider: Jovanna Charles M.D. Date: 0 01/24/2024 Generated for Margoth khalil/Michelle/Caitlinitting on: 0 01/29/2025 10:11 AM EDT History and Physical Notes * HPI (History of Present Illness) Category Sub-Category Detail Notes Category Not es Ankle/Foot Pain Pt complain of o ff and on lt foot pain for a while . States the pain has become unbearable and he cannot put any weight on lt foot as of yesterday morning. Pt states he does also have some swelling in foot Examination Category Sub-Category Detail Notes Category Not es General Examination Extremities: unable to be ar weight on left foot, tenderness to palpation at the base of the 5 th metatarsal General Appearance: NAD, using a walker to assist with ambulation
--- OUTSIDE RECORDS SUMMARY | 2024-03-22 05:30 | XMS_ITS ---
Author Organization [facility] Address [address] [facility] [address] [place] [phone] Care Team Providers Care Cap Jewel Plate Assembler Name Role Phone Ruth Charles Primary Care [...] Cr 1.78, gfr 38 Performing Lab: Notes/Report: CLIA: [id number] Jamel Dior MD, Warp Dyeing Tender [address] [facility] , [address], [place] [address] Test performed by [facility], [facility] Sodium 139 135-145 mmol/L Potassium 4.7 3.5-5.3 [...] 11:27:12 AM Interpretation: Normal Performing Lab: Notes/Report: CLIA: [id number] Jamel Dior MD, Warp Dyeing Tender [address] [place] [address] [place] [address] Test performed by [facility] Thyroxine Free (free T4) 1.69 0.86-1.76 ng/dL P-Lipid Panel Reviewed date:03/23/2024 11:27:12 AM Interpretation:trigs 218, hdl 31 Performing Lab: Notes/Report: Test performed by [facility] [address] [place] [address] Mariajose Browning C, [place] [address] Jamel Dior MD, Warp Dyeing Tender CLIA: [id number] Cholesterol 125 <200 mg/dL Triglycerides 218 <150 [...] Normal Performing Lab: Notes/Report: Test performed by [facility] [address] [place] [address] , [place] [address] Jamel Dior MD, Warp Dyeing Tender CLIA: [id number] Phosphorus 3.8 2.5-4.5 mg/dL P-PSA Reviewed date:03/23/2024 11:27:12 AM Interpretation: Normal Performing Lab: Notes/Report: Test performed by [facility] [address] [place] [address] , [address], [place] [address] Jamel Dior MD, Warp Dyeing Tender CLIA: [id number] PSA 0.14 <4.00 ng/mL Please note this is an ultrasensitive PSA assay with a lower limit of detection of 0.014 ng/mL. This test is performed by the Wang ECLIA methodology. Values obtained with different assay methods or kits cannot be directly compared. P-TSH Reviewed date:03/23/2024 11:27:12 AM Interpretation: Normal Performing Lab: Notes/Report: Test performed by [facility] [address] [place], [place] [address] [facility] [place] , [facility], [place] [address] Jamel Dior MD, Warp Dyeing Tender CLIA: [id number] TSH 1.63 0.43-5.25 mU/L P-Microalbumin/Creatinine, R andom Urine Sample Reviewed date:03/23/2024 11:27:12 AM Interpretation:a/c 569 Performing Lab: Notes/Report: Test performed by [facility] [address] , [place] [address] Jamel Dior MD, Warp Dyeing Tender CLIA: [id number] Albumin/Creatinine Ratio, Urine 569 0-30 ug/m g Microalbumin, Urine, Random 44.4 Creatinine, Urine 78.0 P-Uric Acid Reviewed date:03/23/2024 11:27:12 AM Interpretation: Normal Performing Lab: Notes/Report: Test performed by [facility] [address] , [place] [address] Jamel Dior MD, Warp Dyeing Tender CLIA: [id number] Uric Acid 6.1 3.4-8.0 mg/dL P-Vitamin D 25-Hydroxy Reviewed date:03/23/2024 11:27:12 AM Interpretation: Normal Performing Lab: Notes/Report: Test performed by [facility] [address] , [place] [address] Jamel Dior MD, Warp Dyeing Tender CLIA: [id number] Vitamin D 25-Hydroxy 76.2 30.0-100.0 ng/mL Interpretation [...] Duration: 91 days Active Vital Signs Weight 211.2 lbs 03/22/2024 Blood pressure systolic 140 mm Hg 03/22/20 24 Blood pressure diastolic 82 mm Hg 024 Heart Rate 77 /min 03/22/2024 Height 70 in 03/22/2024 BMI 30.30 kg/m2 03/22/2024 Encounters Encounter Location Date Provider Diagnosis [facility] 1210 [facility] [address] [phone] 03/22/2024 Ruth Melvin Type 2 diabetes lizzie [...] 03/25/2025 09:30:00 AM, [address] [facility], [address] , [place], [place], [id number], Progress Notes * Bay CHILELDOB:1945 (79 yo M)Acc No.[id number]:03/22/2024 Progress Notes Patient: Bay THIBODEAUX Provider: Jovanna Charles M.D. :1945 A ge:78 Y S ex:Male Date:03/22/2024 Address:[address] [place] [address] CHATO FOWLER, [id number] Subjective: * Chief Complaints: * 1 . [...] Procedure: N /V/D & Dehydration 04/2008, Vertigo- [facility] 08/10/2010, Kidney Stone- [facility] 08/2019. * Family History: F ather: . [...] G 2211 Complex e/[place], [address] GLUCOSE TEST, 32086 GLYCATED HEMOGLOBIN TEST, Modifiers: QW * Follow Up: 6 Months * Images: Billing Information: * Visit Code: 60360 Office Visit, Est Pt., Level 4. * Procedure Codes: G2211 Complex e/[place]. [address] GLUCOSE TEST. 52518 GLYCATED HEMOGLOBIN TEST. Modifiers: QW * Electronic signature of Brandy Charles MD on 01/29/2025 at 10:11 AM EDT Sign off status: Pending * Provider: Jovanna Charles M.D. Date: 05/22/2023 Generated for Printi ng/Faxing/eTransmitting on: 0 01/29/2025 10:11 AM EDT History [...]
--- OUTSIDE RECORDS SUMMARY | 2024-09-20 05:15 | XMS_ITS ---
Author Organization [facility] Address [address] [facility] [address] [place] [phone] Care Team Providers Care Fisher Diver Net Name Role Phone Ruth Charles Primary Care [...] 34 Performing Lab: Notes/Report: Test performed by [employer] [employer] [address] [place] [address] , [address], [place] [address] Jamel Dior MD, Painter Structural Steel CLIA: [id number] Sodium 140 135-145 mmol/L Potassium 4.1 3.5-5.3 [...] Interpretation:1.8 Performing Lab: Notes/Report: Test performed by [facility] [address] [place] [address] , [place] [address] Jamel Dior MD, Painter Structural Steel CLIA: [id number] Thyroxine Free (free T4) 1.80 0.86-1.76 ng/dL P-Lipid Panel Reviewed date:09/21/2024 09:30:32 AM Interpretation:trigs 153, hdl 25 Performing Lab: Notes/Report: Test performed by [facility] [address] [place] [address] , [address], [place] [id number] Jamel Dior MD, Painter Structural Steel CLIA: [id number] Cholesterol 106 <200 mg/dL Triglycerides 153 <150 [...] Interpretation:Normal Performing Lab: Notes/Report: Test performed by [facility] [address] [place], [place] [address] [place] , [place] [address] Jamel Dior MD, Painter Structural Steel CLIA: [id number] TSH 0.79 0.43-5.25 mU/L P-Vitamin D 25-Hydroxy Reviewed date:09/21/2024 09:30:32 AM Interpretation:Normal Performing Lab: Notes/Report: Test performed by [facility] [address] [place], [place] [address] [place] [address] Jamel Dior MD, Painter Structural Steel CLIA: [id number] Vitamin D 25-Hydroxy 98.4 30.0-100.0 ng/mL Interpretation [...] day Active Ketoconazole 2 % 1 application Climate Change Risk Assessor ally Once a day 09/20/2024 Active Chlorthalidone 25 MG 1 tablet in the mor germaine with food Orally Active amLODIPine Besylate 5 MG 1 tablet Orally Once a day Active Mounjaro 2.5 MG/0.5ML as directed Subcutaneous Active Vital Signs Weight 201.6 lbs 09/20/2024 Blood pressure systolic 120 mm Hg 09/21/19 25 Blood pressure diastolic 82 mm Hg 025 Heart Rate 49 /min 09/20/2024 Height 70 in 09/20/2024 BMI 28.92 kg/m2 09/20/2024 Encounters Encounter Location Date Provider Diagnosis [facility] [address] [place] [id number] 09/20/2024 Ruth Charles Type 2 diabetes lizzie [...] 03/25/2025 09:30:00 AM, [address] [facility], [address], [place], [phone], Progress Notes * Bay CHILELDOB:1945 (79 yo M)Acc No.[id number]:09/20/2024 Progress Notes Patient: Bay THIBODEAUX Provider: Jovanna Charles M.D. :1945 A ge:78 Y S ex:Male Date:09/20/2024 Address:[address] [place], [place] [id number] Subjective: * Chief Complaints: * 1 . [...] Vertigo- H 08/10/2010, Kidney Stone- [facility] 08/2019. * Family History: F ather: [...] R blanca - R21 7 . B [place] 28.0-28.9,adult - Z68.28 ? Plan: * Treatment: [...] G 2211 Complex e/[place], [address] GLUCOSE TEST, 75706 GLYCATED HEMOGLOBIN TEST, Modifiers: QW , 3051F HG A1C>EQUAL 7.0%<8.0%, G8752 MOST RECENT SYSTOLIC BP < 140MM HG, G8754 MOST RECENT DIASTOLIC BP < 90MM HG, G8420 BMI<30 AND >=22 CALC & DOCU * Follow Up: 6 Months * Images: Billing Information: * Visit Code: 08744 Office Visit, Est Pt., Level 4. * Procedure Codes: G2211 Complex e/[place]. [address] GLU[place]SE TEST. 48701 GLYCATED HEMOGLOBIN TEST. Modifiers: QW 3051F HG A1C>EQUAL 7.0%<8.0%. G8752 MOST RECENT SYSTOLIC BP < 140MM HG. G8754 MOST RECENT DIASTOLIC BP < 90MM HG. G8420 BMI<30 AND >=22 CALC & DOCU. * Electronic signature of Brandy Charles MD on 01/29/2025 at 10:12 AM EDT Sign off status: Pending * Provider: Jovanna Charles M.D. Date: 0 09/20/2024 Generated for Margoth khalil/Michelle/Sarasmitting on: 0 01/29/2025 10:12 AM EDT History and Physical Notes * [...]
--- OUTSIDE RECORDS SUMMARY | 2024-10-22 07:10 | XMS_ITS ---
Author Organization [facility] Address [address] [facility] [address] [place] [id number] Care Team Providers Care Weatherization Operations Manager Name Role Phone Ruth Charles Primary Care Provider RUTH CHARLES Unavailable Unavailable Results Component Value Reference Range Notes P-Basic Metabolic Panel (BMP ) Reviewed date:10/23/2024 05:09:38 PM Interpretation:gluc 123, bun 43, Cr 2.02, gfr 33 Performing Lab: Notes/Report: CLIA: [id number] Jamel Dior MD, Hospitality Manager [address] [place] [address] , [address], [place] [address] Test performed by [facility], [facility] Sodium 138 135-145 mmol/L Potassium 5.1 3.5-5.3 [...] 09/26/2024 Active Ketoconazole 2 % 1 application Body Care Manager ally Once a day 09/20/2024 Active Allopurinol [...] Active Encounters Encounter Location Date Provider Diagnosis [facility] [address] [facility] [address] [place] [id number] 10/22/2024 Ruth Charles Stage 3b chronic kidney disease N18.32 Assessments Encounter Date Diagnosis (ICD Code) Assessment Notes Treatment Notes Treatment Clinical Notes Section Notes 10/22/2024 Stage 3b chronic kidney disease (ICD-10 - N18.32) Plan Of Treatment Next Appt Details Provider Name:Ruth Stallings ry, 03/25/2025 09:30:00 AM, [address], [address], [place], [phone], Progress Notes * Bay CHILELDOB:1945 (79 yo M)Acc No.[id number]:10/22/2024 Patient: Bay THIBODEAUX Provider: Jovanna Charles M.D. :1945 A ge:78 Y S ex:Male Date:10/22/2024 Address:[address] [place] [address] [place], [id number] Subjective: * Chief Complaints: * 1 . [...] * Provider: Jovanna Charles M.D. Date: 0 10/22/2024 Generated for Margoth khalil/Michelle/Caitlinitting on: 0 01/29/2025 10:11 AM EDT
--- OUTSIDE RECORDS SUMMARY | 2025-01-29 10:11 | XMS_ITS | Patient Health Record ---
Author Organization [facility] Address [address] [place] [address] Care Team Providers Care Senior Business Manager Name Role Phone ELOISE DAVID Primary Care Provider [phone] Emilia7 Tucker Moreno MD Unavailable Unavailable Reason For Referral No Information Medications Medication SIG (Take, Route, Fr equency, Duration) Notes Start Date End Date Status Chlorthalidone 1 (one) tablet(s) or 10/23/201005/1899 Active Problems Problem Type SNOMED Code ICD Code Onset Dates Problem Status W/U Status Risk Notes Problem Essential hypertension (18457955) Unspecified essential hypertension (401.9) 04/12/20 11 Active confirmed Marcel-Bin Problem Nephritis (04977891) Other nephritis and nephropathy, not specified as acute or chronic, with specified pathological lesion in kidney (583.89) 04/12/20 11 Active confirmed Marcel-Bin Problem Chronic kidney disease stage 2 (540363162) Chronic kidney disease, Stage II (mild) (585.2) 04/12/20 11 Active confirmed Marcel-Bin Problem Blood chemistry abnormal (422314915) Other abnormal blood chemistry (790.6) 04/12/20 11 Active confirmed Marcel-Bin Plan Of Treatment No Information Insurance Providers Payer Name Payer Address Payer Phone Subscriber Number Group Number Insured Name Patient Relationship to Insured Coverage Start Date Coverage End Date [employer] [address] [place] [address] [id number] [employer] Self - patient is the insured
--- OUTSIDE RECORDS SUMMARY | 2025-01-29 10:12 | XMS_ITS | Patient Health Record ---
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 Name Role Phone [facility] [...] 38 Performing Lab: Notes/Report: Test performed by [facility], [facility] [address] [place] [address] , [address], [place] [address] Jamel Dior MD, [employer] CLIA: [id number] Sodium 139 135-145 mmol/L Potassium 4.7 3.5-5.3 [...] Normal Performing Lab: Notes/Report: Test performed by [employer] [address] [place] [address] , [place] [address] Jamel Dior MD, [employer] CLIA: [id number] Thyroxine Free (free T4) 1.69 0.86-1.76 ng/dL P-Lipid Panel Reviewed date:03/23/2024 11:27:12 AM Interpretation:trigs 218, hdl 31 Performing Lab: Notes/Report: Test performed by [employer] [address] [place] [address] , [address], [place] [address] Jamel Dior MD, [employer] CLIA: [id number] Cholesterol 125 <200 mg/dL Triglycerides 218 <150 [...] Normal Performing Lab: Notes/Report: Test performed by [facility] [address] , [place] [address] Jamel Dior MD, [employer] CLIA: [id number] Phosphorus 3.8 2.5-4.5 mg/dL P-PSA Reviewed date:03/23/2024 11:27:12 AM Interpretation: Normal Performing Lab: Notes/Report: Test performed by [facility] [address] , [address], [place] [address] Jamel Dior MD, [employer] CLIA: [id number] PSA 0.14 <4.00 ng/mL Please note this is an ultrasensitive PSA assay with a lower limit of detection of 0.014 ng/mL. This test is performed by the Wang ECLIA methodology. Values obtained with different assay methods or kits cannot be directly compared. P-TSH Reviewed date:03/23/2024 11:27:12 AM Interpretation: Normal Performing Lab: Notes/Report: Test performed by [facility] [address] , [place] [address] Jamel Dior MD, [employer] CLIA: [id number] TSH 1.63 0.43-5.25 mU/L P-Microalbumin/Creatinine, R andom Urine Sample Reviewed date:03/23/2024 11:27:12 AM Interpretation:a/c 569 Performing Lab: Notes/Report: Test performed by [facility] , [address], [place] [address] Jamel Dior MD, [employer] CLIA: [id number] Albumin/Creatinine Ratio, Urine 569 0-30 ug/m g Microalbumin, Urine, Random 44.4 Creatinine, Urine 78.0 P-Uric Acid Reviewed date:03/23/2024 11:27:12 AM Interpretation: Normal Performing Lab: Notes/Report: Test performed by [facility] , [address], [place] [address] Jamel Dior MD, [employer] CLIA: [id number] Uric Acid 6.1 3.4-8.0 mg/dL P-Vitamin D 25-Hydroxy Reviewed date:03/23/2024 11:27:12 AM Interpretation: Normal Performing Lab: Notes/Report: Test performed by [facility] [address] , [address], [place] [address] Jamel Dior MD, [employer] CLIA: [id number] Vitamin D 25-Hydroxy 76.2 30.0-100.0 ng/mL Interpretation [...] 33 Performing Lab: Notes/Report: Test performed by [facility] [address] , [address], [place] [address] Jamel Dior MD, [employer] CLIA: [id number] Sodium 138 135-145 mmol/L Potassium 5.1 3.5-5.3 mmol/L Chloride 107 97-108 mmol/L CO2 22 22-32 mmol/L Glucose 123 65-99 mg/dL BUN 43 8-23 mg/dL Creatinine 2.02 0.70-1.30 mg/dL Calcium 9.2 8.6-10.4 mg/dL eGFR by Creatinine 33 >59 mL/min/1.73m2 P-Vitamin D 25-Hydroxy Reviewed date:09/21/2024 09:30:32 AM Interpretation:Normal Performing Lab: Notes/Report: Test performed by [employer] [address] [place] [address] , [address], [place] [address] Jamel Dior MD, [employer] CLIA: [id number] Vitamin D 25-Hydroxy 98.4 30.0-100.0 ng/mL Interpretation of Vitamin D 25 OH: < 20 ng/mL - Deficiency 20 - 29 ng/mL - Insufficiency 30 - 100 ng/mL - Sufficiency > 100 ng/mL - Super-therapeutic- toxicity may occur above this level. Clinical correlation required. P-TSH Reviewed date:09/21/2024 09:30:32 AM Interpretation:Normal Performing Lab: Notes/Report: Test performed by [employer] [address] [place] [address] , [place] [address] Jamel Dior MD, [employer] CLIA: [id number] TSH 0.79 0.43-5.25 mU/L P-Lipid Panel Reviewed date:09/21/2024 09:30:32 AM Interpretation:trigs 153, hdl 25 Performing Lab: Notes/Report: Test performed by [employer] [address] [place] [address] , [address] [place] [id number] Jamel Dior MD, [employer] CLIA: [id number] Cholesterol 106 <200 mg/dL Triglycerides 153 <150 [...] Results: 50 Units: mg/dL % Change: 0% P-T4 Free (thyroxine) Reviewed date:09/21/2024 09:30:32 AM Interpretation:1.8 Performing Lab: Notes/Report: Test performed by [employer] [address] [facility] [address], [place] [address] Jamel Doir MD, [employer] CLIA: [id number] Thyroxine Free (free T4) 1.80 0.86-1.76 ng/dL P-Comprehensive Metabolic Pa terrie ([facility]) Reviewed date:09/21/2024 09:30:32 AM Interpretation:gluc 141, bun 35. Cr 1.94, gfr 34 Performing Lab: Notes/Report: Test performed by [facility], [address] , [address], [place] [address] Jamel Dior MD, [employer] CLIA: [id number] Sodium 140 135-145 mmol/L Potassium 4.1 3.5-5.3 [...] 0.4 <0.2-1.2 mg/dL A/G Ratio 1.5 1.1-2.5 Glycohemoglobin A1c (in hous e) Reviewed date:09/20/2024 11:03:27 AM Interpretation: Performing Lab: Notes/Report: glycohemoglobin 7.1% 5 - 6.5 % Glucose (In-House) Reviewed date:09/20/2024 11:03:37 AM Interpretation: Performing Lab: Notes/Report: blood glucose 177 74 - 106 mg/dL Medications Medication SIG (Take, Route, Frequency, Duration) Notes Start Date End Date Status Mounjaro 2.5 MG/0.5ML as directed Subcutaneous Active Kerendia 20 MG 1 tablet Orally Once a day; Duration: 90 days 10/25/2024 Active Ketoconazole 2 % 1 jordi applied topica lly once a day Active Dapagliflozin Propanediol 10 MG Take 1 tablet by mouth once daily; Duration: 90 Active Levothyroxine Sodium 125 MCG 1 tablet in the morning on an empty stomach Orally Once a day; Duration: 90 days Active Tamsulosin HCl 0.4 MG 1 capsule Orally O nce a day; Duration: 90 days Active Ketoconazole 2 % 1 application Resource Analyst ally Once a day 09/20/2024 Active Allopurinol 100 MG Take 2 tablets by mo uth once daily; Duration: 90 Active Chlorthalidone 25 [...] once a week; Duration: 91 days Active metFORMIN HCl ER 500 MG 4 tablet with ev ening meal Orally Once a day; Duration: 90 days Active Metoprolol [...] W/U Status Risk Notes Problem Essential hypertension (06820031) Essential (primary) hypertension (I10) Active confirmed Problem Vitamin D deficiency (88887091) Vitamin D deficiency (E55.9) Active confirmed Problem Essential hypertension (05100244) Essential hypertension (I10) Active confirmed Problem Idiopathic sleep related non-obstructive alveolar hypoventilation (202347974) Nocturnal hypoxia (G47.34) Active confirmed Problem Renal failure syndrome (16037272) Unspecified kidney failure (N19) Active confirmed Problem Enlarged prostate (282159028) Enlarged prostate without lower urinary tract symptoms (N40.0) Active confirmed Problem Type II diabetes mellitus without complication (322485235) Type 2 diabetes mellitus without complication (E11.9) Active confirmed Problem Acquired hypothyroidism (671347865) Acquired hypothyroidism (E03.9) Active confirmed Problem Hyperlipidemia (78125084) Hyperlipidemia, unspecified hyperlipidemia (E78.5) Active confirmed Problem Sleep disturbance (49830870) Sleep disturbance (G47.9) Active confirmed Problem History of polyp of colon (situation) (113298088) Hx of colonic polyps (Z86.010) Active confirmed Problem Gout (86111025) Gout, unspecifie d cause, unspecified chronicity, unspecified site (M10.9) Active confirmed Problem Atrial fibrillation (59607303) Atrial fibrillation, unspecified type (I48.91) Active confirmed Problem Hyperlipidaemia (11907393) Hyperlipidemia, unspecified hyperlipidemia type (E78.5) Active confirmed Problem Chronic systolic heart failure (620897114) Chronic systolic congestive heart failure (I50.22) Active confirmed Problem Hypersomnia (87436963) Hypersomnia (G47.10) Active confirmed Problem Type II diabetes mellitus without complication (441404735) Type 2 diabetes mellitus without complication, unspecified whether halfway insulin use (E11.9) Active confirmed Problem Skin sensation disturbance (61441267) Tingling of face (R20.2) Active confirmed Problem Diastolic heart failure (391185483) Heart failure with preserved ejection fraction, unspecified HF chronicity (I50.30) Active confirmed Problem Tomography - chest abnormal (286161348) Abnormal CT scan, chest (R93.89) Active confirmed Problem Chronic kidney disease stage 3B (disorder) (244437335) Stage 3b chronic kidney disease (N18.32) Active confirmed Vital Signs Heart Rate 49 /min 09/20/2024 Blood pressure diastolic 82 mm Hg 09/20/2024 Height 70 in 09/20/2024 Blood pressure systolic 120 mm Hg 09/20/2024 Weight 201.6 lbs 09/20/2024 BMI 28.92 kg/m2 09/20/2024 Encounters Encounter Location Date Provider Diagnosis [facility] [address] [facility] [address] [place], [place] [id number] 03/22/2024 Ruth [place] Type 2 diabetes lizzie itus without complication E11.9 ; Essential hypertension I10 ; Hyperlipidemia, unspecified hyperlipidemia E78.5 ; Acquired hypothyroidism E03.9 ; Gout, unspecified cause, unspecified chronicity, unspecified site M10.9 ; Stage 3b chronic kidney disease N18.32 ; Vitamin D deficiency E55.9 and Prostate cancer screening Z12.5 [facility] [address] [facility] [address] [place], [place] [id number] 09/20/2024 Ruth [place] Type 2 diabetes lizzie itus without complication E11.9 ; Essential hypertension I10 ; Acquired hypothyroidism E03.9 ; Stage 3b chronic kidney disease N18.32 ; Vitamin D deficiency E55.9 ; Rash R21 and BMI 28.0-28.9,adult Z68.28 [facility] [address] [facility] [address] [place], [place] [id number] 10/22/2024 Ruth [place] Stage 3b chronic kid paige disease N18.32 [facility] [address] [facility] [address] [place], [place] [id number] 03/23/2024 Ruth [place] [facility] [address] [facility] [address] [place], [place] [id number] 09/21/2024 Ruth [place] [facility] [address] [facility] [address] [place], [place] [id number] 10/23/2024 Ruth [place] Assessments Encounter Date Diagnosis (ICD Code) Assessment Notes Treatment Notes Treatment Clinical Notes Section Notes 03/22/2024 Essential hypertension (ICD-10 - I10) 03/22/2024 [...] - N18.32) 09/20/2024 Rash (ICD-10 - R21) 09/20/2024 BMI 28.0-28.9,adult (ICD-10 - Z68.28) 03/22/2024 Vitamin D deficiency (ICD-10 - E55.9) 03/22/2024 Prostate cancer screening (ICD-10 - Z12.5) Plan Of Treatment Next Appt Details Provider Name:Ruth geronimo, 03/25/2025 09:30:00 AM, [address] [facility] [address] [facility], [address], [place], [place], [id number], Insurance Providers Payer Name Payer Address Payer Phone Subscriber Number Group Number Insured Name Patient Relationship to Insured Coverage Start Date Coverage End Date [employer] [address] [place] [id number] [phone] [id number] [place] Self - patient is the insured Medications Administered Medication Instructions Date of Administration Dosage Notes Dexamethasone 10/31/2006 1 mL Dexamethasone 06/19/2008 1 mL Medical (General) History Medical History History ICD Code Type 2 Diabetes Hypertension Hypothyroidism Hypertriglyceridemia Hyperlipidemia Gout Renal Insufficiency Testosterone Deficiency Kidney Stones, Multiple BPH, s/p Urology Evaluation Pancreatitis, 2019 Renal Cyst, on CT 10/2019 Surgical History Surgery Date(Month/Year) Colonoscopy 2000 Face Mole Removal 01/2017 Dental Implants RT Ureteral Stent Placement 09/07/2019 Colonoscopy 12/2019 Hospitalization History Reason Date(Month/Year) Kidney Stone- [facility] 08/2019 Vertigo- [facility] 08/10/2010 N/V/D & Dehydration 04/2008
[2025-01-29 13:26] LABS: Anion Gap 17.5 mEq/L (5-15); Blood Urea Nitrogen 34 mg/dl (9-20); Calcium 9.1 mg/dl (8.4-10.2); Carbon Dioxide 20 mmol/L (22.0-30.0); Chloride 108 mmol/L (98-107); Creatinine,Serum 1.90 mg/dl (0.66-1.25); Estimated Glomerular Filt Rate 34 ml/min (>60); GFR (African American) 41 ML/MIN (>60); Glucose 172 mg/dl (74-100); Potassium 5.5 mmoL/L (3.5-5.1); Sodium 140 mmol/L (136-145)
== END 2025-01-29 23:59 | disposition home or self-care (01) ==
LOC: LAB 10:09
PROVIDERS: PCP Family Medicine; Visit Provider Internal Medicine
DX: I10 Essential (primary) hypertension (principal)
CPT/HCPCS: 36415; 80048